=== PATIENT | male | born 1960 | race Two or more races ===

== ENCOUNTER 2016-12-27 12:48 | Inpatient (IN) | payer OTHER ==
[2016-12-27 14:17] VITALS: BMI 29.2
--- NOTE | 2016-12-27 15:58 | HP ---
Admission ROS [facility] Chief Complaint: I am here for rehab, was detox 2weeks ago at a crisis center in [place] and ready now for rehab. Allergies/Adverse Reactions: Allergies Allergy/AdvReac Type Severity Reaction Status Date / Time Fish Containing Products Allergy Severe Hives Verified 12/27/16 15:37 shellfish derived Allergy Severe Hives Verified 12/27/16 15:37 No Known Drug Allergies Allergy Verified 12/27/16 15:37 tomato AdvReac Nausea Verified 12/27/16 15:37 History of Present Illness: pt is a 56yr old male with a history of alcohol dependence seeking rehab for treatment. Pt was detoxed at a [place] crisis center 2 weeks ago. Exam Limitations: No Limitations - Ebola screening Have you traveled outside of the country in the last 21 days: No Have you had contact with anyone from an Ebola affected area: No Have you been sick,other than usual withdrawal symptoms: No Do you have a fever: No - Review of Systems Constitutional: Loss of Appetite EENT: reports: No Symptoms Reported Respiratory: reports: No Symptoms reported Cardiac: reports: No Symptoms Reported GI: reports: Indigestion : reports: No Symptoms Reported Musculoskeletal: reports: No Symptoms Reported Integumentary: reports: No Symptoms Reported Neuro: reports: Headache Endocrine: reports: No Symptoms Reported Hematology: reports: No Symptoms Reported Psychiatric: reports: Judgement Intact, Mood/Affect Appropiate, Orientated x3, Agitated Other Systems: Reviewed and Negative Patient History - Patient Medical History Hx Anemia: No Hx Asthma: No Hx Chronic Obstructive Pulmonary Disease (COPD): No Hx Cancer: No Hx Cardiac Disorders: No Hx Congestive Heart Failure: No Hx Hypertension: No Hx Hypercholesterolemia: No Hx Pacemaker: No HX Cerebrovascular Accident: No Hx Seizures: No (DENIES) Hx Dementia: No Hx Diabetes: Yes (Pt on Metformin and Levimir; ) Hx Gastrointestinal Disorders: Yes (GERD) Hx Liver Disease: No Hx Genitourinary Disorders: No Hx Sexually Transmitted Disorders: No Hx Renal Disease (ESRD): No Hx Thyroid Disease: No Hx Human Immunodeficiency Virus (HIV): No (negative) Hx Hepatitis C: No (negative) Hx Depression: Yes Hx Suicide Attempt: No (denies) Hx Bipolar Disorder: Yes Hx Schizophrenia: No - Patient Surgical History Past Surgical History: No Hx Neurologic Surgery: No Hx Cataract Extraction: No Hx Cardiac Surgery: No Hx Lung Surgery: No Hx Breast Surgery: No Hx Breast Biopsy: No Hx Abdominal Surgery: No Hx Appendectomy: No Hx Cholecystectomy: No Hx Genitourinary Surgery: No Hx Section: No Hx Orthopedic Surgery: Yes (L knee in 2004) Anesthesia Reaction: No - PPD History Previous Implant?: Yes PPD to be Administered?: Yes - Reproductive History Patient is a Female of Child Bearing Age (11 -55 yrs old): No - Smoking Cessation Smoking history: Never smoked Have you smoked in the past 12 months: No Aproximately how many cigarettes per day: 0 Cigars Per Day: 0 Hx Chewing Tobacco Use: No Initiated information on smoking cessation: No - Substance & Tx. History Hx Alcohol Use: Yes Hx Substance Use: Yes Substance Use Type: Alcohol, Cocaine Hx Substance Use Treatment: Yes - Substances Abused Alcohol Route: Oral Frequency: Daily Amount used: 1 case of beer. Age of first use: 17 Date of Last Use: 12/13/16 Cocaine Route: Inhalation Frequency: 1-3 times last 30 days Amount used: $500 Age of first use: 17 Date of Last Use: 12/24/16 Family Disease History - Family Disease History Family Disease History: Diabetes: Brother (HTN), Other: Father (alcohol dependence) Admission Physical Exam S - Vital Signs Vital Signs: Vital Signs - 24 hr 12/27/16 14:15 Temperature 98 F Pulse Rate 94 H Respiratory 20 Rate Blood Pressure 138/89 - Physical General Appearance: Yes: Appropriately Dressed, Mild Distress HEENTM: Yes: Normal Voice Respiratory: Yes: Lungs Clear, Normal Breath Sounds, No Respiratory Distress Neck: Yes: No masses,lesions,Nodules Breast: Yes: Within Normal Limits Cardiology: Yes: Regular Rhythm, Regular Rate, S1, S2 Abdominal: Yes: Normal Bowel Sounds Genitourinary: Yes: Within Normal Limits Back: Yes: Normal Inspection Musculoskeletal: Yes: full range of Motion Extremities: Yes: Normal Inspection, Non-Tender, Tremors Neurological: Yes: Fully Oriented, Alert, Normal Response Integumentary: Yes: Normal Color Lymphatic: Yes: Within Normal Limits - Diagnostic (1) Cocaine abuse Current Visit: Yes Status: Chronic (2) DM Diabetes mellitus type 2 Current Visit: Yes Status: Chronic (3) Gastroesophageal reflux disease Current Visit: Yes Status: Chronic (4) Alcohol abuse, in remission Current Visit: No Status: Chronic Cleared for Admission [facility] - Detox or Rehab [facility] Level of Care: Medically Managed Claeared for Rehab Admission: Yes [facility] Breath Alcohol Content Breath Alcohol Content: 0 Urine Drug Screen - Results Drug Screen Negative: No Urine Drug Screen Results: GALINA-Cocaine
[2016-12-27] MEDS ORDERED: hydrOXYzine PAMOATE 50 MG CAPSULE (FP) PO PRN (16:09)
[2016-12-27] MEDS ORDERED: diphenhydrAMINE HCL 50 MG CAPSULE PO PRN (16:09)
[2016-12-27] MEDS ORDERED: LOPERAMIDE HCL 2 MG CAPSULE PO PRN (16:09)
[2016-12-27] MEDS ORDERED: ACETAMINOPHEN 325 MG TABLET (FP) PO PRN (16:09)
[2016-12-27] MEDS ORDERED: MAG HYDROX/AL HYDROX/SIMETH 30 ML UNIT-DOSE CUP PO PRN (16:09)
[2016-12-27] MEDS ORDERED: MAGNESIUM CITRATE 300 ML BOTTLE PO PRN (16:09)
[2016-12-27] MEDS ORDERED: MAGNESIUM HYDROX 2400MG/30ML ORAL SUSPENSION 30 ML CUP PO PRN (16:09)
[2016-12-27] MEDS ORDERED: guaiFENesin/D-METHORPHAN HB 10 ML UNIT-DOSE CUPS PO PRN (16:09)
[2016-12-27] MEDS ORDERED: MENTHOL/PHENOL 1 EACH UD MM PRN (16:09)
[2016-12-27] MEDS ORDERED: P-EPHED 60MG/TRIPROLIDI 2.5MG TABLET PO PRN (16:09)
[2016-12-27] MEDS: INSULIN (NOVOLOG) ASPART 100 UNITS/ML 10ML VIAL SQ SCH (19:31)
[2016-12-27] MEDS ORDERED: INSULIN (NOVOLOG) ASPART 100 UNITS/ML 10ML VIAL ONE (19:32)
[2016-12-27] MEDS ORDERED: TUBERCULIN PPD 5 TU/0.1ML VIAL ID ONE (19:35)
[2016-12-27] MEDS: metFORMIN HCL 500 MG TABLET (FP) PO SCH (19:38)
[2016-12-27] MEDS ORDERED: traZODone HCL 150 MG TABLET PO SCH (22:00)
[2016-12-27] MEDS: QUEtiapine FUMARATE 300 MG TABLET PO SCH (22:08)
[2016-12-27] MEDS: GABAPENTIN 400 MG CAPSULE (FP) PO SCH (22:08)
[2016-12-27] MEDS: DIVALPROEX SODIUM 500 MG TABLET E.C. PO SCH (22:08)
[2016-12-27] MEDS: DOCUSATE SODIUM 100 MG CAPSULE (FP) PO SCH (22:09)
[2016-12-27] MEDS: INSULIN DETEMIR 100 UNITS/ML MDV SQ SCH (22:19)
[2016-12-27] MEDS: THIAMINE HCL 100 MG TABLET (FP) PO SCH (22:20)
[2016-12-27] MEDS: traZODone HCL 50 MG TABLET (FP) PO SCH (22:40)
[2016-12-28] MEDS: GABAPENTIN 400 MG CAPSULE (FP) PO SCH ×3 (06:33→22:07)
[2016-12-28] MEDS: DOCUSATE SODIUM 100 MG CAPSULE (FP) PO SCH ×3 (06:34→22:08)
[2016-12-28] MEDS: metFORMIN HCL 500 MG TABLET (FP) PO SCH ×2 (06:34→16:48)
[2016-12-28] MEDS: INSULIN (NOVOLOG) ASPART 100 UNITS/ML 10ML VIAL SQ SCH ×3 (06:35→16:48)
[2016-12-28] MEDS ORDERED: INSULIN (NOVOLOG) ASPART 100 UNITS/ML 10ML VIAL ONE ×3 (06:45→22:26)
[2016-12-28] MEDS: SERTRALINE HCL 50 MG TABLET (FP) PO SCH (10:31)
[2016-12-28] MEDS: PRENATAL VITAMINS W/ FOLIC ACID TABLET (FP) PO SCH (10:31)
[2016-12-28] MEDS: PANTOPRAZOLE 40 MG TABLET (FP) PO SCH (10:31)
[2016-12-28 10:44] LABS: MCH 28.9 pg (25.7-33.7); MCHC 33.7 g/dl (32.0-35.9); MEAN CELL VOLUME 85.6 fl (80-96); MEAN PLT VOLUME 9.6 fl (7.5-11.1); PLATELET COUNT 161 K/MM3 (134-434); RDW 14.4 % (11.9-15.9); WHITE BLOOD COUNT 5.1 K/mm3 (4.0-10.0)
[2016-12-28 10:48] LABS: ALBUMIN 4.3 g/dl (3.4-5.0); ALK PHOS 64 U/L (45-117); ANION GAP 9 (8-16); BILIRUBIN,TOTAL 0.8 mg/dL (0.2-1.0); CO2 27 mmol/L (21-32); COCKROFT - GAULT 113.77; GLUCOSE,RANDOM 241 mg/dL (74-106); SGOT/AST 42 U/L (15-37); SGPT/ALT 40 U/L (12-78); TOT PROT 8.2 g/dl (6.4-8.2)
[2016-12-28 11:06] LABS: URINE APPEARANCE CLEAR; URINE BILIRUBIN NEGATIVE (NEGATIVE); URINE BLOOD NEGATIVE (NEGATIVE); URINE COLOR YELLOW; URINE GLUCOSE (UA) 3+ (NEGATIVE); URINE KETONE NEGATIVE (NEGATIVE); URINE LEUK ESTERASE NEGATIVE (NEGATIVE); URINE NITRITE NEGATIVE (NEGATIVE); URINE PROTEIN NEGATIVE (NEGATIVE); URINE UROBILINOGEN 4.0 E.U/dl E.U./dl (0.2-1.0)
--- NOTE | 2016-12-28 19:23 | EKG ---
Test Reason : Blood Pressure : / mmHG Vent. Rate : 086 BPM Atrial Rate : 086 BPM P-R Int : 158 ms QRS Dur : 100 ms QT Int : 374 ms P-R-T Axes : 049 -46 036 degrees QTc Int : 447 ms NORMAL SINUS RHYTHM LEFT ANTERIOR FASCICULAR BLOCK MINIMAL VOLTAGE CRITERIA FOR LVH, MAY BE NORMAL VARIANT ABNORMAL ECG NO PREVIOUS ECGS AVAILABLE Confirmed by ANJU BONILLA MD ([id number]) on 12/28/2016 7:22:52 PM Referred By: Confirmed By:ANJU BONILLA MD
[2016-12-28] MEDS: QUEtiapine FUMARATE 300 MG TABLET PO SCH (22:07)
[2016-12-28] MEDS: DIVALPROEX SODIUM 500 MG TABLET E.C. PO SCH (22:07)
[2016-12-28] MEDS: THIAMINE HCL 100 MG TABLET (FP) PO SCH (22:08)
[2016-12-28] MEDS: traZODone HCL 50 MG TABLET (FP) PO SCH (22:08)
[2016-12-28] MEDS: INSULIN DETEMIR 100 UNITS/ML MDV SQ SCH (22:10)
[2016-12-29] MEDS: metFORMIN HCL 500 MG TABLET (FP) PO SCH ×2 (06:32→16:36)
[2016-12-29] MEDS: GABAPENTIN 400 MG CAPSULE (FP) PO SCH ×3 (06:32→22:03)
[2016-12-29] MEDS: DOCUSATE SODIUM 100 MG CAPSULE (FP) PO SCH ×3 (06:32→22:03)
[2016-12-29] MEDS: INSULIN (NOVOLOG) ASPART 100 UNITS/ML 10ML VIAL SQ SCH ×3 (06:33→16:37)
[2016-12-29] MEDS ORDERED: INSULIN (NOVOLOG) ASPART 100 UNITS/ML 10ML VIAL ONE ×3 (06:38→18:14)
[2016-12-29] MEDS: SERTRALINE HCL 50 MG TABLET (FP) PO SCH (10:24)
[2016-12-29] MEDS: PRENATAL VITAMINS W/ FOLIC ACID TABLET (FP) PO SCH (10:24)
[2016-12-29] MEDS: PANTOPRAZOLE 40 MG TABLET (FP) PO SCH (10:24)
[2016-12-29] MEDS: traZODone HCL 50 MG TABLET (FP) PO SCH (22:02)
[2016-12-29] MEDS: THIAMINE HCL 100 MG TABLET (FP) PO SCH (22:03)
[2016-12-29] MEDS: DIVALPROEX SODIUM 500 MG TABLET E.C. PO SCH (22:03)
[2016-12-29] MEDS: QUEtiapine FUMARATE 300 MG TABLET PO SCH (22:03)
[2016-12-29] MEDS: INSULIN DETEMIR 100 UNITS/ML MDV SQ SCH (22:04)
[2016-12-30] MEDS: INSULIN (NOVOLOG) ASPART 100 UNITS/ML 10ML VIAL SQ SCH ×3 (06:21→16:45)
[2016-12-30] MEDS: metFORMIN HCL 500 MG TABLET (FP) PO SCH ×2 (06:21→16:45)
[2016-12-30] MEDS: GABAPENTIN 400 MG CAPSULE (FP) PO SCH ×3 (06:21→22:05)
[2016-12-30] MEDS: DOCUSATE SODIUM 100 MG CAPSULE (FP) PO SCH ×3 (06:21→22:05)
[2016-12-30] MEDS ORDERED: INSULIN (NOVOLOG) ASPART 100 UNITS/ML 10ML VIAL ONE ×3 (06:49→22:32)
--- NOTE | 2016-12-30 07:41 | HP ---
Psychiatrist Admission - Data Date of interview: 12/30/16 Admission source: [facility] Identifying data: This is one on the several inpatient rehabilitation admissions for this 56 year old male who is ,a father of one, domiciled,unemployed and supported on SSD benefits. Medical History: Diabetes mellitus, low back pain/sciatica, and GERD. H/O surgery to left knee 14 years ago due to work related injury. Psychiatric History: Patient reports his first psychiatric hospitalization was in 2006 due to depression and suicidal ideation) and he [facility]osed with Schizoaffective Disorder.Multiple subsequent psychiatric hospitalizations (eight are accounted by patient) followed over the years, with most recent 3 years ago at [facility], Was admitted to [facility] and [facility]. Reports wili the past few months was visiting ERs to obtain his scripts, he currently on Depakote 100 mg po bid,Trazodone 150 mg po hs and Seroquel 300 mg po hs, Zoloft 150 mg po hs. Physical/Sexual Abuse/Trauma History: Reports no history of physical or sexual abuse, and no history of service. Receives SSD as result of on the job injury to knee (see above). Vital Signs: Vital Signs - 24 hr 12/29/16 12/30/16 12/30/16 13:45 00:30 03:30 Temperature Pulse Rate 89 Respiratory 18 18 18 Rate Blood Pressure 142/73 12/30/16 06:47 Temperature 98.1 F Pulse Rate 84 Respiratory 18 Rate Blood Pressure 145/82 Allergies/Adverse Reactions: Allergies Allergy/AdvReac Type Severity Reaction Status Date / Time Fish Containing Products Allergy Severe Hives Verified 12/27/16 15:37 shellfish derived Allergy Severe Hives Verified 12/27/16 15:37 No Known Drug Allergies Allergy Verified 12/27/16 15:37 tomato AdvReac Nausea Verified 12/27/16 15:37 Date of last physical exam: 12/27/16 Concur with the findings of this exam: Yes - Substance Abuse/Tx History Hx Alcohol Use: Yes (a case of beer daily) Hx Substance Use: Yes Substance Use Type: Cocaine (1-3 times a months) Hx Substance Use Treatment: Yes ([facility] - Admission Criteria Previous failed treatment: Yes Poor recovery environment: Yes Comorbidities: Yes Lacks judgement: Yes Mental Status Exam - Mental Status Exam Alert and Oriented to: Time, Place, Person Cognitive Function: Good Patient Appearance: Well Groomed Mood: Hopeful Affect: Appropriate, Mood Congruent Patient Behavior: Appropriate, Cooperative Speech Pattern: Clear, Appropriate Voice Loudness: Normal Thought Process: Intact, Goal Oriented Thought Disorder: Not Present Hallucinations: Denies Suicidal Ideation: Denies Homicidal Ideation: Denies Insight/Judgement: Fair Sleep: Fair Appetite: Good Muscle strength/Tone: Normal Gait/Station: Normal Psychiatric Findings - Problem List ([place] 1, 2,3) (1) Cocaine abuse Current Visit: Yes Status: Chronic (2) DM Diabetes mellitus type 2 Current Visit: Yes Status: Chronic (3) Gastroesophageal reflux disease Current Visit: Yes Status: Chronic (4) Schizoaffective disorder Current Visit: No Status: Chronic Comment: Endorsed by the patient in this interview. - Initial Treatment Plan Initial Treatment Plan: continue the same medications, will do depakote level in 3 days, monitor progress as needed.
[2016-12-30] MEDS: PRENATAL VITAMINS W/ FOLIC ACID TABLET (FP) PO SCH (10:41)
[2016-12-30] MEDS: PANTOPRAZOLE 40 MG TABLET (FP) PO SCH (10:41)
[2016-12-30] MEDS: SERTRALINE HCL 50 MG TABLET (FP) PO SCH (10:42)
[2016-12-30] MEDS: THIAMINE HCL 100 MG TABLET (FP) PO SCH (22:04)
[2016-12-30] MEDS: QUEtiapine FUMARATE 300 MG TABLET PO SCH (22:04)
[2016-12-30] MEDS: DIVALPROEX SODIUM 500 MG TABLET E.C. PO SCH (22:05)
[2016-12-30] MEDS: traZODone HCL 50 MG TABLET (FP) PO SCH (22:05)
[2016-12-30] MEDS: INSULIN DETEMIR 100 UNITS/ML MDV SQ SCH (22:07)
[2016-12-31] MEDS: GABAPENTIN 400 MG CAPSULE (FP) PO SCH ×3 (06:07→21:58)
[2016-12-31] MEDS: INSULIN (NOVOLOG) ASPART 100 UNITS/ML 10ML VIAL SQ SCH ×3 (06:07→16:50)
[2016-12-31] MEDS: metFORMIN HCL 500 MG TABLET (FP) PO SCH ×2 (06:07→16:51)
[2016-12-31] MEDS: DOCUSATE SODIUM 100 MG CAPSULE (FP) PO SCH ×3 (06:07→21:59)
[2016-12-31] MEDS ORDERED: INSULIN (NOVOLOG) ASPART 100 UNITS/ML 10ML VIAL ONE ×3 (06:48→16:50)
[2016-12-31] MEDS: SERTRALINE HCL 50 MG TABLET (FP) PO SCH (10:34)
[2016-12-31] MEDS: PANTOPRAZOLE 40 MG TABLET (FP) PO SCH (10:35)
[2016-12-31] MEDS: PRENATAL VITAMINS W/ FOLIC ACID TABLET (FP) PO SCH (10:35)
[2016-12-31] MEDS: traZODone HCL 50 MG TABLET (FP) PO SCH (21:58)
[2016-12-31] MEDS: THIAMINE HCL 100 MG TABLET (FP) PO SCH (21:58)
[2016-12-31] MEDS: QUEtiapine FUMARATE 300 MG TABLET PO SCH (21:58)
[2016-12-31] MEDS: DIVALPROEX SODIUM 500 MG TABLET E.C. PO SCH (21:58)
[2016-12-31] MEDS: INSULIN DETEMIR 100 UNITS/ML MDV SQ SCH (21:59)
[2017-01-01] MEDS: INSULIN (NOVOLOG) ASPART 100 UNITS/ML 10ML VIAL SQ SCH ×3 (06:18→16:49)
[2017-01-01] MEDS: metFORMIN HCL 500 MG TABLET (FP) PO SCH ×2 (06:18→16:51)
[2017-01-01] MEDS: GABAPENTIN 400 MG CAPSULE (FP) PO SCH ×3 (06:18→22:03)
[2017-01-01] MEDS: DOCUSATE SODIUM 100 MG CAPSULE (FP) PO SCH ×3 (06:18→22:03)
[2017-01-01] MEDS ORDERED: INSULIN (NOVOLOG) ASPART 100 UNITS/ML 10ML VIAL ONE ×3 (06:40→16:50)
[2017-01-01] MEDS: SERTRALINE HCL 50 MG TABLET (FP) PO SCH (10:56)
[2017-01-01] MEDS: PANTOPRAZOLE 40 MG TABLET (FP) PO SCH (10:56)
[2017-01-01] MEDS: PRENATAL VITAMINS W/ FOLIC ACID TABLET (FP) PO SCH (10:56)
[2017-01-01] MEDS: IBUPROFEN 400 MG TABLET (FP) PO PRN (17:36)
[2017-01-01] MEDS: THIAMINE HCL 100 MG TABLET (FP) PO SCH (22:03)
[2017-01-01] MEDS: traZODone HCL 50 MG TABLET (FP) PO SCH (22:03)
[2017-01-01] MEDS: DIVALPROEX SODIUM 500 MG TABLET E.C. PO SCH (22:03)
[2017-01-01] MEDS: QUEtiapine FUMARATE 300 MG TABLET PO SCH (22:03)
[2017-01-01] MEDS: INSULIN DETEMIR 100 UNITS/ML MDV SQ SCH (22:08)
[2017-01-02] MEDS: metFORMIN HCL 500 MG TABLET (FP) PO SCH ×2 (06:07→16:39)
[2017-01-02] MEDS: GABAPENTIN 400 MG CAPSULE (FP) PO SCH ×3 (06:07→22:07)
[2017-01-02] MEDS: INSULIN (NOVOLOG) ASPART 100 UNITS/ML 10ML VIAL SQ SCH ×3 (06:07→16:40)
[2017-01-02] MEDS: DOCUSATE SODIUM 100 MG CAPSULE (FP) PO SCH ×3 (06:07→22:07)
[2017-01-02] MEDS ORDERED: INSULIN (NOVOLOG) ASPART 100 UNITS/ML 10ML VIAL ONE ×3 (06:45→16:38)
[2017-01-02] MEDS: SERTRALINE HCL 50 MG TABLET (FP) PO SCH (10:50)
[2017-01-02] MEDS: PRENATAL VITAMINS W/ FOLIC ACID TABLET (FP) PO SCH (10:50)
[2017-01-02] MEDS: PANTOPRAZOLE 40 MG TABLET (FP) PO SCH (10:50)
[2017-01-02] MEDS: DIVALPROEX SODIUM 500 MG TABLET E.C. PO SCH (22:07)
[2017-01-02] MEDS: traZODone HCL 50 MG TABLET (FP) PO SCH (22:07)
[2017-01-02] MEDS: QUEtiapine FUMARATE 300 MG TABLET PO SCH (22:08)
[2017-01-02] MEDS: THIAMINE HCL 100 MG TABLET (FP) PO SCH (22:08)
[2017-01-02] MEDS: INSULIN DETEMIR 100 UNITS/ML MDV SQ SCH (22:10)
[2017-01-03] MEDS: DOCUSATE SODIUM 100 MG CAPSULE (FP) PO SCH ×3 (05:54→22:03)
[2017-01-03] MEDS: GABAPENTIN 400 MG CAPSULE (FP) PO SCH ×3 (05:54→22:03)
[2017-01-03] MEDS ORDERED: INSULIN (NOVOLOG) ASPART 100 UNITS/ML 10ML VIAL ONE ×3 (06:38→16:50)
[2017-01-03] MEDS: metFORMIN HCL 500 MG TABLET (FP) PO SCH ×2 (06:41→16:51)
[2017-01-03] MEDS: INSULIN (NOVOLOG) ASPART 100 UNITS/ML 10ML VIAL SQ SCH ×3 (06:41→16:52)
[2017-01-03] MEDS: SERTRALINE HCL 50 MG TABLET (FP) PO SCH (10:45)
[2017-01-03] MEDS: PANTOPRAZOLE 40 MG TABLET (FP) PO SCH (10:45)
[2017-01-03] MEDS: PRENATAL VITAMINS W/ FOLIC ACID TABLET (FP) PO SCH (10:45)
[2017-01-03] MEDS: IBUPROFEN 400 MG TABLET (FP) PO PRN (15:56)
[2017-01-03] MEDS: THIAMINE HCL 100 MG TABLET (FP) PO SCH (22:03)
[2017-01-03] MEDS: QUEtiapine FUMARATE 300 MG TABLET PO SCH (22:03)
[2017-01-03] MEDS: DIVALPROEX SODIUM 500 MG TABLET E.C. PO SCH (22:03)
[2017-01-03] MEDS: traZODone HCL 50 MG TABLET (FP) PO SCH (22:03)
[2017-01-03] MEDS: INSULIN DETEMIR 100 UNITS/ML MDV SQ SCH (22:05)
[2017-01-04] MEDS: INSULIN (NOVOLOG) ASPART 100 UNITS/ML 10ML VIAL SQ SCH ×3 (06:10→16:44)
[2017-01-04] MEDS: GABAPENTIN 400 MG CAPSULE (FP) PO SCH ×3 (06:10→21:56)
[2017-01-04] MEDS: metFORMIN HCL 500 MG TABLET (FP) PO SCH ×2 (06:10→16:45)
[2017-01-04] MEDS: DOCUSATE SODIUM 100 MG CAPSULE (FP) PO SCH ×3 (06:10→21:55)
[2017-01-04] MEDS ORDERED: INSULIN (NOVOLOG) ASPART 100 UNITS/ML 10ML VIAL ONE ×3 (07:09→16:44)
[2017-01-04] MEDS: SERTRALINE HCL 50 MG TABLET (FP) PO SCH (10:40)
[2017-01-04] MEDS: PANTOPRAZOLE 40 MG TABLET (FP) PO SCH (10:40)
[2017-01-04] MEDS: PRENATAL VITAMINS W/ FOLIC ACID TABLET (FP) PO SCH (10:40)
[2017-01-04] MEDS: QUEtiapine FUMARATE 300 MG TABLET PO SCH (21:55)
[2017-01-04] MEDS: THIAMINE HCL 100 MG TABLET (FP) PO SCH (21:55)
[2017-01-04] MEDS: traZODone HCL 50 MG TABLET (FP) PO SCH (21:56)
[2017-01-04] MEDS: INSULIN DETEMIR 100 UNITS/ML MDV SQ SCH (21:56)
[2017-01-04] MEDS: DIVALPROEX SODIUM 500 MG TABLET E.C. PO SCH (21:56)
[2017-01-05] MEDS: DOCUSATE SODIUM 100 MG CAPSULE (FP) PO SCH ×3 (06:10→21:46)
[2017-01-05] MEDS: metFORMIN HCL 500 MG TABLET (FP) PO SCH ×2 (06:10→16:50)
[2017-01-05] MEDS: INSULIN (NOVOLOG) ASPART 100 UNITS/ML 10ML VIAL SQ SCH ×3 (06:10→16:49)
[2017-01-05] MEDS: GABAPENTIN 400 MG CAPSULE (FP) PO SCH ×3 (06:10→21:46)
[2017-01-05] MEDS ORDERED: INSULIN (NOVOLOG) ASPART 100 UNITS/ML 10ML VIAL ONE ×3 (06:50→16:50)
[2017-01-05] MEDS: SERTRALINE HCL 50 MG TABLET (FP) PO SCH (10:47)
[2017-01-05] MEDS: PANTOPRAZOLE 40 MG TABLET (FP) PO SCH (10:47)
[2017-01-05] MEDS: PRENATAL VITAMINS W/ FOLIC ACID TABLET (FP) PO SCH (10:47)
[2017-01-05] MEDS: QUEtiapine FUMARATE 300 MG TABLET PO SCH (21:46)
[2017-01-05] MEDS: DIVALPROEX SODIUM 500 MG TABLET E.C. PO SCH (21:46)
[2017-01-05] MEDS: traZODone HCL 50 MG TABLET (FP) PO SCH (21:46)
[2017-01-05] MEDS: INSULIN DETEMIR 100 UNITS/ML MDV SQ SCH (21:46)
[2017-01-05] MEDS: THIAMINE HCL 100 MG TABLET (FP) PO SCH (21:46)
[2017-01-06] MEDS: DOCUSATE SODIUM 100 MG CAPSULE (FP) PO SCH ×3 (06:34→22:06)
[2017-01-06] MEDS: GABAPENTIN 400 MG CAPSULE (FP) PO SCH ×3 (06:34→22:05)
[2017-01-06] MEDS: metFORMIN HCL 500 MG TABLET (FP) PO SCH ×2 (06:34→16:42)
[2017-01-06] MEDS: INSULIN (NOVOLOG) ASPART 100 UNITS/ML 10ML VIAL SQ SCH ×3 (06:35→16:45)
[2017-01-06] MEDS ORDERED: INSULIN (NOVOLOG) ASPART 100 UNITS/ML 10ML VIAL ONE ×3 (06:48→16:44)
[2017-01-06] MEDS: SERTRALINE HCL 50 MG TABLET (FP) PO SCH (10:46)
[2017-01-06] MEDS: PANTOPRAZOLE 40 MG TABLET (FP) PO SCH (10:46)
[2017-01-06] MEDS: PRENATAL VITAMINS W/ FOLIC ACID TABLET (FP) PO SCH (10:46)
--- NOTE | 2017-01-06 10:56 | PN ---
[facility] Progress Note Note: pain in the left lower gum,gingivitis,pen vee k 500 mgs po q 6hrs x 7days, motrin 800mgs tid prn,
[2017-01-06] MEDS: PENICILLIN V POTASSIUM 500 MG TABLET PO SCH ×2 (11:57→17:44)
[2017-01-06] MEDS: IBUPROFEN 400 MG TABLET (FP) PO PRN (16:16)
[2017-01-06] MEDS: DIVALPROEX SODIUM 500 MG TABLET E.C. PO SCH (22:05)
[2017-01-06] MEDS: QUEtiapine FUMARATE 300 MG TABLET PO SCH (22:06)
[2017-01-06] MEDS: traZODone HCL 50 MG TABLET (FP) PO SCH (22:06)
[2017-01-06] MEDS: THIAMINE HCL 100 MG TABLET (FP) PO SCH (22:06)
[2017-01-06] MEDS: INSULIN DETEMIR 100 UNITS/ML MDV SQ SCH (22:07)
[2017-01-07] MEDS: PENICILLIN V POTASSIUM 500 MG TABLET PO SCH ×5 (00:44→23:55)
[2017-01-07] MEDS: DOCUSATE SODIUM 100 MG CAPSULE (FP) PO SCH ×3 (06:36→21:51)
[2017-01-07] MEDS: metFORMIN HCL 500 MG TABLET (FP) PO SCH ×2 (06:36→16:40)
[2017-01-07] MEDS: GABAPENTIN 400 MG CAPSULE (FP) PO SCH ×3 (06:36→21:51)
[2017-01-07] MEDS: INSULIN (NOVOLOG) ASPART 100 UNITS/ML 10ML VIAL SQ SCH ×3 (06:37→16:40)
[2017-01-07] MEDS ORDERED: INSULIN (NOVOLOG) ASPART 100 UNITS/ML 10ML VIAL ONE ×3 (06:39→16:38)
[2017-01-07] MEDS: SERTRALINE HCL 50 MG TABLET (FP) PO SCH (10:44)
[2017-01-07] MEDS: IBUPROFEN 400 MG TABLET (FP) PO PRN ×2 (10:45→18:11)
[2017-01-07] MEDS: PRENATAL VITAMINS W/ FOLIC ACID TABLET (FP) PO SCH (10:45)
[2017-01-07] MEDS: PANTOPRAZOLE 40 MG TABLET (FP) PO SCH (10:45)
[2017-01-07] MEDS: DIVALPROEX SODIUM 500 MG TABLET E.C. PO SCH (21:51)
[2017-01-07] MEDS: THIAMINE HCL 100 MG TABLET (FP) PO SCH (21:51)
[2017-01-07] MEDS: traZODone HCL 50 MG TABLET (FP) PO SCH (21:51)
[2017-01-07] MEDS: QUEtiapine FUMARATE 300 MG TABLET PO SCH (21:51)
[2017-01-07] MEDS: INSULIN DETEMIR 100 UNITS/ML MDV SQ SCH (21:53)
[2017-01-08] MEDS: GABAPENTIN 400 MG CAPSULE (FP) PO SCH ×3 (06:15→22:12)
[2017-01-08] MEDS: metFORMIN HCL 500 MG TABLET (FP) PO SCH ×2 (06:16→16:56)
[2017-01-08] MEDS: PENICILLIN V POTASSIUM 500 MG TABLET PO SCH ×4 (06:16→23:44)
[2017-01-08] MEDS: INSULIN (NOVOLOG) ASPART 100 UNITS/ML 10ML VIAL SQ SCH ×4 (06:16→22:11)
[2017-01-08] MEDS: DOCUSATE SODIUM 100 MG CAPSULE (FP) PO SCH ×3 (06:16→22:12)
[2017-01-08] MEDS ORDERED: INSULIN (NOVOLOG) ASPART 100 UNITS/ML 10ML VIAL ONE ×4 (06:56→22:11)
[2017-01-08] MEDS: SERTRALINE HCL 50 MG TABLET (FP) PO SCH (10:02)
[2017-01-08] MEDS: PANTOPRAZOLE 40 MG TABLET (FP) PO SCH (10:02)
[2017-01-08] MEDS: PRENATAL VITAMINS W/ FOLIC ACID TABLET (FP) PO SCH (10:02)
[2017-01-08] MEDS: IBUPROFEN 400 MG TABLET (FP) PO PRN ×2 (11:01→19:56)
[2017-01-08] MEDS: THIAMINE HCL 100 MG TABLET (FP) PO SCH (22:11)
[2017-01-08] MEDS: traZODone HCL 50 MG TABLET (FP) PO SCH (22:11)
[2017-01-08] MEDS: QUEtiapine FUMARATE 300 MG TABLET PO SCH (22:12)
[2017-01-08] MEDS: INSULIN DETEMIR 100 UNITS/ML MDV SQ SCH (22:12)
[2017-01-08] MEDS: DIVALPROEX SODIUM 500 MG TABLET E.C. PO SCH (22:12)
[2017-01-09] MEDS: DOCUSATE SODIUM 100 MG CAPSULE (FP) PO SCH ×3 (06:02→22:17)
[2017-01-09] MEDS: GABAPENTIN 400 MG CAPSULE (FP) PO SCH ×3 (06:02→22:17)
[2017-01-09] MEDS: PENICILLIN V POTASSIUM 500 MG TABLET PO SCH ×4 (06:02→23:17)
[2017-01-09] MEDS: INSULIN (NOVOLOG) ASPART 100 UNITS/ML 10ML VIAL SQ SCH ×4 (06:02→22:16)
[2017-01-09] MEDS: metFORMIN HCL 500 MG TABLET (FP) PO SCH ×2 (06:02→16:56)
[2017-01-09] MEDS ORDERED: INSULIN (NOVOLOG) ASPART 100 UNITS/ML 10ML VIAL ONE ×3 (06:51→17:19)
[2017-01-09] MEDS: SERTRALINE HCL 50 MG TABLET (FP) PO SCH (10:17)
[2017-01-09] MEDS: PRENATAL VITAMINS W/ FOLIC ACID TABLET (FP) PO SCH (10:17)
[2017-01-09] MEDS: PANTOPRAZOLE 40 MG TABLET (FP) PO SCH (10:17)
[2017-01-09] MEDS: IBUPROFEN 400 MG TABLET (FP) PO PRN (10:18)
[2017-01-09] MEDS: CYCLOBENZAPRINE HCL 10 MG TABLET (FP) PO PRN (13:09)
[2017-01-09] MEDS: QUEtiapine FUMARATE 300 MG TABLET PO SCH (22:17)
[2017-01-09] MEDS: THIAMINE HCL 100 MG TABLET (FP) PO SCH (22:17)
[2017-01-09] MEDS: traZODone HCL 50 MG TABLET (FP) PO SCH (22:17)
[2017-01-09] MEDS: INSULIN DETEMIR 100 UNITS/ML MDV SQ SCH (22:17)
[2017-01-09] MEDS: DIVALPROEX SODIUM 500 MG TABLET E.C. PO SCH (22:17)
[2017-01-10] MEDS: PENICILLIN V POTASSIUM 500 MG TABLET PO SCH ×3 (06:07→17:32)
[2017-01-10] MEDS: INSULIN (NOVOLOG) ASPART 100 UNITS/ML 10ML VIAL SQ SCH ×4 (06:07→22:20)
[2017-01-10] MEDS: DOCUSATE SODIUM 100 MG CAPSULE (FP) PO SCH ×3 (06:07→22:15)
[2017-01-10] MEDS: GABAPENTIN 400 MG CAPSULE (FP) PO SCH ×3 (06:07→22:15)
[2017-01-10] MEDS: metFORMIN HCL 500 MG TABLET (FP) PO SCH ×2 (06:07→16:50)
[2017-01-10] MEDS ORDERED: INSULIN (NOVOLOG) ASPART 100 UNITS/ML 10ML VIAL ONE ×5 (07:01→23:10)
[2017-01-10] MEDS: PANTOPRAZOLE 40 MG TABLET (FP) PO SCH (10:41)
[2017-01-10] MEDS: SERTRALINE HCL 50 MG TABLET (FP) PO SCH (10:41)
[2017-01-10] MEDS: PRENATAL VITAMINS W/ FOLIC ACID TABLET (FP) PO SCH (10:41)
[2017-01-10] MEDS: CYCLOBENZAPRINE HCL 10 MG TABLET (FP) PO PRN (10:41)
[2017-01-10] MEDS: IBUPROFEN 400 MG TABLET (FP) PO PRN ×2 (11:58→22:16)
--- NOTE | 2017-01-10 14:33 | PN ---
S Progress Note Note: blood result reviewed with the patient , continue the same management.
[2017-01-10] MEDS: QUEtiapine FUMARATE 300 MG TABLET PO SCH (22:13)
[2017-01-10] MEDS: DIVALPROEX SODIUM 500 MG TABLET E.C. PO SCH (22:14)
[2017-01-10] MEDS: traZODone HCL 50 MG TABLET (FP) PO SCH (22:15)
[2017-01-10] MEDS: INSULIN DETEMIR 100 UNITS/ML MDV SQ SCH (22:18)
[2017-01-10] MEDS: THIAMINE HCL 100 MG TABLET (FP) PO SCH (22:20)
[2017-01-11] MEDS: PENICILLIN V POTASSIUM 500 MG TABLET PO SCH ×5 (01:15→23:30)
[2017-01-11] MEDS: metFORMIN HCL 500 MG TABLET (FP) PO SCH ×2 (06:16→16:39)
[2017-01-11] MEDS: GABAPENTIN 400 MG CAPSULE (FP) PO SCH ×3 (06:16→23:30)
[2017-01-11] MEDS: DOCUSATE SODIUM 100 MG CAPSULE (FP) PO SCH ×3 (06:16→22:23)
[2017-01-11] MEDS: INSULIN (NOVOLOG) ASPART 100 UNITS/ML 10ML VIAL SQ SCH ×4 (06:17→22:21)
[2017-01-11] MEDS: PRENATAL VITAMINS W/ FOLIC ACID TABLET (FP) PO SCH (10:25)
[2017-01-11] MEDS: PANTOPRAZOLE 40 MG TABLET (FP) PO SCH (10:25)
[2017-01-11] MEDS: SERTRALINE HCL 50 MG TABLET (FP) PO SCH (10:25)
[2017-01-11] MEDS ORDERED: INSULIN (NOVOLOG) ASPART 100 UNITS/ML 10ML VIAL ONE ×3 (11:46→22:59)
[2017-01-11] MEDS: IBUPROFEN 400 MG TABLET (FP) PO PRN (18:24)
[2017-01-11] MEDS: INSULIN DETEMIR 100 UNITS/ML MDV SQ SCH (22:22)
[2017-01-11] MEDS: THIAMINE HCL 100 MG TABLET (FP) PO SCH (22:23)
[2017-01-11] MEDS: QUEtiapine FUMARATE 300 MG TABLET PO SCH (22:23)
[2017-01-11] MEDS: DIVALPROEX SODIUM 500 MG TABLET E.C. PO SCH (22:23)
[2017-01-11] MEDS: traZODone HCL 50 MG TABLET (FP) PO SCH (22:24)
[2017-01-12] MEDS: metFORMIN HCL 500 MG TABLET (FP) PO SCH ×2 (06:07→16:49)
[2017-01-12] MEDS: DOCUSATE SODIUM 100 MG CAPSULE (FP) PO SCH ×3 (06:07→22:20)
[2017-01-12] MEDS: PENICILLIN V POTASSIUM 500 MG TABLET PO SCH ×3 (06:07→18:07)
[2017-01-12] MEDS: GABAPENTIN 400 MG CAPSULE (FP) PO SCH ×3 (06:07→22:20)
[2017-01-12] MEDS: INSULIN (NOVOLOG) ASPART 100 UNITS/ML 10ML VIAL SQ SCH ×4 (06:07→22:18)
[2017-01-12] MEDS: PANTOPRAZOLE 40 MG TABLET (FP) PO SCH (10:48)
[2017-01-12] MEDS: SERTRALINE HCL 50 MG TABLET (FP) PO SCH (10:48)
[2017-01-12] MEDS: PRENATAL VITAMINS W/ FOLIC ACID TABLET (FP) PO SCH (10:48)
[2017-01-12] MEDS: IBUPROFEN 400 MG TABLET (FP) PO PRN (10:49)
[2017-01-12] MEDS ORDERED: INSULIN (NOVOLOG) ASPART 100 UNITS/ML 10ML VIAL ONE ×4 (12:06→22:34)
[2017-01-12] MEDS: INSULIN DETEMIR 100 UNITS/ML MDV SQ SCH (22:19)
[2017-01-12] MEDS: DIVALPROEX SODIUM 500 MG TABLET E.C. PO SCH (22:19)
[2017-01-12] MEDS: traZODone HCL 50 MG TABLET (FP) PO SCH (22:20)
[2017-01-12] MEDS: QUEtiapine FUMARATE 300 MG TABLET PO SCH (22:20)
[2017-01-12] MEDS: THIAMINE HCL 100 MG TABLET (FP) PO SCH (22:20)
[2017-01-13] MEDS: PENICILLIN V POTASSIUM 500 MG TABLET PO SCH ×3 (01:03→14:39)
[2017-01-13] MEDS: GABAPENTIN 400 MG CAPSULE (FP) PO SCH ×3 (05:41→22:12)
[2017-01-13] MEDS: DOCUSATE SODIUM 100 MG CAPSULE (FP) PO SCH ×3 (05:41→22:12)
[2017-01-13] MEDS ORDERED: INSULIN (NOVOLOG) ASPART 100 UNITS/ML 10ML VIAL ONE ×3 (06:46→22:39)
[2017-01-13] MEDS: INSULIN (NOVOLOG) ASPART 100 UNITS/ML 10ML VIAL SQ SCH ×4 (06:47→22:09)
[2017-01-13] MEDS: metFORMIN HCL 500 MG TABLET (FP) PO SCH ×2 (06:47→16:57)
[2017-01-13] MEDS: IBUPROFEN 400 MG TABLET (FP) PO PRN (10:55)
[2017-01-13] MEDS: SERTRALINE HCL 50 MG TABLET (FP) PO SCH (10:56)
[2017-01-13] MEDS: PANTOPRAZOLE 40 MG TABLET (FP) PO SCH (10:56)
[2017-01-13] MEDS: PRENATAL VITAMINS W/ FOLIC ACID TABLET (FP) PO SCH (10:56)
[2017-01-13] MEDS: INSULIN DETEMIR 100 UNITS/ML MDV SQ SCH (22:11)
[2017-01-13] MEDS: traZODone HCL 50 MG TABLET (FP) PO SCH (22:12)
[2017-01-13] MEDS: QUEtiapine FUMARATE 300 MG TABLET PO SCH (22:12)
[2017-01-13] MEDS: THIAMINE HCL 100 MG TABLET (FP) PO SCH (22:12)
[2017-01-13] MEDS: DIVALPROEX SODIUM 500 MG TABLET E.C. PO SCH (22:12)
[2017-01-14] MEDS: metFORMIN HCL 500 MG TABLET (FP) PO SCH ×2 (06:01→16:47)
[2017-01-14] MEDS: GABAPENTIN 400 MG CAPSULE (FP) PO SCH ×3 (06:01→22:14)
[2017-01-14] MEDS: DOCUSATE SODIUM 100 MG CAPSULE (FP) PO SCH ×3 (06:01→22:14)
[2017-01-14] MEDS: INSULIN (NOVOLOG) ASPART 100 UNITS/ML 10ML VIAL SQ SCH ×4 (06:02→22:14)
[2017-01-14] MEDS ORDERED: INSULIN (NOVOLOG) ASPART 100 UNITS/ML 10ML VIAL ONE ×3 (07:00→22:26)
[2017-01-14] MEDS: SERTRALINE HCL 50 MG TABLET (FP) PO SCH (10:55)
[2017-01-14] MEDS: PANTOPRAZOLE 40 MG TABLET (FP) PO SCH (10:55)
[2017-01-14] MEDS: PRENATAL VITAMINS W/ FOLIC ACID TABLET (FP) PO SCH (10:55)
[2017-01-14] MEDS: QUEtiapine FUMARATE 300 MG TABLET PO SCH (22:14)
[2017-01-14] MEDS: traZODone HCL 50 MG TABLET (FP) PO SCH (22:14)
[2017-01-14] MEDS: THIAMINE HCL 100 MG TABLET (FP) PO SCH (22:14)
[2017-01-14] MEDS: DIVALPROEX SODIUM 500 MG TABLET E.C. PO SCH (22:14)
[2017-01-14] MEDS: INSULIN DETEMIR 100 UNITS/ML MDV SQ SCH (22:15)
[2017-01-15] MEDS: metFORMIN HCL 500 MG TABLET (FP) PO SCH ×2 (06:03→16:46)
[2017-01-15] MEDS: DOCUSATE SODIUM 100 MG CAPSULE (FP) PO SCH ×3 (06:03→22:02)
[2017-01-15] MEDS: GABAPENTIN 400 MG CAPSULE (FP) PO SCH ×3 (06:03→22:02)
[2017-01-15] MEDS: INSULIN (NOVOLOG) ASPART 100 UNITS/ML 10ML VIAL SQ SCH ×4 (06:03→22:00)
[2017-01-15] MEDS ORDERED: INSULIN (NOVOLOG) ASPART 100 UNITS/ML 10ML VIAL ONE ×4 (06:55→22:06)
[2017-01-15] MEDS: PRENATAL VITAMINS W/ FOLIC ACID TABLET (FP) PO SCH (10:51)
[2017-01-15] MEDS: SERTRALINE HCL 50 MG TABLET (FP) PO SCH (10:51)
[2017-01-15] MEDS: PANTOPRAZOLE 40 MG TABLET (FP) PO SCH (10:51)
[2017-01-15] MEDS: IBUPROFEN 400 MG TABLET (FP) PO PRN (10:51)
[2017-01-15] MEDS: DIVALPROEX SODIUM 500 MG TABLET E.C. PO SCH (22:02)
[2017-01-15] MEDS: THIAMINE HCL 100 MG TABLET (FP) PO SCH (22:02)
[2017-01-15] MEDS: INSULIN DETEMIR 100 UNITS/ML MDV SQ SCH (22:02)
[2017-01-15] MEDS: traZODone HCL 50 MG TABLET (FP) PO SCH (22:02)
[2017-01-15] MEDS: QUEtiapine FUMARATE 300 MG TABLET PO SCH (22:02)
[2017-01-16] MEDS: INSULIN (NOVOLOG) ASPART 100 UNITS/ML 10ML VIAL SQ SCH ×4 (06:02→22:17)
[2017-01-16] MEDS: DOCUSATE SODIUM 100 MG CAPSULE (FP) PO SCH ×3 (06:02→22:15)
[2017-01-16] MEDS: metFORMIN HCL 500 MG TABLET (FP) PO SCH ×2 (06:02→16:43)
[2017-01-16] MEDS: GABAPENTIN 400 MG CAPSULE (FP) PO SCH ×3 (06:02→22:14)
[2017-01-16] MEDS ORDERED: INSULIN (NOVOLOG) ASPART 100 UNITS/ML 10ML VIAL ONE ×3 (06:46→18:37)
[2017-01-16] MEDS: IBUPROFEN 400 MG TABLET (FP) PO PRN (10:51)
[2017-01-16] MEDS: PANTOPRAZOLE 40 MG TABLET (FP) PO SCH (10:51)
[2017-01-16] MEDS: PRENATAL VITAMINS W/ FOLIC ACID TABLET (FP) PO SCH (10:51)
[2017-01-16] MEDS: SERTRALINE HCL 50 MG TABLET (FP) PO SCH (10:51)
[2017-01-16] MEDS: traZODone HCL 50 MG TABLET (FP) PO SCH (22:14)
[2017-01-16] MEDS: QUEtiapine FUMARATE 300 MG TABLET PO SCH (22:14)
[2017-01-16] MEDS: THIAMINE HCL 100 MG TABLET (FP) PO SCH (22:15)
[2017-01-16] MEDS: DIVALPROEX SODIUM 500 MG TABLET E.C. PO SCH (22:15)
[2017-01-16] MEDS: INSULIN DETEMIR 100 UNITS/ML MDV SQ SCH (22:16)
[2017-01-17] MEDS: GABAPENTIN 400 MG CAPSULE (FP) PO SCH ×3 (05:32→21:38)
[2017-01-17] MEDS: DOCUSATE SODIUM 100 MG CAPSULE (FP) PO SCH ×3 (05:32→21:38)
[2017-01-17] MEDS ORDERED: INSULIN (NOVOLOG) ASPART 100 UNITS/ML 10ML VIAL ONE ×4 (06:07→22:26)
[2017-01-17] MEDS: INSULIN (NOVOLOG) ASPART 100 UNITS/ML 10ML VIAL SQ SCH ×4 (06:43→21:36)
[2017-01-17] MEDS: metFORMIN HCL 500 MG TABLET (FP) PO SCH ×2 (06:43→16:48)
[2017-01-17] MEDS: PANTOPRAZOLE 40 MG TABLET (FP) PO SCH (10:33)
[2017-01-17] MEDS: SERTRALINE HCL 50 MG TABLET (FP) PO SCH (10:33)
[2017-01-17] MEDS: PRENATAL VITAMINS W/ FOLIC ACID TABLET (FP) PO SCH (10:34)
[2017-01-17] MEDS: IBUPROFEN 400 MG TABLET (FP) PO PRN (10:34)
[2017-01-17] MEDS ORDERED: HYDROCHLOROTHIAZIDE 25 MG TABLET (FP) PO ONE (14:00)
[2017-01-17] MEDS: INSULIN DETEMIR 100 UNITS/ML MDV SQ SCH (21:37)
[2017-01-17] MEDS: THIAMINE HCL 100 MG TABLET (FP) PO SCH (21:37)
[2017-01-17] MEDS: DIVALPROEX SODIUM 500 MG TABLET E.C. PO SCH (21:37)
[2017-01-17] MEDS: QUEtiapine FUMARATE 300 MG TABLET PO SCH (21:38)
[2017-01-17] MEDS: traZODone HCL 50 MG TABLET (FP) PO SCH (21:38)
[2017-01-18] MEDS: GABAPENTIN 400 MG CAPSULE (FP) PO SCH ×3 (06:10→22:05)
[2017-01-18] MEDS: INSULIN (NOVOLOG) ASPART 100 UNITS/ML 10ML VIAL SQ SCH ×4 (06:10→22:10)
[2017-01-18] MEDS: metFORMIN HCL 500 MG TABLET (FP) PO SCH ×2 (06:10→16:47)
[2017-01-18] MEDS: DOCUSATE SODIUM 100 MG CAPSULE (FP) PO SCH ×3 (06:11→22:06)
[2017-01-18] MEDS ORDERED: INSULIN (NOVOLOG) ASPART 100 UNITS/ML 10ML VIAL ONE ×4 (06:48→16:49)
[2017-01-18] MEDS: PRENATAL VITAMINS W/ FOLIC ACID TABLET (FP) PO SCH (10:18)
[2017-01-18] MEDS: SERTRALINE HCL 50 MG TABLET (FP) PO SCH (10:18)
[2017-01-18] MEDS: HYDROCHLOROTHIAZIDE 25 MG TABLET (FP) PO SCH (10:18)
[2017-01-18] MEDS: PANTOPRAZOLE 40 MG TABLET (FP) PO SCH (10:18)
[2017-01-18] MEDS ORDERED: INSULIN (NOVOLOG) ASPART 100 UNITS/ML 10ML VIAL SQ ONE (10:43)
--- NOTE | 2017-01-18 10:43 | PN ---
[facility] Progress Note Note: BGM 403 NOVOLOG 12 UNIT SQ NOW,BGM MONITORING
[2017-01-18] MEDS: DIVALPROEX SODIUM 500 MG TABLET E.C. PO SCH (22:05)
[2017-01-18] MEDS: QUEtiapine FUMARATE 300 MG TABLET PO SCH (22:06)
[2017-01-18] MEDS: traZODone HCL 50 MG TABLET (FP) PO SCH (22:06)
[2017-01-18] MEDS: THIAMINE HCL 100 MG TABLET (FP) PO SCH (22:10)
[2017-01-18] MEDS: INSULIN DETEMIR 100 UNITS/ML MDV SQ SCH (22:11)
[2017-01-18] MEDS ORDERED: INSULIN DETEMIR 100 UNITS/ML MDV SQ ONE (22:45)
[2017-01-19] MEDS: GABAPENTIN 400 MG CAPSULE (FP) PO SCH ×3 (06:14→22:02)
[2017-01-19] MEDS: INSULIN (NOVOLOG) ASPART 100 UNITS/ML 10ML VIAL SQ SCH ×4 (06:14→22:00)
[2017-01-19] MEDS: DOCUSATE SODIUM 100 MG CAPSULE (FP) PO SCH ×3 (06:14→22:02)
[2017-01-19] MEDS: metFORMIN HCL 500 MG TABLET (FP) PO SCH ×2 (06:14→16:51)
[2017-01-19] MEDS ORDERED: INSULIN (NOVOLOG) ASPART 100 UNITS/ML 10ML VIAL ONE ×3 (06:48→17:01)
[2017-01-19] MEDS: PANTOPRAZOLE 40 MG TABLET (FP) PO SCH (10:41)
[2017-01-19] MEDS: HYDROCHLOROTHIAZIDE 25 MG TABLET (FP) PO SCH (10:41)
[2017-01-19] MEDS: SERTRALINE HCL 50 MG TABLET (FP) PO SCH (10:41)
[2017-01-19] MEDS: PRENATAL VITAMINS W/ FOLIC ACID TABLET (FP) PO SCH (10:41)
[2017-01-19] MEDS: THIAMINE HCL 100 MG TABLET (FP) PO SCH (22:00)
[2017-01-19] MEDS: INSULIN DETEMIR 100 UNITS/ML MDV SQ SCH (22:00)
[2017-01-19] MEDS: DIVALPROEX SODIUM 500 MG TABLET E.C. PO SCH (22:01)
[2017-01-19] MEDS: traZODone HCL 50 MG TABLET (FP) PO SCH (22:01)
[2017-01-19] MEDS: QUEtiapine FUMARATE 300 MG TABLET PO SCH (22:01)
[2017-01-20] MEDS: DOCUSATE SODIUM 100 MG CAPSULE (FP) PO SCH ×3 (06:34→22:06)
[2017-01-20] MEDS: metFORMIN HCL 500 MG TABLET (FP) PO SCH ×2 (06:34→16:37)
[2017-01-20] MEDS: GABAPENTIN 400 MG CAPSULE (FP) PO SCH ×3 (06:34→22:06)
[2017-01-20] MEDS: INSULIN (NOVOLOG) ASPART 100 UNITS/ML 10ML VIAL SQ SCH ×4 (06:35→22:07)
[2017-01-20] MEDS ORDERED: INSULIN (NOVOLOG) ASPART 100 UNITS/ML 10ML VIAL ONE ×3 (06:51→16:37)
[2017-01-20] MEDS: PANTOPRAZOLE 40 MG TABLET (FP) PO SCH (10:59)
[2017-01-20] MEDS: SERTRALINE HCL 50 MG TABLET (FP) PO SCH (11:00)
[2017-01-20] MEDS: HYDROCHLOROTHIAZIDE 25 MG TABLET (FP) PO SCH (11:00)
[2017-01-20] MEDS: PRENATAL VITAMINS W/ FOLIC ACID TABLET (FP) PO SCH (11:00)
[2017-01-20] MEDS: DIVALPROEX SODIUM 500 MG TABLET E.C. PO SCH (22:05)
[2017-01-20] MEDS: QUEtiapine FUMARATE 300 MG TABLET PO SCH (22:06)
[2017-01-20] MEDS: traZODone HCL 50 MG TABLET (FP) PO SCH (22:06)
[2017-01-20] MEDS: THIAMINE HCL 100 MG TABLET (FP) PO SCH (22:06)
[2017-01-20] MEDS: INSULIN DETEMIR 100 UNITS/ML MDV SQ SCH (22:07)
[2017-01-21] MEDS: metFORMIN HCL 500 MG TABLET (FP) PO SCH ×2 (06:03→17:15)
[2017-01-21] MEDS: GABAPENTIN 400 MG CAPSULE (FP) PO SCH ×3 (06:03→22:02)
[2017-01-21] MEDS: DOCUSATE SODIUM 100 MG CAPSULE (FP) PO SCH ×3 (06:03→22:01)
[2017-01-21] MEDS: INSULIN (NOVOLOG) ASPART 100 UNITS/ML 10ML VIAL SQ SCH ×4 (06:05→22:04)
[2017-01-21] MEDS ORDERED: INSULIN (NOVOLOG) ASPART 100 UNITS/ML 10ML VIAL ONE ×4 (06:26→20:58)
[2017-01-21] MEDS: PANTOPRAZOLE 40 MG TABLET (FP) PO SCH (10:42)
[2017-01-21] MEDS: PRENATAL VITAMINS W/ FOLIC ACID TABLET (FP) PO SCH (10:42)
[2017-01-21] MEDS: HYDROCHLOROTHIAZIDE 25 MG TABLET (FP) PO SCH (10:43)
[2017-01-21] MEDS: SERTRALINE HCL 50 MG TABLET (FP) PO SCH (10:43)
--- NOTE | 2017-01-21 13:53 | PN ---
Psychiatric Progress Note Vital Signs: Vital Signs Period Temp Pulse Resp BP Sys/Moreno Pulse Ox Last 24 Hr 97.8 F 82 18-18 113/87 Date of Session: 01/21/17 Chief Complaint:: progress update HPI: Patient is addressing alcohol dependence, cocaine abuse comorbid Schizoaffective disorder. ROS: WNL Current Medications: Active Medications Generic Name Dose Route Start Last Admin Trade Name Freq PRN Reason Stop Dose Admin Acetaminophen 650 mg 12/27/16 16:09 Tylenol - PO Q4H PRN PAIN Al Hydroxide/Mg Hydroxide 30 ml 12/27/16 16:09 Mylanta Oral Suspension - PO Q6H PRN DYSPEPSIA Cyclobenzaprine HCl 10 mg 01/02/17 12:01 01/10/17 10:41 Flexeril - PO 10 mg TID PRN Administration MUSCLE SPASMS Diphenhydramine HCl 50 mg 12/27/16 16:09 Benadryl - PO HSMR1 PRN INSOMNIA Divalproex Sodium 1,000 mg 12/27/16 22:00 01/20/17 22:05 Depakote - PO 1,000 mg HS JEFE Administration Docusate Sodium 100 mg 12/27/16 22:00 01/21/17 06:03 Colace - PO 100 mg TID JEFE Administration Eucalyptus/Menthol/Phenol/Sorbitol 1 each 12/27/16 16:09 Cepastat Lozenge - MM Q4H PRN SORE THROAT Gabapentin 800 mg 12/27/16 22:00 01/21/17 06:03 Neurontin - PO 800 mg TID JEFE Administration Guaifenesin 10 ml 12/27/16 16:09 Robitussin Dm - PO Q6H PRN COUGH Hydrochlorothiazide 25 mg 01/18/17 10:00 01/21/17 10:43 Hctz - PO 25 mg DAILY JEFE Administration Hydroxyzine Pamoate 50 mg 12/27/16 16:09 Vistaril - PO Q4H PRN AGITATION Ibuprofen 800 mg 01/06/17 10:53 01/17/17 10:34 Motrin - PO 800 mg Q8H PRN Administration FEVER Insulin Aspart 0 units 01/08/17 16:30 01/21/17 11:53 Novolog Vial SQ 12 units ACHS JEFE Administration Protocol Insulin Detemir 80 units 12/27/16 22:00 01/20/17 22:07 Levemir Vial SQ 80 units HS JEFE Administration Loperamide HCl 4 mg 12/27/16 16:09 Imodium - PO Q6H PRN DIARRHEA Magnesium Citrate 300 ml 12/27/16 16:09 Citroma - PO Q48H PRN CONSTIPATION Magnesium Hydroxide 30 ml 12/27/16 16:09 Milk Of Magnesia - PO DAILY PRN CONSTIPATION Metformin HCl 1,000 mg 12/27/16 16:30 01/21/17 06:03 Glucophage - PO 1,000 mg BIDAC JEFE Administration Pantoprazole Sodium 40 mg 12/28/16 10:00 01/21/17 10:42 Protonix - PO 40 mg DAILY JEFE Administration Multivit/Folic Acid/Iron 1 tab 12/28/16 10:00 01/21/17 10:42 Vitamins (Sjr) - PO 1 tab DAILY JEFE Administration Pseudoephedrine/Triprolidine 1 combo 12/27/16 16:09 Actifed - PO TID PRN NASAL CONGESTION Quetiapine Fumarate 300 mg 12/27/16 22:00 01/20/17 22:06 Seroquel - PO 300 mg HS JEFE Administration Sertraline HCl 150 mg 12/28/16 10:00 01/21/17 10:43 Zoloft - PO 150 mg DAILY JEFE Administration Thiamine HCl 100 mg 12/27/16 22:00 01/20/17 22:06 Vitamin B1 - PO 100 mg HS JEFE Administration Trazodone HCl 150 mg 12/27/16 22:29 01/20/17 22:06 Desyrel - PO 150 mg HS JEFE Administration Current Side Effect: No Lab tests ordered: Yes Lab tests reviewed: Yes Provider note:: Patient mainly spoke today about issues related to his aftercare plans, feeling anxiety predominated today in the session, processed this with the patient, ways to reduce anxiety discussed with the patient, blood result noted with the patient. Reviewed his current medications, patient reported no side-effects from the medications, will continue the same management and monitor progress. Total face to face time:: 35 Mental Status Exam - Mental Status Exam Alert and Oriented to: Time, Place, Person Cognitive Function: Good Patient Appearance: Well Groomed Mood: Anxious Affect: Appropriate, Mood Congruent Patient Behavior: Appropriate, Cooperative Speech Pattern: Clear, Appropriate Voice Loudness: Normal Thought Process: Intact, Goal Oriented Thought Disorder: Not Present Hallucinations: Denies Suicidal Ideation: Denies Homicidal Ideation: Denies Insight/Judgement: Fair Sleep: Fair Appetite: Fair Muscle strength/Tone: Normal Gait/Station: Normal Psychiatric Treatment Plan - Problem List (1) Cocaine abuse Current Visit: Yes (2) DM Diabetes mellitus type 2 Current Visit: Yes (3) Gastroesophageal reflux disease Current Visit: Yes (4) Schizoaffective disorder Current Visit: No Comment: Endorsed by the patient in this interview. (5) Alcohol dependence Current Visit: Yes
[2017-01-21] MEDS: DIVALPROEX SODIUM 500 MG TABLET E.C. PO SCH (22:01)
[2017-01-21] MEDS: QUEtiapine FUMARATE 300 MG TABLET PO SCH (22:02)
[2017-01-21] MEDS: INSULIN DETEMIR 100 UNITS/ML MDV SQ SCH (22:02)
[2017-01-21] MEDS: traZODone HCL 50 MG TABLET (FP) PO SCH (22:02)
[2017-01-21] MEDS: THIAMINE HCL 100 MG TABLET (FP) PO SCH (22:02)
[2017-01-22] MEDS: INSULIN (NOVOLOG) ASPART 100 UNITS/ML 10ML VIAL SQ SCH ×4 (06:10→21:12)
[2017-01-22] MEDS: metFORMIN HCL 500 MG TABLET (FP) PO SCH ×2 (06:10→16:41)
[2017-01-22] MEDS: GABAPENTIN 400 MG CAPSULE (FP) PO SCH ×3 (06:10→21:11)
[2017-01-22] MEDS: DOCUSATE SODIUM 100 MG CAPSULE (FP) PO SCH ×3 (06:10→21:11)
[2017-01-22] MEDS ORDERED: INSULIN (NOVOLOG) ASPART 100 UNITS/ML 10ML VIAL ONE ×4 (06:38→20:28)
[2017-01-22] MEDS: HYDROCHLOROTHIAZIDE 25 MG TABLET (FP) PO SCH (10:36)
[2017-01-22] MEDS: SERTRALINE HCL 50 MG TABLET (FP) PO SCH (10:36)
[2017-01-22] MEDS: PRENATAL VITAMINS W/ FOLIC ACID TABLET (FP) PO SCH (10:36)
[2017-01-22] MEDS: PANTOPRAZOLE 40 MG TABLET (FP) PO SCH (10:37)
[2017-01-22] MEDS: QUEtiapine FUMARATE 300 MG TABLET PO SCH (21:11)
[2017-01-22] MEDS: INSULIN DETEMIR 100 UNITS/ML MDV SQ SCH (21:11)
[2017-01-22] MEDS: THIAMINE HCL 100 MG TABLET (FP) PO SCH (21:11)
[2017-01-22] MEDS: traZODone HCL 50 MG TABLET (FP) PO SCH (21:11)
[2017-01-22] MEDS: DIVALPROEX SODIUM 500 MG TABLET E.C. PO SCH (21:11)
[2017-01-23] MEDS: metFORMIN HCL 500 MG TABLET (FP) PO SCH (06:23)
[2017-01-23] MEDS: GABAPENTIN 400 MG CAPSULE (FP) PO SCH (06:23)
[2017-01-23] MEDS: DOCUSATE SODIUM 100 MG CAPSULE (FP) PO SCH (06:23)
[2017-01-23] MEDS: INSULIN (NOVOLOG) ASPART 100 UNITS/ML 10ML VIAL SQ SCH (06:23)
[2017-01-23 06:27] VITALS: BP 143/84; PULSE 87; TEMP 98.4
[2017-01-23] MEDS ORDERED: INSULIN (NOVOLOG) ASPART 100 UNITS/ML 10ML VIAL ONE (06:47)
--- NOTE | 2017-01-23 09:05 | PN ---
Psychiatric Progress Note Vital Signs: Vital Signs Period Temp Pulse Resp BP Sys/Moreno Pulse Ox Last 24 Hr 98.4 F 87-90 18-18 133-143/84-87 Date of Session: 01/23/17 Chief Complaint:: discharge visit HPI: Patient is addressing alcohol dependence, cocaine abuse comorbid Schizoaffective disorder. ROS: GERD, DM medically managed Current Medications: Active Medications Generic Name Dose Route Start Last Admin Trade Name Freq PRN Reason Stop Dose Admin Acetaminophen 650 mg 12/27/16 16:09 Tylenol - PO Q4H PRN PAIN Al Hydroxide/Mg Hydroxide 30 ml 12/27/16 16:09 Mylanta Oral Suspension - PO Q6H PRN DYSPEPSIA Cyclobenzaprine HCl 10 mg 01/02/17 12:01 01/10/17 10:41 Flexeril - PO 10 mg TID PRN Administration MUSCLE SPASMS Diphenhydramine HCl 50 mg 12/27/16 16:09 Benadryl - PO HSMR1 PRN INSOMNIA Divalproex Sodium 1,000 mg 12/27/16 22:00 01/22/17 21:11 Depakote - PO 1,000 mg HS JEFE Administration Docusate Sodium 100 mg 12/27/16 22:00 01/23/17 06:23 Colace - PO 100 mg TID JEFE Administration Eucalyptus/Menthol/Phenol/Sorbitol 1 each 12/27/16 16:09 Cepastat Lozenge - MM Q4H PRN SORE THROAT Gabapentin 800 mg 12/27/16 22:00 01/23/17 06:23 Neurontin - PO 800 mg TID JEFE Administration Guaifenesin 10 ml 12/27/16 16:09 Robitussin Dm - PO Q6H PRN COUGH Hydrochlorothiazide 25 mg 01/18/17 10:00 01/22/17 10:36 Hctz - PO 25 mg DAILY JEFE Administration Hydroxyzine Pamoate 50 mg 12/27/16 16:09 Vistaril - PO Q4H PRN AGITATION Ibuprofen 800 mg 01/06/17 10:53 01/17/17 10:34 Motrin - PO 800 mg Q8H PRN Administration FEVER Insulin Aspart 0 units 01/08/17 16:30 01/23/17 06:23 Novolog Vial SQ 8 units ACHS JEFE Administration Protocol Insulin Detemir 80 units 12/27/16 22:00 01/22/17 21:11 Levemir Vial SQ 80 units HS JEFE Administration Loperamide HCl 4 mg 12/27/16 16:09 Imodium - PO Q6H PRN DIARRHEA Magnesium Citrate 300 ml 12/27/16 16:09 Citroma - PO Q48H PRN CONSTIPATION Magnesium Hydroxide 30 ml 12/27/16 16:09 Milk Of Magnesia - PO DAILY PRN CONSTIPATION Metformin HCl 1,000 mg 12/27/16 16:30 01/23/17 06:23 Glucophage - PO 1,000 mg BIDAC JEFE Administration Pantoprazole Sodium 40 mg 12/28/16 10:00 01/22/17 10:37 Protonix - PO 40 mg DAILY JEFE Administration Multivit/Folic Acid/Iron 1 tab 12/28/16 10:00 01/22/17 10:36 Vitamins (Sjr) - PO 1 tab DAILY JEFE Administration Pseudoephedrine/Triprolidine 1 combo 12/27/16 16:09 Actifed - PO TID PRN NASAL CONGESTION Quetiapine Fumarate 300 mg 12/27/16 22:00 01/22/17 21:11 Seroquel - PO 300 mg HS JEFE Administration Sertraline HCl 150 mg 12/28/16 10:00 01/22/17 10:36 Zoloft - PO 150 mg DAILY JEFE Administration Thiamine HCl 100 mg 12/27/16 22:00 01/22/17 21:11 Vitamin B1 - PO 100 mg HS JEFE Administration Trazodone HCl 150 mg 12/27/16 22:29 01/22/17 21:11 Desyrel - PO 150 mg HS JEFE Administration Current Side Effect: No Lab tests ordered: No Lab tests reviewed: Yes Provider note:: Patient has completed today his treatment and met his goals, will continue to address his issues at [facility] outpatient treatment program, patient gained insight into his addiction and motivated to continue maintain abstinence. He understands implications/consequences his addiction on his physical and mental health. Medications well tolerated, scripts provided for 30 days, patient is stable for discharge today. Total face to face time:: 20 Mental Status Exam - Mental Status Exam Alert and Oriented to: Time, Place, Person Cognitive Function: Good Patient Appearance: Well Groomed Mood: Hopeful Affect: Appropriate, Mood Congruent Patient Behavior: Appropriate, Cooperative Speech Pattern: Clear, Appropriate Voice Loudness: Normal Thought Process: Intact, Goal Oriented Thought Disorder: Not Present Hallucinations: Denies Suicidal Ideation: Denies Homicidal Ideation: Denies Insight/Judgement: Fair Sleep: Fair Appetite: Fair Muscle strength/Tone: Normal Gait/Station: Normal Psychiatric Treatment Plan - Problem List (4) Schizoaffective disorder Comment: Endorsed by the patient in this interview.
[2017-01-23] MEDS: PRENATAL VITAMINS W/ FOLIC ACID TABLET (FP) PO SCH (09:12)
[2017-01-23] MEDS: HYDROCHLOROTHIAZIDE 25 MG TABLET (FP) PO SCH (09:12)
[2017-01-23] MEDS: SERTRALINE HCL 50 MG TABLET (FP) PO SCH (09:12)
[2017-01-23] MEDS: PANTOPRAZOLE 40 MG TABLET (FP) PO SCH (09:12)
== END 2017-01-23 09:15 | disposition home or self-care (01) | DRG 895 ==
LOC: YASAS 12:48 → Y5N 17:34
PROVIDERS: ADMIT Psychiatry & Neurology Psychiatry; ATTEND Psychiatry & Neurology Psychiatry
PROC: HZ42ZZZ Group Counseling for Substance Abuse Treatment, Cognitive-Behavioral (ICD-10-PCS; principal; 2017-01-23)
DX: F10.20 Alcohol dependence, uncomplicated (principal); F14.10 Cocaine abuse, uncomplicated; E11.9 Type 2 diabetes mellitus without complications; Z79.84 Long term (current) use of oral hypoglycemic drugs; K21.9 Gastro-esophageal reflux disease without esophagitis
CPT/HCPCS: 36415; 80053; 80164; 81003; 85027; 86593; 93005; 93010

== ENCOUNTER 2017-06-05 15:06 | Inpatient (IN) | payer OTHER ==
[2017-06-05 17:08] VITALS: BMI 29.5
[2017-06-05] MEDS ORDERED: MAG HYDROX/AL HYDROX/SIMETH 30 ML UNIT-DOSE CUP PO PRN (19:27)
[2017-06-05] MEDS ORDERED: LOPERAMIDE HCL 2 MG CAPSULE PO PRN (19:27)
[2017-06-05] MEDS ORDERED: guaiFENesin/D-METHORPHAN HB 10 ML UNIT-DOSE CUPS PO PRN (19:27)
[2017-06-05] MEDS ORDERED: MAGNESIUM CITRATE 300 ML BOTTLE PO PRN (19:27)
[2017-06-05] MEDS ORDERED: MAGNESIUM HYDROX 2400MG/30ML ORAL SUSPENSION 30 ML CUP PO PRN (19:27)
[2017-06-05] MEDS ORDERED: P-EPHED 60MG/TRIPROLIDI 2.5MG TABLET PO PRN (19:27)
[2017-06-05] MEDS ORDERED: MENTHOL/PHENOL 1 EACH UD MM PRN (19:27)
--- NOTE | 2017-06-05 19:27 | HP ---
Admission [facility] Chief Complaint: I WANT TO GO TO REHAB Allergies/Adverse Reactions: Allergies Allergy/AdvReac Type Severity Reaction Status Date / Time Fish Containing Products Allergy Severe Hives Verified 06/05/17 17:32 shellfish derived Allergy Severe Hives Verified 06/05/17 17:32 No Known Drug Allergies Allergy Verified 06/05/17 17:32 tomato AdvReac Nausea Verified 06/05/17 17:32 History of Present Illness: 56 YEARS OLD MALE WITH LONG HISTORY OF COCAINE DEPENDENCE HAS DIABETES, NEUROPATHY GERD HYPERLIPIDEMIA AND BIPOLAR II IS ADMITTED TO DETOX Exam Limitations: No Limitations - Ebola screening Have you traveled outside of the country in the last 21 days: No Have you had contact with anyone from an Ebola affected area: No Have you been sick,other than usual withdrawal symptoms: No Do you have a fever: No - Review of Systems Constitutional: Weight Stable EENT: reports: No Symptoms Reported Respiratory: reports: No Symptoms reported Cardiac: reports: No Symptoms Reported GI: reports: Indigestion : reports: No Symptoms Reported Musculoskeletal: reports: No Symptoms Reported Integumentary: reports: No Symptoms Reported Neuro: reports: No Symptoms reported Endocrine: reports: No Symptoms Reported Hematology: reports: No Symptoms Reported Psychiatric: reports: Judgement Intact, Mood/Affect Appropiate, Orientated x3 Other Systems: Reviewed and Negative Patient History - Patient Medical History Hx Anemia: No Hx Asthma: No Hx Chronic Obstructive Pulmonary Disease (COPD): No Hx Cancer: No Hx Cardiac Disorders: No Hx Congestive Heart Failure: No Hx Hypertension: No Hx Hypercholesterolemia: Yes Hx Pacemaker: No HX Cerebrovascular Accident: No Hx Seizures: No Hx Dementia: No Hx Diabetes: Yes Hx Gastrointestinal Disorders: Yes Hx Liver Disease: No Hx Genitourinary Disorders: No Hx Sexually Transmitted Disorders: No Hx Renal Disease (ESRD): No Hx Thyroid Disease: No Hx Human Immunodeficiency Virus (HIV): No (negative) Hx Hepatitis C: No (negative) Hx Depression: No Hx Suicide Attempt: No Hx Bipolar Disorder: Yes Hx Schizophrenia: No - Patient Surgical History Past Surgical History: Yes Hx Neurologic Surgery: No Hx Cataract Extraction: No Hx Cardiac Surgery: No Hx Lung Surgery: No Hx Breast Surgery: No Hx Breast Biopsy: No Hx Abdominal Surgery: No Hx Appendectomy: No Hx Cholecystectomy: No Hx Genitourinary Surgery: No Hx Orthopedic Surgery: Yes (L knee in 2004) Anesthesia Reaction: No - PPD History Previous Implant?: Yes Documented Results: Negative w/proof Implanted On Prior [facility] Admission?: Yes Date: 12/29/16 Results: 0 mm PPD to be Administered?: No - Smoking Cessation Smoking history: Never smoked Have you smoked in the past 12 months: No Aproximately how many cigarettes per day: 0 Cigars Per Day: 0 Hx Chewing Tobacco Use: No Initiated information on smoking cessation: No - Substance & Tx. History Hx Alcohol Use: No Hx Substance Use: Yes Substance Use Type: Cocaine Hx Substance Use Treatment: Yes (12/2016 [facility] - Substances Abused Cocaine Route: Inhalation Frequency: 1-3 times last 30 days Amount used: $500 Age of first use: 17 Date of Last Use: 06/01/17 Family Disease History - Family Disease History Family Disease History: Diabetes: Brother (HTN), Other: Father (alcohol dependence) Admission Physical Exam S - Vital Signs Vital Signs: Vital Signs - 24 hr 06/05/17 17:05 Temperature 98.1 F Pulse Rate 95 H Respiratory 18 Rate Blood Pressure 138/80 - Physical General Appearance: Yes: No Apparent Distress, Appropriately Dressed, Obese HEENTM: Yes: Hearing grossly Normal, Normal ENT Inspection, Normocephalic, Normal Voice Respiratory: Yes: Chest Non-Tender, Lungs Clear, Normal Breath Sounds, No Respiratory Distress, No Accessory Muscle Use Neck: Yes: Supple, Trachea in good position Breast: Yes: Breasts Symetrical Cardiology: Yes: Regular Rhythm, S1, S2, Tachycardia (COCAINE) Abdominal: Yes: Normal Bowel Sounds, Non Tender, Soft Genitourinary: Yes: Within Normal Limits Back: Yes: Normal Inspection Musculoskeletal: Yes: full range of Motion, Gait Steady Extremities: Yes: Normal Inspection, Normal Range of Motion, Non-Tender Neurological: Yes: Fully Oriented, Alert, Motor Strength 5/5, Normal Mood/Affect , Normal Response Integumentary: Yes: Warm Lymphatic: Yes: Within Normal Limits - Diagnostic (1) Cocaine dependence, uncomplicated Current Visit: Yes Status: Chronic (2) Bipolar II disorder Current Visit: Yes Status: Suspected (3) DM Diabetes mellitus type 2 Current Visit: Yes Status: Chronic (4) Gastroesophageal reflux disease Current Visit: Yes Status: Chronic (5) Hyperlipidemia Current Visit: Yes Status: Chronic Qualifiers: Hyperlipidemia type: pure hypercholesterolemia Qualified Code(s): E78.00 - Pure hypercholesterolemia, unspecified; E78.0 - Pure hypercholesterolemia (6) Neuropathy Current Visit: Yes Status: Chronic Cleared for Admission [facility] - Detox or Rehab [facility] Level of Care: Observation Bed Detox Regimen/Protocol: Not Applicable Claeared for Rehab Admission: Yes [facility] Breath Alcohol Content Breath Alcohol Content: 0 Urine Drug Screen - Results Drug Screen Negative: No Urine Drug Screen Results: GALINA-Cocaine, TCA-Tricyclic Antidepress
[2017-06-05] MEDS ORDERED: INSULIN NPH HUMAN ISOPHANE SQ SCH (19:45)
[2017-06-05] MEDS: INSULIN DETEMIR 100 UNITS/ML MDV SQ SCH ×2 (22:18→22:21)
[2017-06-05] MEDS: GABAPENTIN 400 MG CAPSULE (FP) PO SCH (22:19)
[2017-06-05] MEDS: ATORVASTATIN CA 40 MG TABLET (FP) PO SCH (22:19)
[2017-06-05] MEDS: NALTREXONE HCL 50 MG TABLET PO SCH (22:19)
[2017-06-05] MEDS: THIAMINE HCL 100 MG TABLET (FP) PO SCH (22:19)
[2017-06-05 22:55] LABS: URINE APPEARANCE SLCLOUDY; URINE BILIRUBIN NEGATIVE (NEGATIVE); URINE BLOOD NEGATIVE (NEGATIVE); URINE COLOR DKYELLOW; URINE GLUCOSE (UA) 3+ (NEGATIVE); URINE KETONE NEGATIVE (NEGATIVE); URINE NITRITE NEGATIVE (NEGATIVE); URINE PROTEIN NEGATIVE (NEGATIVE)
[2017-06-06] MEDS: GABAPENTIN 400 MG CAPSULE (FP) PO SCH ×3 (06:33→21:47)
--- NOTE | 2017-06-06 06:42 | HP ---
Psychiatrist Admission - Data Date of interview: 06/06/17 Admission source: Self-referred Identifying data: This is one of the multiple [facility] admissions for this 56 years old male, father of 24 years old daughter, unemployed on SSD, domiciled Medical History: Significant for type 2 diabetes, GERD, LBP/sciatica, neuropathy and history of orthosurgery for injury to left knee (2004). Psychiatric History: Reports that his first psychiatric contact was in 2006 when he was admitted to [facility] for mood dysregulation and SI. He was diagnosed with Schizoaffective Disorder and treated with Seroquel. Reports multiple subsequent admissions to various institutions notably [facility], [facility] and most recently in November 2016 to [facility] for depression. He was discharged on Depakote 500 mg po BID, Seroquel 300 mg po HS, Trazadone 150 mg po HS, Abilify 10 mg po daily and Zoloft 200 mg po daily and referred to [facility] for aftercare. Told newspaper writer that he did not go to aftercare but has been getting med refills through ED. Reports good adherence to medications. Denies previous suicidal attempt. At present, reports feeling depressed and sleeping poorly unless on medication Physical/Sexual Abuse/Trauma History: Denies history of physical or sexual abuse as well as service. Receives SSD as result of on the job injury to knee (see above). Additional Comment: Denies previous criminal history Vital Signs: Vital Signs - 24 hr 06/05/17 06/06/17 17:05 03:30 Temperature 98.1 F Pulse Rate 95 H Respiratory 18 18 Rate Blood Pressure 138/80 Allergies/Adverse Reactions: Allergies Allergy/AdvReac Type Severity Reaction Status Date / Time Fish Containing Products Allergy Severe Hives Verified 06/05/17 17:32 shellfish derived Allergy Severe Hives Verified 06/05/17 17:32 No Known Drug Allergies Allergy Verified 06/05/17 17:32 tomato AdvReac Nausea Verified 06/05/17 17:32 Date of last physical exam: 06/05/17 Concur with the findings of this exam: Yes - Substance Abuse/Tx History Hx Alcohol Use: Yes Hx Substance Use: Yes Substance Use Type: Alcohol (Started drinking alcohol at age 17, consumes one chelita of beer daily. Last ashley on ), Cocaine (Started using cocaine at age 17, consumes $500 1-3 times in the last 30 days. Last used on 06/01/17) Hx Substance Use Treatment: Yes (4 previous inpt detox & 7 inpt rehab @ [facility]) Mental Status Exam - Mental Status Exam Alert and Oriented to: Time, Place, Person Cognitive Function: Fair Patient Appearance: Well Groomed Mood: Depressed Affect: Appropriate Patient Behavior: Cooperative Speech Pattern: Clear, Artificially Ventilated Thought Process: Intact, Goal Oriented Thought Disorder: Not Present Suicidal Ideation: Denies Homicidal Ideation: Denies Insight/Judgement: Fair Sleep: Poorly Appetite: Good Muscle strength/Tone: Normal Gait/Station: Normal Psychiatric Findings - Problem List ([place] 1, 2,3) (1) Alcohol dependence Current Visit: No Status: Acute (2) Cocaine dependence Current Visit: Yes Status: Acute (3) Schizoaffective disorder Current Visit: No Status: Chronic Comment: Endorsed by the patient in this interview. (4) Bipolar II disorder Current Visit: Yes Status: Ruled-out (5) Substance induced mood disorder Current Visit: Yes Status: Acute (6) Substance-induced sleep disorder Current Visit: Yes Status: Acute (7) DM Diabetes mellitus type 2 Current Visit: Yes Status: Chronic (8) Gastroesophageal reflux disease Current Visit: Yes Status: Chronic (9) Hyperlipidemia Current Visit: Yes Status: Chronic Qualifiers: Hyperlipidemia type: pure hypercholesterolemia Qualified Code(s): E78.00 - Pure hypercholesterolemia, unspecified; E78.0 - Pure hypercholesterolemia (10) Neuropathy Current Visit: Yes Status: Chronic - Initial Treatment Plan Initial Treatment Plan: 1) Continue Zoloft 200 mg po daily, Seroquel 300 mg po HS, Trazadone 150 mg po HS, Abilify 10 mg po daily and Depakote 500 mg po BID. 2) Valproic Acid serum level and LFT's. 3) Monitor progress
[2017-06-06] MEDS ORDERED: metFORMIN HCL 500 MG TABLET (FP) PO SCH ×5 (07:00→16:30)
[2017-06-06 09:22] LABS: URINE LEUK ESTERASE Negative (NEGATIVE)
[2017-06-06 09:42] LABS: MCH 28.8 pg (25.7-33.7); MCHC 33.4 g/dl (32.0-35.9); MEAN CELL VOLUME 86.3 fl (80-96); MEAN PLT VOLUME 8.8 fl (7.5-11.1); PLATELET COUNT 139 K/MM3 (134-434); RDW 13.8 % (11.9-15.9); WHITE BLOOD COUNT 4.1 K/mm3 (4.0-10.0)
[2017-06-06] MEDS: PRENATAL VITAMINS W/ FOLIC ACID TABLET (FP) PO SCH (10:00)
[2017-06-06] MEDS: NALTREXONE HCL 50 MG TABLET PO SCH (10:00)
[2017-06-06 11:08] LABS: ALBUMIN 3.6 g/dl (3.4-5.0); ANION GAP 11 (8-16); CALCIUM 8.4 mg/dL (8.5-10.1); CO2 25 mmol/L (21-32); CREATININE 0.8 mg/dL (0.7-1.3); GLUCOSE,RANDOM 173 mg/dL (74-106); SGOT/AST 16 U/L (15-37); SGPT/ALT 26 U/L (12-78)
[2017-06-06 11:10] LABS: ALK PHOS 54 U/L (45-117); BILIRUBIN,TOTAL 0.6 mg/dL (0.2-1.0); TOT PROT 7.3 g/dl (6.4-8.2)
[2017-06-06] MEDS: INSULIN SLIDING SCALE (NOVOLOG) 1 VIAL SQ SCH ×2 (12:07→17:00)
[2017-06-06] MEDS ORDERED: INSULIN (NOVOLOG) ASPART 100 UNITS/ML 10ML VIAL ONE (12:07)
[2017-06-06] MEDS: SERTRALINE HCL 50 MG TABLET (FP) PO SCH (12:08)
[2017-06-06] MEDS: DIVALPROEX SODIUM 500 MG TABLET E.C. PO SCH ×2 (12:08→21:48)
[2017-06-06] MEDS: ARIPiprazole 10 MG TABLET PO SCH (12:08)
[2017-06-06] MEDS ORDERED: INSULIN DETEMIR 100 UNITS/ML MDV SQ SCH (12:30)
[2017-06-06] MEDS: metFORMIN HCL 500 MG TABLET (FP) PO SCH ×2 (14:14→16:57)
[2017-06-06] MEDS: INSULIN DETEMIR 100 UNITS/ML MDV SQ SCH ×2 (16:59→21:46)
[2017-06-06] MEDS: traZODone HCL 50 MG TABLET (FP) PO SCH (21:47)
[2017-06-06] MEDS: QUEtiapine FUMARATE 300 MG TABLET PO SCH (21:47)
[2017-06-06] MEDS: THIAMINE HCL 100 MG TABLET (FP) PO SCH (21:47)
[2017-06-06] MEDS: ATORVASTATIN CA 40 MG TABLET (FP) PO SCH (21:47)
[2017-06-07] MEDS: GABAPENTIN 400 MG CAPSULE (FP) PO SCH ×3 (06:17→21:40)
[2017-06-07] MEDS ORDERED: INSULIN NPH HUMAN ISOPHANE SQ SCH (06:45)
[2017-06-07] MEDS: INSULIN SLIDING SCALE (NOVOLOG) 1 VIAL SQ SCH ×3 (06:50→16:53)
[2017-06-07] MEDS: metFORMIN HCL 500 MG TABLET (FP) PO SCH ×2 (07:10→16:44)
[2017-06-07] MEDS: INSULIN DETEMIR 100 UNITS/ML MDV SQ SCH ×4 (07:10→22:07)
[2017-06-07] MEDS: DIVALPROEX SODIUM 500 MG TABLET E.C. PO SCH ×2 (10:17→21:40)
[2017-06-07] MEDS: ARIPiprazole 10 MG TABLET PO SCH (10:17)
[2017-06-07] MEDS: NALTREXONE HCL 50 MG TABLET PO SCH (10:17)
[2017-06-07] MEDS: PRENATAL VITAMINS W/ FOLIC ACID TABLET (FP) PO SCH (10:17)
[2017-06-07] MEDS: SERTRALINE HCL 50 MG TABLET (FP) PO SCH (10:17)
[2017-06-07] MEDS ORDERED: INSULIN (NOVOLOG) ASPART 100 UNITS/ML 10ML VIAL ONE (11:38)
--- NOTE | 2017-06-07 16:42 | EKG ---
Test Reason : Blood Pressure : / mmHG Vent. Rate : 077 BPM Atrial Rate : 077 BPM P-R Int : 164 ms QRS Dur : 100 ms QT Int : 390 ms P-R-T Axes : 047 -37 025 degrees QTc Int : 441 ms NORMAL SINUS RHYTHM LEFT AXIS DEVIATION LEFT ANTERIOR FASCICULAR BLOCK INCOMPLETE RIGHT BUNDLE BRANCH BLOCK ABNORMAL ECG WHEN COMPARED WITH ECG OF 27-DEC-2016 21:52, NO SIGNIFICANT CHANGE WAS FOUND Confirmed by HIEN HUGO MD ([id number]) on 06/07/2017 4:42:12 PM Referred By: Confirmed By:HIEN HUGO MD
[2017-06-07] MEDS: QUEtiapine FUMARATE 300 MG TABLET PO SCH (21:39)
[2017-06-07] MEDS: traZODone HCL 50 MG TABLET (FP) PO SCH (21:39)
[2017-06-07] MEDS: THIAMINE HCL 100 MG TABLET (FP) PO SCH (21:40)
[2017-06-07] MEDS: ATORVASTATIN CA 40 MG TABLET (FP) PO SCH (21:40)
[2017-06-07] MEDS ORDERED: INSULIN GLARGINE HUM REC ANLOG 80 UNIT SQ SCH (22:00)
[2017-06-08] MEDS: GABAPENTIN 400 MG CAPSULE (FP) PO SCH ×3 (05:57→21:19)
[2017-06-08] MEDS: metFORMIN HCL 500 MG TABLET (FP) PO SCH ×2 (06:47→16:54)
[2017-06-08] MEDS: INSULIN SLIDING SCALE (NOVOLOG) 1 VIAL SQ SCH ×3 (07:26→16:56)
[2017-06-08] MEDS: INSULIN DETEMIR 100 UNITS/ML MDV SQ SCH ×4 (07:26→21:20)
[2017-06-08] MEDS ORDERED: INSULIN (NOVOLOG) ASPART 100 UNITS/ML 10ML VIAL ONE ×2 (07:28→11:20)
[2017-06-08] MEDS: SERTRALINE HCL 50 MG TABLET (FP) PO SCH (09:56)
[2017-06-08] MEDS: PRENATAL VITAMINS W/ FOLIC ACID TABLET (FP) PO SCH (09:56)
[2017-06-08] MEDS: NALTREXONE HCL 50 MG TABLET PO SCH (09:57)
[2017-06-08] MEDS: ARIPiprazole 10 MG TABLET PO SCH (09:57)
[2017-06-08] MEDS: DIVALPROEX SODIUM 500 MG TABLET E.C. PO SCH ×2 (09:57→21:19)
[2017-06-08] MEDS: traZODone HCL 50 MG TABLET (FP) PO SCH (21:19)
[2017-06-08] MEDS: QUEtiapine FUMARATE 300 MG TABLET PO SCH (21:19)
[2017-06-08] MEDS: THIAMINE HCL 100 MG TABLET (FP) PO SCH (21:19)
[2017-06-08] MEDS: ATORVASTATIN CA 40 MG TABLET (FP) PO SCH (21:19)
[2017-06-09] MEDS: GABAPENTIN 400 MG CAPSULE (FP) PO SCH ×3 (06:17→21:47)
[2017-06-09] MEDS: INSULIN SLIDING SCALE (NOVOLOG) 1 VIAL SQ SCH ×3 (07:00→17:02)
[2017-06-09] MEDS: metFORMIN HCL 500 MG TABLET (FP) PO SCH ×2 (07:00→16:59)
[2017-06-09] MEDS: INSULIN DETEMIR 100 UNITS/ML MDV SQ SCH ×2 (07:44→11:36)
[2017-06-09] MEDS: SERTRALINE HCL 50 MG TABLET (FP) PO SCH (09:57)
[2017-06-09] MEDS: ARIPiprazole 10 MG TABLET PO SCH (09:57)
[2017-06-09] MEDS: NALTREXONE HCL 50 MG TABLET PO SCH (09:57)
[2017-06-09] MEDS: DIVALPROEX SODIUM 500 MG TABLET E.C. PO SCH ×2 (09:57→21:46)
[2017-06-09] MEDS: PRENATAL VITAMINS W/ FOLIC ACID TABLET (FP) PO SCH (09:57)
[2017-06-09] MEDS ORDERED: COLLOIDAL OATMEAL 1 BAR EACH TP PRN (11:30)
[2017-06-09] MEDS ORDERED: INSULIN (NOVOLOG) ASPART 100 UNITS/ML 10ML VIAL ONE (11:36)
[2017-06-09] MEDS: ACETAMINOPHEN 325 MG TABLET (FP) PO PRN (19:38)
[2017-06-09] MEDS: traZODone HCL 50 MG TABLET (FP) PO SCH (21:46)
[2017-06-09] MEDS: QUEtiapine FUMARATE 300 MG TABLET PO SCH (21:47)
[2017-06-09] MEDS: LANTUS 100 UNIT/ML PO SCH (21:53)
[2017-06-09] MEDS ORDERED: LANTUS 100 UNIT/ML PO SCH (22:00)
[2017-06-09] MEDS: ATORVASTATIN CA 40 MG TABLET (FP) PO SCH (22:22)
[2017-06-09] MEDS: THIAMINE HCL 100 MG TABLET (FP) PO SCH (22:22)
[2017-06-10] MEDS: GABAPENTIN 400 MG CAPSULE (FP) PO SCH ×3 (05:54→21:58)
[2017-06-10] MEDS: INSULIN SLIDING SCALE (NOVOLOG) 1 VIAL SQ SCH ×3 (06:57→17:11)
[2017-06-10] MEDS: metFORMIN HCL 500 MG TABLET (FP) PO SCH ×2 (07:42→17:04)
[2017-06-10] MEDS: NALTREXONE HCL 50 MG TABLET PO SCH (10:03)
[2017-06-10] MEDS: PRENATAL VITAMINS W/ FOLIC ACID TABLET (FP) PO SCH (10:03)
[2017-06-10] MEDS: SERTRALINE HCL 50 MG TABLET (FP) PO SCH (10:03)
[2017-06-10] MEDS: ARIPiprazole 10 MG TABLET PO SCH (10:04)
[2017-06-10] MEDS: DIVALPROEX SODIUM 500 MG TABLET E.C. PO SCH ×2 (10:04→21:58)
[2017-06-10] MEDS ORDERED: PT OWN MED DRAWER 7, Y5N ONE (11:52)
[2017-06-10] MEDS ORDERED: INSULIN (NOVOLOG) ASPART 100 UNITS/ML 10ML VIAL ONE ×2 (11:59→17:11)
[2017-06-10] MEDS: THIAMINE HCL 100 MG TABLET (FP) PO SCH (21:57)
[2017-06-10] MEDS: traZODone HCL 50 MG TABLET (FP) PO SCH (21:58)
[2017-06-10] MEDS: QUEtiapine FUMARATE 300 MG TABLET PO SCH (21:58)
[2017-06-10] MEDS: ATORVASTATIN CA 40 MG TABLET (FP) PO SCH (21:58)
[2017-06-10] MEDS: LANTUS 100 UNIT/ML PO SCH (22:01)
[2017-06-11] MEDS: GABAPENTIN 400 MG CAPSULE (FP) PO SCH ×3 (06:06→21:31)
[2017-06-11] MEDS: metFORMIN HCL 500 MG TABLET (FP) PO SCH ×2 (07:11→16:47)
[2017-06-11] MEDS: INSULIN SLIDING SCALE (NOVOLOG) 1 VIAL SQ SCH ×3 (07:12→16:48)
[2017-06-11] MEDS: SERTRALINE HCL 50 MG TABLET (FP) PO SCH (09:58)
[2017-06-11] MEDS: PRENATAL VITAMINS W/ FOLIC ACID TABLET (FP) PO SCH (09:58)
[2017-06-11] MEDS: DIVALPROEX SODIUM 500 MG TABLET E.C. PO SCH ×2 (09:58→21:31)
[2017-06-11] MEDS: ARIPiprazole 10 MG TABLET PO SCH (09:58)
[2017-06-11] MEDS: NALTREXONE HCL 50 MG TABLET PO SCH (09:58)
[2017-06-11] MEDS ORDERED: INSULIN (NOVOLOG) ASPART 100 UNITS/ML 10ML VIAL ONE (11:48)
[2017-06-11] MEDS: ATORVASTATIN CA 40 MG TABLET (FP) PO SCH (21:31)
[2017-06-11] MEDS: traZODone HCL 50 MG TABLET (FP) PO SCH (21:31)
[2017-06-11] MEDS: QUEtiapine FUMARATE 300 MG TABLET PO SCH (21:31)
[2017-06-11] MEDS: THIAMINE HCL 100 MG TABLET (FP) PO SCH (21:31)
[2017-06-11] MEDS ORDERED: LANTUS 100 UNIT/ML PO SCH (22:00)
[2017-06-11] MEDS: LANTUS 100 UNIT/ML PO SCH (22:08)
[2017-06-12] MEDS: GABAPENTIN 400 MG CAPSULE (FP) PO SCH ×3 (06:01→21:02)
[2017-06-12] MEDS: metFORMIN HCL 500 MG TABLET (FP) PO SCH ×2 (07:00→17:01)
[2017-06-12] MEDS: INSULIN SLIDING SCALE (NOVOLOG) 1 VIAL SQ SCH ×3 (08:10→16:59)
[2017-06-12] MEDS: PRENATAL VITAMINS W/ FOLIC ACID TABLET (FP) PO SCH (10:20)
[2017-06-12] MEDS: NALTREXONE HCL 50 MG TABLET PO SCH (10:20)
[2017-06-12] MEDS: ARIPiprazole 10 MG TABLET PO SCH (10:20)
[2017-06-12] MEDS: DIVALPROEX SODIUM 500 MG TABLET E.C. PO SCH ×2 (10:20→21:03)
[2017-06-12] MEDS: SERTRALINE HCL 50 MG TABLET (FP) PO SCH (10:20)
[2017-06-12] MEDS ORDERED: INSULIN (NOVOLOG) ASPART 100 UNITS/ML 10ML VIAL ONE (11:46)
[2017-06-12] MEDS: traZODone HCL 50 MG TABLET (FP) PO SCH (21:02)
[2017-06-12] MEDS: QUEtiapine FUMARATE 300 MG TABLET PO SCH (21:02)
[2017-06-12] MEDS: THIAMINE HCL 100 MG TABLET (FP) PO SCH (21:02)
[2017-06-12] MEDS: ATORVASTATIN CA 40 MG TABLET (FP) PO SCH (21:02)
[2017-06-12] MEDS: LANTUS 100 UNIT/ML PO SCH (21:07)
[2017-06-13] MEDS: GABAPENTIN 400 MG CAPSULE (FP) PO SCH ×3 (05:53→21:37)
[2017-06-13] MEDS: INSULIN SLIDING SCALE (NOVOLOG) 1 VIAL SQ SCH ×3 (07:28→16:42)
[2017-06-13] MEDS: metFORMIN HCL 500 MG TABLET (FP) PO SCH ×2 (07:28→16:41)
[2017-06-13] MEDS: NALTREXONE HCL 50 MG TABLET PO SCH (09:50)
[2017-06-13] MEDS: SERTRALINE HCL 50 MG TABLET (FP) PO SCH (09:50)
[2017-06-13] MEDS: ARIPiprazole 10 MG TABLET PO SCH (09:50)
[2017-06-13] MEDS: DIVALPROEX SODIUM 500 MG TABLET E.C. PO SCH ×2 (09:51→21:37)
[2017-06-13] MEDS: PRENATAL VITAMINS W/ FOLIC ACID TABLET (FP) PO SCH (09:51)
[2017-06-13] MEDS ORDERED: INSULIN (NOVOLOG) ASPART 100 UNITS/ML 10ML VIAL ONE (11:36)
[2017-06-13] MEDS: traZODone HCL 50 MG TABLET (FP) PO SCH (21:37)
[2017-06-13] MEDS: ATORVASTATIN CA 40 MG TABLET (FP) PO SCH (21:37)
[2017-06-13] MEDS: QUEtiapine FUMARATE 300 MG TABLET PO SCH (21:37)
[2017-06-13] MEDS: THIAMINE HCL 100 MG TABLET (FP) PO SCH (21:37)
[2017-06-13] MEDS: LANTUS 100 UNIT/ML PO SCH (21:38)
[2017-06-14] MEDS: GABAPENTIN 400 MG CAPSULE (FP) PO SCH ×3 (06:06→21:04)
[2017-06-14] MEDS: INSULIN SLIDING SCALE (NOVOLOG) 1 VIAL SQ SCH ×3 (07:13→17:00)
[2017-06-14] MEDS: metFORMIN HCL 500 MG TABLET (FP) PO SCH ×2 (07:13→16:57)
[2017-06-14] MEDS: DIVALPROEX SODIUM 500 MG TABLET E.C. PO SCH ×2 (09:47→21:03)
[2017-06-14] MEDS: ARIPiprazole 10 MG TABLET PO SCH (09:47)
[2017-06-14] MEDS: PRENATAL VITAMINS W/ FOLIC ACID TABLET (FP) PO SCH (09:47)
[2017-06-14] MEDS: NALTREXONE HCL 50 MG TABLET PO SCH (09:47)
[2017-06-14] MEDS: SERTRALINE HCL 50 MG TABLET (FP) PO SCH (09:47)
[2017-06-14] MEDS ORDERED: INSULIN (NOVOLOG) ASPART 100 UNITS/ML 10ML VIAL ONE ×2 (11:38→16:59)
[2017-06-14] MEDS: traZODone HCL 50 MG TABLET (FP) PO SCH (21:03)
[2017-06-14] MEDS: QUEtiapine FUMARATE 300 MG TABLET PO SCH (21:04)
[2017-06-14] MEDS: THIAMINE HCL 100 MG TABLET (FP) PO SCH (21:04)
[2017-06-14] MEDS: LANTUS 100 UNIT/ML PO SCH (21:04)
[2017-06-14] MEDS: ATORVASTATIN CA 40 MG TABLET (FP) PO SCH (21:04)
[2017-06-15] MEDS: GABAPENTIN 400 MG CAPSULE (FP) PO SCH ×3 (05:51→21:45)
[2017-06-15] MEDS: metFORMIN HCL 500 MG TABLET (FP) PO SCH ×2 (06:23→16:57)
[2017-06-15] MEDS: INSULIN SLIDING SCALE (NOVOLOG) 1 VIAL SQ SCH ×3 (06:23→17:01)
[2017-06-15] MEDS: ARIPiprazole 10 MG TABLET PO SCH (10:04)
[2017-06-15] MEDS: PRENATAL VITAMINS W/ FOLIC ACID TABLET (FP) PO SCH (10:05)
[2017-06-15] MEDS: SERTRALINE HCL 50 MG TABLET (FP) PO SCH (10:05)
[2017-06-15] MEDS: NALTREXONE HCL 50 MG TABLET PO SCH (10:05)
[2017-06-15] MEDS: DIVALPROEX SODIUM 500 MG TABLET E.C. PO SCH ×2 (10:05→21:45)
[2017-06-15] MEDS: ATORVASTATIN CA 40 MG TABLET (FP) PO SCH (21:44)
[2017-06-15] MEDS: QUEtiapine FUMARATE 300 MG TABLET PO SCH (21:45)
[2017-06-15] MEDS: THIAMINE HCL 100 MG TABLET (FP) PO SCH (21:45)
[2017-06-15] MEDS: traZODone HCL 50 MG TABLET (FP) PO SCH (21:45)
[2017-06-15] MEDS: LANTUS 100 UNIT/ML PO SCH (21:47)
[2017-06-16] MEDS: GABAPENTIN 400 MG CAPSULE (FP) PO SCH ×3 (06:04→21:38)
[2017-06-16] MEDS: INSULIN SLIDING SCALE (NOVOLOG) 1 VIAL SQ SCH ×3 (07:16→17:02)
[2017-06-16] MEDS: metFORMIN HCL 500 MG TABLET (FP) PO SCH ×2 (07:16→16:56)
[2017-06-16] MEDS: DIVALPROEX SODIUM 500 MG TABLET E.C. PO SCH ×2 (10:08→21:38)
[2017-06-16] MEDS: ARIPiprazole 10 MG TABLET PO SCH (10:08)
[2017-06-16] MEDS: NALTREXONE HCL 50 MG TABLET PO SCH (10:08)
[2017-06-16] MEDS: SERTRALINE HCL 50 MG TABLET (FP) PO SCH (10:08)
[2017-06-16] MEDS: PRENATAL VITAMINS W/ FOLIC ACID TABLET (FP) PO SCH (10:08)
[2017-06-16] MEDS ORDERED: INSULIN (NOVOLOG) ASPART 100 UNITS/ML 10ML VIAL ONE ×2 (11:35→17:02)
[2017-06-16] MEDS: QUEtiapine FUMARATE 300 MG TABLET PO SCH (21:38)
[2017-06-16] MEDS: THIAMINE HCL 100 MG TABLET (FP) PO SCH (21:38)
[2017-06-16] MEDS: ATORVASTATIN CA 40 MG TABLET (FP) PO SCH (21:38)
[2017-06-16] MEDS: traZODone HCL 50 MG TABLET (FP) PO SCH (21:38)
[2017-06-16] MEDS: LANTUS 100 UNIT/ML PO SCH (21:40)
[2017-06-17] MEDS: GABAPENTIN 400 MG CAPSULE (FP) PO SCH ×3 (06:00→21:41)
[2017-06-17] MEDS: metFORMIN HCL 500 MG TABLET (FP) PO SCH ×2 (07:09→16:52)
[2017-06-17] MEDS: INSULIN SLIDING SCALE (NOVOLOG) 1 VIAL SQ SCH ×3 (07:10→16:53)
[2017-06-17] MEDS: NALTREXONE HCL 50 MG TABLET PO SCH (09:48)
[2017-06-17] MEDS: PRENATAL VITAMINS W/ FOLIC ACID TABLET (FP) PO SCH (09:48)
[2017-06-17] MEDS: ARIPiprazole 10 MG TABLET PO SCH (09:48)
[2017-06-17] MEDS: DIVALPROEX SODIUM 500 MG TABLET E.C. PO SCH ×2 (09:48→21:41)
[2017-06-17] MEDS: SERTRALINE HCL 50 MG TABLET (FP) PO SCH (09:48)
[2017-06-17] MEDS: THIAMINE HCL 100 MG TABLET (FP) PO SCH (21:40)
[2017-06-17] MEDS: traZODone HCL 50 MG TABLET (FP) PO SCH (21:41)
[2017-06-17] MEDS: QUEtiapine FUMARATE 300 MG TABLET PO SCH (21:41)
[2017-06-17] MEDS: ATORVASTATIN CA 40 MG TABLET (FP) PO SCH (21:41)
[2017-06-17] MEDS: LANTUS 100 UNIT/ML PO SCH (21:42)
[2017-06-18] MEDS: GABAPENTIN 400 MG CAPSULE (FP) PO SCH ×3 (05:59→21:49)
[2017-06-18] MEDS: metFORMIN HCL 500 MG TABLET (FP) PO SCH ×2 (05:59→16:51)
[2017-06-18] MEDS: INSULIN SLIDING SCALE (NOVOLOG) 1 VIAL SQ SCH ×3 (07:47→16:52)
[2017-06-18] MEDS: ARIPiprazole 10 MG TABLET PO SCH (10:01)
[2017-06-18] MEDS: NALTREXONE HCL 50 MG TABLET PO SCH (10:01)
[2017-06-18] MEDS: DIVALPROEX SODIUM 500 MG TABLET E.C. PO SCH ×2 (10:01→21:49)
[2017-06-18] MEDS: PRENATAL VITAMINS W/ FOLIC ACID TABLET (FP) PO SCH (10:01)
[2017-06-18] MEDS: SERTRALINE HCL 50 MG TABLET (FP) PO SCH (10:02)
[2017-06-18] MEDS: THIAMINE HCL 100 MG TABLET (FP) PO SCH (21:48)
[2017-06-18] MEDS: ATORVASTATIN CA 40 MG TABLET (FP) PO SCH (21:49)
[2017-06-18] MEDS: QUEtiapine FUMARATE 300 MG TABLET PO SCH (21:49)
[2017-06-18] MEDS: traZODone HCL 50 MG TABLET (FP) PO SCH (21:49)
[2017-06-18] MEDS: LANTUS 100 UNIT/ML PO SCH (23:21)
[2017-06-19] MEDS: GABAPENTIN 400 MG CAPSULE (FP) PO SCH ×3 (06:15→21:38)
[2017-06-19] MEDS: INSULIN SLIDING SCALE (NOVOLOG) 1 VIAL SQ SCH ×3 (07:04→16:54)
[2017-06-19] MEDS: metFORMIN HCL 500 MG TABLET (FP) PO SCH ×2 (07:04→16:50)
[2017-06-19] MEDS: DIVALPROEX SODIUM 500 MG TABLET E.C. PO SCH ×2 (09:50→21:38)
[2017-06-19] MEDS: SERTRALINE HCL 50 MG TABLET (FP) PO SCH (09:50)
[2017-06-19] MEDS: NALTREXONE HCL 50 MG TABLET PO SCH (09:50)
[2017-06-19] MEDS: ARIPiprazole 10 MG TABLET PO SCH (09:50)
[2017-06-19] MEDS: PRENATAL VITAMINS W/ FOLIC ACID TABLET (FP) PO SCH (09:50)
[2017-06-19] MEDS ORDERED: INSULIN (NOVOLOG) ASPART 100 UNITS/ML 10ML VIAL ONE (17:03)
[2017-06-19] MEDS: THIAMINE HCL 100 MG TABLET (FP) PO SCH (21:38)
[2017-06-19] MEDS: ATORVASTATIN CA 40 MG TABLET (FP) PO SCH (21:38)
[2017-06-19] MEDS: QUEtiapine FUMARATE 300 MG TABLET PO SCH (21:38)
[2017-06-19] MEDS: traZODone HCL 50 MG TABLET (FP) PO SCH (21:38)
[2017-06-19] MEDS: LANTUS 100 UNIT/ML PO SCH (21:40)
[2017-06-20] MEDS: GABAPENTIN 400 MG CAPSULE (FP) PO SCH ×3 (05:59→20:59)
[2017-06-20] MEDS: INSULIN SLIDING SCALE (NOVOLOG) 1 VIAL SQ SCH ×3 (07:13→16:48)
[2017-06-20] MEDS: metFORMIN HCL 500 MG TABLET (FP) PO SCH ×2 (07:13→16:47)
[2017-06-20] MEDS: SERTRALINE HCL 50 MG TABLET (FP) PO SCH (10:02)
[2017-06-20] MEDS: ARIPiprazole 10 MG TABLET PO SCH (10:02)
[2017-06-20] MEDS: DIVALPROEX SODIUM 500 MG TABLET E.C. PO SCH ×2 (10:02→21:00)
[2017-06-20] MEDS: PRENATAL VITAMINS W/ FOLIC ACID TABLET (FP) PO SCH (10:02)
[2017-06-20] MEDS: NALTREXONE HCL 50 MG TABLET PO SCH (10:02)
[2017-06-20] MEDS ORDERED: INSULIN (NOVOLOG) ASPART 100 UNITS/ML 10ML VIAL ONE (11:50)
[2017-06-20] MEDS: ATORVASTATIN CA 40 MG TABLET (FP) PO SCH (20:59)
[2017-06-20] MEDS: QUEtiapine FUMARATE 300 MG TABLET PO SCH (21:00)
[2017-06-20] MEDS: traZODone HCL 50 MG TABLET (FP) PO SCH (21:00)
[2017-06-20] MEDS: THIAMINE HCL 100 MG TABLET (FP) PO SCH (21:00)
[2017-06-20] MEDS: LANTUS 100 UNIT/ML PO SCH (21:01)
[2017-06-21] MEDS: GABAPENTIN 400 MG CAPSULE (FP) PO SCH ×3 (05:52→21:35)
[2017-06-21] MEDS: INSULIN SLIDING SCALE (NOVOLOG) 1 VIAL SQ SCH ×3 (07:15→16:48)
[2017-06-21] MEDS: metFORMIN HCL 500 MG TABLET (FP) PO SCH ×2 (07:15→16:49)
[2017-06-21] MEDS: NALTREXONE HCL 50 MG TABLET PO SCH (09:59)
[2017-06-21] MEDS: DIVALPROEX SODIUM 500 MG TABLET E.C. PO SCH ×2 (09:59→21:35)
[2017-06-21] MEDS: PRENATAL VITAMINS W/ FOLIC ACID TABLET (FP) PO SCH (09:59)
[2017-06-21] MEDS: SERTRALINE HCL 50 MG TABLET (FP) PO SCH (09:59)
[2017-06-21] MEDS: ARIPiprazole 10 MG TABLET PO SCH (09:59)
[2017-06-21] MEDS: traZODone HCL 50 MG TABLET (FP) PO SCH (21:34)
[2017-06-21] MEDS: THIAMINE HCL 100 MG TABLET (FP) PO SCH (21:35)
[2017-06-21] MEDS: QUEtiapine FUMARATE 300 MG TABLET PO SCH (21:35)
[2017-06-21] MEDS: ATORVASTATIN CA 40 MG TABLET (FP) PO SCH (21:35)
[2017-06-21] MEDS: LANTUS 100 UNIT/ML PO SCH (21:44)
[2017-06-22] MEDS: GABAPENTIN 400 MG CAPSULE (FP) PO SCH ×3 (06:00→21:35)
[2017-06-22] MEDS: INSULIN SLIDING SCALE (NOVOLOG) 1 VIAL SQ SCH ×3 (07:06→16:28)
[2017-06-22] MEDS: metFORMIN HCL 500 MG TABLET (FP) PO SCH ×2 (07:06→16:26)
[2017-06-22] MEDS: NALTREXONE HCL 50 MG TABLET PO SCH (09:59)
[2017-06-22] MEDS: DIVALPROEX SODIUM 500 MG TABLET E.C. PO SCH ×2 (09:59→21:35)
[2017-06-22] MEDS: SERTRALINE HCL 50 MG TABLET (FP) PO SCH (09:59)
[2017-06-22] MEDS: ARIPiprazole 10 MG TABLET PO SCH (09:59)
[2017-06-22] MEDS: PRENATAL VITAMINS W/ FOLIC ACID TABLET (FP) PO SCH (09:59)
[2017-06-22] MEDS ORDERED: PT OWN MED DRAWER 7, Y5N ONE (20:35)
[2017-06-22] MEDS: THIAMINE HCL 100 MG TABLET (FP) PO SCH (21:35)
[2017-06-22] MEDS: traZODone HCL 50 MG TABLET (FP) PO SCH (21:36)
[2017-06-22] MEDS: ATORVASTATIN CA 40 MG TABLET (FP) PO SCH (21:36)
[2017-06-22] MEDS: QUEtiapine FUMARATE 300 MG TABLET PO SCH (21:36)
[2017-06-22] MEDS: LANTUS 100 UNIT/ML PO SCH (21:37)
[2017-06-23] MEDS: GABAPENTIN 400 MG CAPSULE (FP) PO SCH ×3 (06:17→21:35)
[2017-06-23] MEDS: INSULIN SLIDING SCALE (NOVOLOG) 1 VIAL SQ SCH ×3 (06:19→16:47)
[2017-06-23] MEDS: PRENATAL VITAMINS W/ FOLIC ACID TABLET (FP) PO SCH (09:51)
[2017-06-23] MEDS: metFORMIN HCL 500 MG TABLET (FP) PO SCH ×2 (09:51→16:46)
[2017-06-23] MEDS: ARIPiprazole 10 MG TABLET PO SCH (09:51)
[2017-06-23] MEDS: SERTRALINE HCL 50 MG TABLET (FP) PO SCH (09:52)
[2017-06-23] MEDS: NALTREXONE HCL 50 MG TABLET PO SCH (10:24)
[2017-06-23] MEDS: DIVALPROEX SODIUM 500 MG TABLET E.C. PO SCH ×2 (10:25→21:35)
[2017-06-23] MEDS ORDERED: INSULIN (NOVOLOG) ASPART 100 UNITS/ML 10ML VIAL ONE (11:31)
[2017-06-23] MEDS: ATORVASTATIN CA 40 MG TABLET (FP) PO SCH (21:35)
[2017-06-23] MEDS: QUEtiapine FUMARATE 300 MG TABLET PO SCH (21:35)
[2017-06-23] MEDS: traZODone HCL 50 MG TABLET (FP) PO SCH (21:35)
[2017-06-23] MEDS: THIAMINE HCL 100 MG TABLET (FP) PO SCH (21:35)
[2017-06-23] MEDS: LANTUS 100 UNIT/ML PO SCH (21:39)
[2017-06-24] MEDS: GABAPENTIN 400 MG CAPSULE (FP) PO SCH ×3 (05:55→21:38)
[2017-06-24 06:38] VITALS: PULSE 73
[2017-06-24] MEDS: INSULIN SLIDING SCALE (NOVOLOG) 1 VIAL SQ SCH ×3 (07:12→16:55)
[2017-06-24] MEDS: metFORMIN HCL 500 MG TABLET (FP) PO SCH ×2 (07:12→16:53)
[2017-06-24] MEDS: NALTREXONE HCL 50 MG TABLET PO SCH (10:10)
[2017-06-24] MEDS: DIVALPROEX SODIUM 500 MG TABLET E.C. PO SCH ×2 (10:10→21:38)
[2017-06-24] MEDS: ARIPiprazole 10 MG TABLET PO SCH (10:10)
[2017-06-24] MEDS: SERTRALINE HCL 50 MG TABLET (FP) PO SCH (10:10)
[2017-06-24] MEDS: PRENATAL VITAMINS W/ FOLIC ACID TABLET (FP) PO SCH (10:10)
[2017-06-24] MEDS: THIAMINE HCL 100 MG TABLET (FP) PO SCH (21:38)
[2017-06-24] MEDS: QUEtiapine FUMARATE 300 MG TABLET PO SCH (21:38)
[2017-06-24] MEDS: ATORVASTATIN CA 40 MG TABLET (FP) PO SCH (21:38)
[2017-06-24] MEDS: traZODone HCL 50 MG TABLET (FP) PO SCH (21:38)
[2017-06-24] MEDS: LANTUS 100 UNIT/ML PO SCH (21:42)
[2017-06-25] MEDS: metFORMIN HCL 500 MG TABLET (FP) PO SCH (06:43)
[2017-06-25] MEDS: INSULIN SLIDING SCALE (NOVOLOG) 1 VIAL SQ SCH ×2 (06:43→11:40)
[2017-06-25] MEDS: GABAPENTIN 400 MG CAPSULE (FP) PO SCH (06:44)
[2017-06-25 07:06] VITALS: BP 125/80; TEMP 98.2
[2017-06-25] MEDS: ARIPiprazole 10 MG TABLET PO SCH (09:58)
[2017-06-25] MEDS: NALTREXONE HCL 50 MG TABLET PO SCH (09:58)
[2017-06-25] MEDS: PRENATAL VITAMINS W/ FOLIC ACID TABLET (FP) PO SCH (09:58)
[2017-06-25] MEDS: SERTRALINE HCL 50 MG TABLET (FP) PO SCH (09:58)
[2017-06-25] MEDS: DIVALPROEX SODIUM 500 MG TABLET E.C. PO SCH (09:59)
--- NOTE | 2017-06-25 11:36 | PN ---
Psychiatric Progress Note Vital Signs: Vital Signs Period Temp Pulse Resp BP Sys/Moreno Pulse Ox Last 24 Hr 98.2 F 73 18-20 125/80 Date of Session: 06/25/17 Chief Complaint:: Discharge visit HPI: Patient addressed Alcohol,Cocaine dependence comorbid with Bipolar disorder. ROS: Significant for DM,Neuropathy,HTN,DM.Hyperlipidemia. Current Medications: Active Medications Generic Name Dose Route Start Last Admin Trade Name Freq PRN Reason Stop Dose Admin Acetaminophen 650 mg 06/05/17 19:27 06/09/17 19:38 Tylenol - PO 650 mg Q4H PRN Administration PAIN Al Hydroxide/Mg Hydroxide 30 ml 06/05/17 19:27 Mylanta Oral Suspension - PO Q6H PRN DYSPEPSIA Aripiprazole 10 mg 06/06/17 11:25 06/25/17 09:58 Abilify PO 10 mg DAILY JEFE Administration Atorvastatin Calcium 40 mg 06/05/17 22:00 06/24/17 21:38 Lipitor - PO 40 mg HS JEFE Administration Colloidal Oatmeal 1 applic 06/09/17 11:30 Aveeno Soap - TP DAILY PRN HYGEINE Divalproex Sodium 500 mg 06/06/17 11:15 06/25/17 09:59 Depakote - PO 500 mg BID JEFE Administration Eucalyptus/Menthol/Phenol/Sorbitol 1 each 06/05/17 19:27 Cepastat Lozenge - MM Q4H PRN SORE THROAT Gabapentin 800 mg 06/05/17 22:00 06/25/17 06:44 Neurontin - PO 800 mg TID JEFE Administration Guaifenesin 10 ml 06/05/17 19:27 Robitussin Dm - PO Q6H PRN COUGH Insulin Aspart 1 vial 06/06/17 11:00 06/25/17 06:43 Novolog Vial Sliding Scale - SQ Not Given TIDAC [facility] Protocol Loperamide HCl 4 mg 06/05/17 19:27 Imodium - PO Q6H PRN DIARRHEA Magnesium Citrate 300 ml 06/05/17 19:27 Citroma - PO Q48H PRN CONSTIPATION Magnesium Hydroxide 30 ml 06/05/17 19:27 Milk Of Magnesia - PO DAILY PRN CONSTIPATION Metformin HCl 500 mg 06/06/17 12:30 06/25/17 06:43 Glucophage - PO 500 mg DAILY@0700 JEFE Administration Metformin HCl 1,000 mg 06/06/17 16:30 06/24/17 16:53 Glucophage - PO 1,000 mg DAILY@1630 JEFE Administration Naltrexone HCl 50 mg 06/05/17 19:45 06/25/17 09:58 Revia - PO 50 mg DAILY JEFE Administration Non-Formulary Medication 0 each 06/09/17 16:30 06/25/17 07:31 Patient's Own Med PO 1 each TIDAC JEFE Administration Lantus Solostar 1 each 06/11/17 22:00 06/24/17 21:42 100units/Ml PO 1 each HS JEFE Administration Multivit/Folic Acid/Iron 1 tab 06/06/17 10:00 06/25/17 09:58 Vitamins (Sjr) - PO 1 tab DAILY JEFE Administration Pseudoephedrine/Triprolidine 1 combo 06/05/17 19:27 Actifed - PO TID PRN NASAL CONGESTION Quetiapine Fumarate 300 mg 06/06/17 22:00 06/24/17 21:38 Seroquel - PO 300 mg HS JEFE Administration Sertraline HCl 200 mg 06/06/17 11:15 06/25/17 09:58 Zoloft - PO 200 mg DAILY JEFE Administration Thiamine HCl 100 mg 06/05/17 22:00 06/24/17 21:38 Vitamin B1 - PO 100 mg HS JEFE Administration Trazodone HCl 150 mg 06/06/17 22:00 06/24/17 21:38 Desyrel - PO 150 mg HS JEFE Administration Current Side Effect: No Lab tests ordered: No Lab tests reviewed: Yes Provider note:: Patient completed this program today.He kumar smet his treatment goals adn will continue to address his issues on outpatient basis.Patient reports finding that current medications help him to endoscopy support specialist with mood instability, depression,insomnia,craving for drugs.Scripts for 30 days supploy privided: Gabapentin 800 mg po tid,Seroquel 400 mg po hs,zoloft 200 mg po daily, Naltrexone 50 mg po daily and Trazxodone 150 mg po hs. Patient identifies areas of difficulties and behaviors which contribute to relapse.Supportive therapy provided focusing on coping skills,support utilization to [place] recovery. Patient is stable for discharge today. Total face to face time:: 30 Mental Status Exam - Mental Status Exam Alert and Oriented to: Time, Place, Person Cognitive Function: Grossly Intact Patient Appearance: Well Groomed Mood: Euthymic Affect: Appropriate, Mood Congruent Patient Behavior: Appropriate, Cooperative Speech Pattern: Clear Voice Loudness: Normal Thought Process: Goal Oriented Thought Disorder: Not Present Hallucinations: Denies Suicidal Ideation: Denies Insight/Judgement: Fair Sleep: Fair Appetite: Good Muscle strength/Tone: Normal Gait/Station: Normal
[2017-06-25] MEDS: ACETAMINOPHEN 325 MG TABLET (FP) PO PRN (11:58)
== END 2017-06-25 12:10 | disposition home or self-care (01) | DRG 895 ==
LOC: YASAS 15:06 → Y3W 17:44
PROVIDERS: ADMIT Psychiatry & Neurology Psychiatry; ATTEND Psychiatry & Neurology Psychiatry
PROC: HZ42ZZZ Group Counseling for Substance Abuse Treatment, Cognitive-Behavioral (ICD-10-PCS; principal; 2017-06-05)
DX: F10.20 Alcohol dependence, uncomplicated (principal); F14.20 Cocaine dependence, uncomplicated; F31.81 Bipolar II disorder; F19.282 Other psychoactive substance dependence with psychoactive substance-induced sleep disorder; F25.9 Schizoaffective disorder, unspecified; F19.24 Other psychoactive substance dependence with psychoactive substance-induced mood disorder; E78.5 Hyperlipidemia, unspecified; E11.9 Type 2 diabetes mellitus without complications; G62.9 Polyneuropathy, unspecified; I10 Essential (primary) hypertension; R00.0 Tachycardia, unspecified; K21.9 Gastro-esophageal reflux disease without esophagitis; E66.9 Obesity, unspecified; Z68.29 Body mass index [BMI] 29.0-29.9, adult; Z91.013 Allergy to seafood
CPT/HCPCS: 36415; 80053; 80164; 81003; 85027; 86593; 93005; 93010

== ENCOUNTER 2018-03-02 15:22 | Inpatient (IN) | payer OTHER ==
[2018-03-02 16:54] VITALS: BMI 29.2
--- NOTE | 2018-03-02 20:10 | HP ---
Admission ROS [facility] Chief Complaint: seeking inpatient rehab services for cocaine dependence Allergies/Adverse Reactions: Allergies Allergy/AdvReac Type Severity Reaction Status Date / Time Fish Containing Products Allergy Severe Hives Verified 03/02/18 17:58 shellfish derived Allergy Severe Hives Verified 03/02/18 17:58 No Known Drug Allergies Allergy Verified 03/02/18 17:58 History of Present Illness: 57 y.o. male with long hx/o cocaine dependence here for rehab services. client is known to this program. last here May 2017. States last rehab was in September of this year at [facility]. reports longest clean time 5 years. DENIES HX/O OVERDOSE, SI/HI, AVH. Exam Limitations: No Limitations - Ebola screening Have you traveled outside of the country in the last 21 days: No (N) Have you had contact with anyone from an Ebola affected area: No Have you been sick,other than usual withdrawal symptoms: No Do you have a fever: No - Review of Systems Constitutional: Chills EENT: reports: No Symptoms Reported Respiratory: reports: No Symptoms reported Cardiac: reports: No Symptoms Reported GI: reports: No Symptoms Reported : reports: No Symptoms Reported Musculoskeletal: reports: No Symptoms Reported Integumentary: reports: No Symptoms Reported Neuro: reports: No Symptoms reported Endocrine: reports: Other (HX/O TYPE 2 DM) Hematology: reports: No Symptoms Reported Psychiatric: reports: Anxious, Depressed, other (BIPOLAR) Other Systems: Reviewed and Negative Patient History - Patient Medical History Hx Anemia: No Hx Asthma: No Hx Chronic Obstructive Pulmonary Disease (COPD): No Hx Cancer: No Hx Cardiac Disorders: No Hx Congestive Heart Failure: No Hx Hypertension: Yes Hx Hypercholesterolemia: Yes Hx Pacemaker: No HX Cerebrovascular Accident: No Hx Seizures: No Hx Dementia: No Hx Diabetes: Yes (IDDM) Hx Gastrointestinal Disorders: Yes (acid reflux) Hx Liver Disease: No Hx Genitourinary Disorders: No Hx Sexually Transmitted Disorders: No Hx Renal Disease (ESRD): No Hx Thyroid Disease: No Hx Human Immunodeficiency Virus (HIV): No Hx Hepatitis C: No Hx Depression: Yes Hx Suicide Attempt: No Hx Bipolar Disorder: Yes Hx Schizophrenia: No Other Medical History: DENIES - Patient Surgical History Past Surgical History: Yes Hx Neurologic Surgery: No Hx Cataract Extraction: No Hx Cardiac Surgery: No Hx Lung Surgery: No Hx Breast Surgery: No Hx Breast Biopsy: No Hx Abdominal Surgery: No Hx Appendectomy: No Hx Cholecystectomy: No Hx Genitourinary Surgery: No Hx Section: No Hx Orthopedic Surgery: Yes (L knee in 2004) Anesthesia Reaction: No - PPD History Previous Implant?: Yes Documented Results: Negative w/proof Implanted On Prior R Admission?: Yes Date: 12/29/16 Results: 0 mm PPD to be Administered?: Yes - Smoking Cessation Smoking history: Never smoked Have you smoked in the past 12 months: No Aproximately how many cigarettes per day: 0 Cigars Per Day: 0 Hx Chewing Tobacco Use: No Initiated information on smoking cessation: No - Substance & Tx. History Hx Alcohol Use: No Hx Substance Use: Yes Substance Use Type: Cocaine Hx Substance Use Treatment: Yes ([facility]) - Substances Abused Cocaine Route: SNIFF Frequency: 3-6 times per week Amount used: $100 Age of first use: 17 Date of Last Use: 02/25/18 Family Disease History - Family Disease History Family Disease History: Diabetes: Brother (HTN), Other: Father (alcohol dependence) Admission Physical Exam [facility] - Vital Signs Vital Signs: Vital Signs - 24 hr 03/02/18 16:51 Temperature 97.5 F L Pulse Rate 70 Respiratory 18 Rate Blood Pressure 149/88 - Physical General Appearance: Yes: Appropriately Dressed, Tremorous, Sweating, Anxious HEENTM: Yes: EOMI, Normocephalic, Normal Voice, DAGOBERTO, Pharynx Normal, Other ( TOP DENTURES) Respiratory: Yes: Chest Non-Tender, Lungs Clear, Normal Breath Sounds, No Respiratory Distress, No Accessory Muscle Use Neck: Yes: No masses,lesions,Nodules, Supple, Trachea in good position Breast: Yes: Breast Exam Deferred Cardiology: Yes: Regular Rhythm, Regular Rate, S1, S2 Abdominal: Yes: Normal Bowel Sounds, Non Tender, Soft, Protuberent Genitourinary: Yes: Other (NO COMPLAINTS) Back: Yes: Normal Inspection Musculoskeletal: Yes: full range of Motion, Gait Steady Extremities: Yes: Normal Capillary Refill, Normal Range of Motion, Non-Tender, Tremors Neurological: Yes: Fully Oriented, Alert, Motor Strength 5/5, Normal Response Integumentary: Yes: Warm, Moist Lymphatic: Yes: Within Normal Limits - Diagnostic (1) Cocaine dependence, uncomplicated Current Visit: Yes Status: Chronic (2) Substance induced mood disorder Current Visit: Yes Status: Suspected Comment: COMPLAINT OF HX/O DEPRESSION/ ANXIETY/BIPOLAR (3) DM Diabetes mellitus type 2 Current Visit: Yes Status: Chronic (4) Gastroesophageal reflux disease Current Visit: Yes Status: Chronic (5) Hyperlipidemia Current Visit: Yes Status: Chronic Qualifiers: Hyperlipidemia type: pure hypercholesterolemia Qualified Code(s): E78.00 - Pure hypercholesterolemia, unspecified; E78.0 - Pure hypercholesterolemia (6) Neuropathy Current Visit: Yes Status: Chronic Cleared for Admission [facility] - Detox or Rehab Detox Regimen/Protocol: Not Applicable Claeared for Rehab Admission: Yes [facility] Breath Alcohol Content Breath Alcohol Content: 0 Urine Drug Screen - Results Drug Screen Negative: Yes Urine Drug Screen Results: [facility] Inpatient Rehab Admission - Initial Determination Are CD services needed?: Yes Free of communicable disease: Yes Not in need of hospitalization: Yes - Rehab Admission Criteria Previous failed treatment: Yes Poor recovery environment: Yes Comorbidities: Yes Lacks judgement: Yes Patient is meeting Inpatient Rehab admission criteria:: Yes
[2018-03-02] MEDS ORDERED: MAGNESIUM CITRATE 300 ML BOTTLE PO PRN (20:14)
[2018-03-02] MEDS ORDERED: MENTHOL/PHENOL 1 EACH UD MM PRN (20:14)
[2018-03-02] MEDS ORDERED: LOPERAMIDE HCL 2 MG CAPSULE PO PRN (20:14)
[2018-03-02] MEDS ORDERED: guaiFENesin/D-METHORPHAN HB 10 ML UNIT-DOSE CUPS PO PRN (20:14)
[2018-03-02] MEDS ORDERED: MAGNESIUM HYDROX 2400MG/30ML ORAL SUSPENSION 30 ML CUP PO PRN (20:14)
[2018-03-02] MEDS ORDERED: hydrOXYzine PAMOATE 50 MG CAPSULE (FP) PO PRN (20:14)
[2018-03-02] MEDS ORDERED: ACETAMINOPHEN 325 MG TABLET (FP) PO PRN (20:14)
[2018-03-02] MEDS ORDERED: P-EPHED 60MG/TRIPROLIDI 2.5MG TABLET PO PRN (20:14)
[2018-03-02] MEDS ORDERED: MELATONIN 5 MG TABLETS PO PRN (22:00)
[2018-03-02] MEDS: GABAPENTIN 400 MG CAPSULE (FP) PO SCH (22:41)
[2018-03-02] MEDS: IBUPROFEN 400 MG TABLET (FP) PO PRN (22:42)
[2018-03-02] MEDS: ATORVASTATIN CA 40 MG TABLET (FP) PO SCH (22:43)
[2018-03-02] MEDS: THIAMINE HCL 100 MG TABLET (FP) PO SCH (22:44)
[2018-03-02] MEDS: INSULIN (LEVEMIR) 100 UNITS/ML UNITS SQ SCH (22:44)
[2018-03-03] MEDS ORDERED: TUBERCULIN PPD 5 TU/0.1ML VIAL ID ONE (00:29)
[2018-03-03 01:55] LABS: URINE APPEARANCE CLEAR; URINE BILIRUBIN NEGATIVE (<2.0 mg/dL); URINE COLOR YELLOW; URINE GLUCOSE (UA) 3+ (NEGATIVE); URINE KETONE NEGATIVE (NEGATIVE); URINE LEUK ESTERASE NEGATIVE (NEGATIVE); URINE NITRITE NEGATIVE (NEGATIVE); URINE PROTEIN NEGATIVE (NEGATIVE)
[2018-03-03] MEDS: GABAPENTIN 400 MG CAPSULE (FP) PO SCH ×3 (06:24→21:34)
[2018-03-03] MEDS: metFORMIN HCL 500 MG TABLET (FP) PO SCH ×2 (06:25→17:04)
[2018-03-03] MEDS ORDERED: INSULIN (NOVOLOG) ASPART 100 UNITS/ML 10ML VIAL ONE (07:26)
[2018-03-03] MEDS: INSULIN (NOVOLOG) ASPART 100 UNITS/ML 10ML VIAL SQ SCH ×3 (07:27→17:08)
[2018-03-03] MEDS: PRENATAL VITAMINS W/ FOLIC ACID TABLET (FP) PO SCH (10:34)
[2018-03-03] MEDS: HYDROCHLOROTHIAZIDE 25 MG TABLET (FP) PO SCH (10:34)
[2018-03-03] MEDS: LISINOPRIL 10 MG TABLET (FP) PO SCH (10:34)
[2018-03-03 12:21] LABS: HEMATOCRIT 38.3 % (35.4-49); HEMOGLOBIN 13.3 GM/dL (11.7-16.9); MCH 29.2 pg (25.7-33.7); MCHC 34.7 g/dl (32.0-35.9); MEAN CELL VOLUME 84.1 fl (80-96); MEAN PLT VOLUME 9.3 fl (7.5-11.1); PLATELET COUNT 159 K/MM3 (134-434); RBC 4.55 M/mm3 (4.00-5.60); RDW 13.5 % (11.9-15.9); WHITE BLOOD COUNT 3.8 K/mm3 (4.0-10.0)
[2018-03-03 12:32] LABS: ALBUMIN 3.5 g/dl (3.4-5.0); ANION GAP 7 (8-16); BLOOD UREA NITROGEN 19 mg/dL (7-18); CHLORIDE 106 mmol/L (98-107); CO2 27 mmol/L (21-32); CREATININE 0.9 mg/dL (0.7-1.3); GLUCOSE,RANDOM 210 mg/dL (74-106); SGOT/AST 21 U/L (15-37); SGPT/ALT 43 U/L (12-78); SODIUM 140 mmol/L (136-145)
[2018-03-03 12:35] LABS: ALK PHOS 53 U/L (45-117); BILIRUBIN,TOTAL 0.4 mg/dL (0.2-1.0); TOT PROT 7.3 g/dl (6.4-8.2)
[2018-03-03] MEDS ORDERED: COLLOIDAL OATMEAL 1 BAR EACH TP PRN (13:19)
--- NOTE | 2018-03-03 16:29 | EKG ---
Test Reason : Blood Pressure : / mmHG Vent. Rate : 066 BPM Atrial Rate : 066 BPM P-R Int : 168 ms QRS Dur : 104 ms QT Int : 406 ms P-R-T Axes : 060 -22 040 degrees QTc Int : 425 ms NORMAL SINUS RHYTHM NORMAL ECG WHEN COMPARED WITH ECG OF 05-JUN-2017 22:56, INCOMPLETE RIGHT BUNDLE BRANCH BLOCK IS NO LONGER PRESENT Confirmed by Gabe Buenrostro MD ([id number]) on 03/03/2018 4:28:58 PM Referred By: Confirmed By:Gabe Buenrostro MD
[2018-03-03] MEDS: THIAMINE HCL 100 MG TABLET (FP) PO SCH (21:35)
[2018-03-03] MEDS: ATORVASTATIN CA 40 MG TABLET (FP) PO SCH (21:35)
[2018-03-03] MEDS: INSULIN (LEVEMIR) 100 UNITS/ML UNITS SQ SCH (21:36)
[2018-03-04] MEDS: GABAPENTIN 400 MG CAPSULE (FP) PO SCH ×3 (06:25→21:41)
[2018-03-04] MEDS: metFORMIN HCL 500 MG TABLET (FP) PO SCH ×2 (06:28→17:24)
[2018-03-04] MEDS: INSULIN (NOVOLOG) ASPART 100 UNITS/ML 10ML VIAL SQ SCH ×3 (08:19→17:10)
--- NOTE | 2018-03-04 10:23 | HP ---
Psychiatrist Admission - Data Date of interview: 03/04/18 Admission source: Self-referred Identifying data: This is one of the multiple [facility] admissions for this 57 years old male, father of 25 years old daughter, unemployed on SSD, domiciled Medical History: Significant for type 2 diabetes, GERD, LBP/sciatica, neuropathy and history of orthosurgery for injury to left knee (2004). Psychiatric History: Patient is well known to medical technical writer from previous admission in this facility. Reports that his first psychiatric contact was in 2006 when he was admitted to [facility] for mood dysregulation and SI. He was diagnosed with Schizoaffective Disorder and treated with Seroquel. Reports multiple subsequent admissions to various institutions notably [facility], [facility] and most recently in November [address] [facility] for depression. He was discharged on Depakote 500 mg po BID, Seroquel 300 mg po HS, Trazadone 150 mg po HS, Abilify 10 mg po daily and Zoloft 200 mg po daily and referred to [facility] for aftercare. Told medical technical writer that he did not go to aftercare but has been getting med refills through ED. He was admitted to this facility for inpatient rehab on 06/05/17 and was discharged on 06/25/17 on Zoloft 100 mg po daily, Seroquel 300 mg po HS, Trazadone 150 mg po HS, Abilify 10 mg po daily and Depakote 500 mg po BID. Currently he reports seeing a psychiatrist at [facility] and he is prescribed Seroquel 300 mg o HS , Depakote 1000 mg po BID, Trazadone 150 mg po HS. Reports good adherence to medications. Denies previous suicidal attempt. At present, reports feeling good but sleeping poorly Physical/Sexual Abuse/Trauma History: Denies history of emotional, physical or sexual abuse as well as DV relationsip. No service. Receives SSD as result of on the job injury to knee (see above). Additional Comment: Reports history of one misdemeanor arrest Vital Signs: Vital Signs - 24 hr 03/04/18 03/04/18 03/04/18 01:16 03:30 06:48 Temperature 98.1 F Pulse Rate 69 Respiratory 18 18 18 Rate Blood Pressure 135/82 Allergies/Adverse Reactions: Allergies Allergy/AdvReac Type Severity Reaction Status Date / Time Fish Containing Products Allergy Severe Hives Verified 03/02/18 17:58 shellfish derived Allergy Severe Hives Verified 03/02/18 17:58 No Known Drug Allergies Allergy Verified 03/02/18 17:58 Date of last physical exam: 03/02/18 Concur with the findings of this exam: Yes - Substance Abuse/Tx History Hx Alcohol Use: No Hx Substance Use: Yes Substance Use Type: Cocaine (Started using cocaine at age 17, consume $100 worth daily. Last used on 02/25/18) Hx Substance Use Treatment: Yes (4 previous inpt detox & 8 inpt rehab admissions @ [facility]) Mental Status Exam - Mental Status Exam Alert and Oriented to: Time, Place, Person Cognitive Function: Fair Patient Appearance: Well Groomed Mood: Hopeful, Euthymic Affect: Appropriate Patient Behavior: Cooperative Speech Pattern: Clear Voice Loudness: Normal Thought Process: Intact Thought Disorder: Not Present Hallucinations: Denies Suicidal Ideation: Denies Homicidal Ideation: Denies Insight/Judgement: Fair Sleep: Poorly Appetite: Good Muscle strength/Tone: Normal Gait/Station: Normal Psychiatric Findings - Problem List ([place] 1, 2,3) (1) Cocaine dependence Current Visit: Yes Status: Acute (2) Schizoaffective disorder Current Visit: No Status: Chronic Comment: Endorsed by the patient in this interview. (3) Bipolar II disorder Current Visit: No Status: Ruled-out (4) Substance-induced sleep disorder Current Visit: Yes Status: Acute (5) DM Diabetes mellitus type 2 Current Visit: Yes Status: Chronic (6) Gastroesophageal reflux disease Current Visit: Yes Status: Chronic (7) Hyperlipidemia Current Visit: Yes Status: Chronic Qualifiers: Hyperlipidemia type: pure hypercholesterolemia Qualified Code(s): E78.00 - Pure hypercholesterolemia, unspecified; E78.0 - Pure hypercholesterolemia (8) Neuropathy Current Visit: Yes Status: Chronic - Initial Treatment Plan Initial Treatment Plan: 1) Continue Seroquel 300 mg po HS and Depakote 1000 mg po BID. 2) Start Trazadone 100 mg po HS. 3) Valproic Acid level on 03/09/18. 4 ) monitor progress
[2018-03-04] MEDS: LISINOPRIL 10 MG TABLET (FP) PO SCH (10:30)
[2018-03-04] MEDS: HYDROCHLOROTHIAZIDE 25 MG TABLET (FP) PO SCH (10:30)
[2018-03-04] MEDS: PRENATAL VITAMINS W/ FOLIC ACID TABLET (FP) PO SCH (10:30)
[2018-03-04] MEDS ORDERED: INSULIN (NOVOLOG) ASPART 100 UNITS/ML 10ML VIAL ONE (11:47)
[2018-03-04] MEDS: DIVALPROEX SODIUM 500 MG TABLET E.C. PO SCH ×2 (12:45→21:41)
[2018-03-04] MEDS: IBUPROFEN 400 MG TABLET (FP) PO PRN (13:06)
[2018-03-04] MEDS: traZODone HCL 100 MG TABLET (FP) PO SCH (21:41)
[2018-03-04] MEDS: QUEtiapine FUMARATE 300 MG TABLET PO SCH (21:41)
[2018-03-04] MEDS: THIAMINE HCL 100 MG TABLET (FP) PO SCH (21:41)
[2018-03-04] MEDS: ATORVASTATIN CA 40 MG TABLET (FP) PO SCH (21:42)
[2018-03-04] MEDS: INSULIN (LEVEMIR) 100 UNITS/ML UNITS SQ SCH (21:49)
[2018-03-05] MEDS: metFORMIN HCL 500 MG TABLET (FP) PO SCH ×2 (06:38→17:05)
[2018-03-05] MEDS: GABAPENTIN 400 MG CAPSULE (FP) PO SCH ×3 (06:38→21:23)
[2018-03-05] MEDS: INSULIN (NOVOLOG) ASPART 100 UNITS/ML 10ML VIAL SQ SCH ×3 (06:41→17:04)
[2018-03-05] MEDS ORDERED: INSULIN (NOVOLOG) ASPART 100 UNITS/ML 10ML VIAL ONE (06:42)
[2018-03-05] MEDS: PRENATAL VITAMINS W/ FOLIC ACID TABLET (FP) PO SCH (09:56)
[2018-03-05] MEDS: DIVALPROEX SODIUM 500 MG TABLET E.C. PO SCH ×2 (09:56→21:23)
[2018-03-05] MEDS: LISINOPRIL 10 MG TABLET (FP) PO SCH (09:56)
[2018-03-05] MEDS: HYDROCHLOROTHIAZIDE 25 MG TABLET (FP) PO SCH (09:56)
[2018-03-05] MEDS: IBUPROFEN 400 MG TABLET (FP) PO PRN (19:46)
[2018-03-05] MEDS: traZODone HCL 100 MG TABLET (FP) PO SCH (21:23)
[2018-03-05] MEDS: INSULIN (LEVEMIR) 100 UNITS/ML UNITS SQ SCH (21:23)
[2018-03-05] MEDS: QUEtiapine FUMARATE 300 MG TABLET PO SCH (21:23)
[2018-03-05] MEDS: THIAMINE HCL 100 MG TABLET (FP) PO SCH (21:23)
[2018-03-05] MEDS: ATORVASTATIN CA 40 MG TABLET (FP) PO SCH (21:25)
[2018-03-06] MEDS: GABAPENTIN 400 MG CAPSULE (FP) PO SCH ×3 (06:06→21:25)
[2018-03-06] MEDS: metFORMIN HCL 500 MG TABLET (FP) PO SCH ×2 (06:06→17:06)
[2018-03-06] MEDS: INSULIN (NOVOLOG) ASPART 100 UNITS/ML 10ML VIAL SQ SCH ×3 (06:39→17:07)
[2018-03-06] MEDS: DIVALPROEX SODIUM 500 MG TABLET E.C. PO SCH ×2 (10:25→21:25)
[2018-03-06] MEDS: LISINOPRIL 10 MG TABLET (FP) PO SCH (10:25)
[2018-03-06] MEDS: HYDROCHLOROTHIAZIDE 25 MG TABLET (FP) PO SCH (10:25)
[2018-03-06] MEDS: PRENATAL VITAMINS W/ FOLIC ACID TABLET (FP) PO SCH (10:25)
[2018-03-06] MEDS: traZODone HCL 100 MG TABLET (FP) PO SCH (21:25)
[2018-03-06] MEDS: ATORVASTATIN CA 40 MG TABLET (FP) PO SCH (21:25)
[2018-03-06] MEDS: QUEtiapine FUMARATE 300 MG TABLET PO SCH (21:25)
[2018-03-06] MEDS: THIAMINE HCL 100 MG TABLET (FP) PO SCH (21:25)
[2018-03-06] MEDS: INSULIN (LEVEMIR) 100 UNITS/ML UNITS SQ SCH (21:26)
[2018-03-07] MEDS ORDERED: INSULIN (NOVOLOG) ASPART 100 UNITS/ML 10ML VIAL ONE (04:46)
[2018-03-07] MEDS: metFORMIN HCL 500 MG TABLET (FP) PO SCH ×2 (06:16→17:21)
[2018-03-07] MEDS: GABAPENTIN 400 MG CAPSULE (FP) PO SCH ×3 (06:16→21:39)
[2018-03-07] MEDS: INSULIN (NOVOLOG) ASPART 100 UNITS/ML 10ML VIAL SQ SCH ×3 (07:38→17:21)
[2018-03-07] MEDS: DIVALPROEX SODIUM 500 MG TABLET E.C. PO SCH ×2 (10:07→21:39)
[2018-03-07] MEDS: HYDROCHLOROTHIAZIDE 25 MG TABLET (FP) PO SCH (10:07)
[2018-03-07] MEDS: PRENATAL VITAMINS W/ FOLIC ACID TABLET (FP) PO SCH (10:08)
[2018-03-07] MEDS: LISINOPRIL 10 MG TABLET (FP) PO SCH (12:09)
[2018-03-07] MEDS: traZODone HCL 100 MG TABLET (FP) PO SCH (21:39)
[2018-03-07] MEDS: QUEtiapine FUMARATE 300 MG TABLET PO SCH (21:39)
[2018-03-07] MEDS: ATORVASTATIN CA 40 MG TABLET (FP) PO SCH (21:39)
[2018-03-07] MEDS: THIAMINE HCL 100 MG TABLET (FP) PO SCH (21:39)
[2018-03-07] MEDS: INSULIN (LEVEMIR) 100 UNITS/ML UNITS SQ SCH (21:40)
[2018-03-07] MEDS: IBUPROFEN 400 MG TABLET (FP) PO PRN (21:42)
[2018-03-08] MEDS: metFORMIN HCL 500 MG TABLET (FP) PO SCH ×2 (06:20→17:04)
[2018-03-08] MEDS: INSULIN (NOVOLOG) ASPART 100 UNITS/ML 10ML VIAL SQ SCH ×3 (06:20→17:04)
[2018-03-08] MEDS: GABAPENTIN 400 MG CAPSULE (FP) PO SCH ×3 (06:20→21:42)
[2018-03-08] MEDS: PRENATAL VITAMINS W/ FOLIC ACID TABLET (FP) PO SCH (10:22)
[2018-03-08] MEDS: LISINOPRIL 10 MG TABLET (FP) PO SCH (10:23)
[2018-03-08] MEDS: DIVALPROEX SODIUM 500 MG TABLET E.C. PO SCH ×2 (10:23→21:42)
[2018-03-08] MEDS: HYDROCHLOROTHIAZIDE 25 MG TABLET (FP) PO SCH (10:23)
[2018-03-08] MEDS: MAG HYDROX/AL HYDROX/SIMETH 30 ML UNIT-DOSE CUP PO PRN ×2 (11:16→21:44)
--- NOTE | 2018-03-08 14:14 | PN ---
S Progress Note Note: Protonix ordered for complaint of heart burn. Pt has a hx of acid reflux and stated he on protonix for it which helped. Last medicated "a few days" ago before he came in to rehab.
[2018-03-08] MEDS: PANTOPRAZOLE 20 MG TABLET (FP) PO SCH (16:00)
[2018-03-08] MEDS: traZODone HCL 100 MG TABLET (FP) PO SCH (21:42)
[2018-03-08] MEDS: QUEtiapine FUMARATE 300 MG TABLET PO SCH (21:42)
[2018-03-08] MEDS: ATORVASTATIN CA 40 MG TABLET (FP) PO SCH (21:42)
[2018-03-08] MEDS: THIAMINE HCL 100 MG TABLET (FP) PO SCH (21:43)
[2018-03-08] MEDS: INSULIN (LEVEMIR) 100 UNITS/ML UNITS SQ SCH (22:15)
[2018-03-09] MEDS: metFORMIN HCL 500 MG TABLET (FP) PO SCH ×2 (06:15→17:05)
[2018-03-09] MEDS: GABAPENTIN 400 MG CAPSULE (FP) PO SCH ×3 (06:15→21:27)
[2018-03-09] MEDS: MAG HYDROX/AL HYDROX/SIMETH 30 ML UNIT-DOSE CUP PO PRN (06:21)
[2018-03-09] MEDS: INSULIN (NOVOLOG) ASPART 100 UNITS/ML 10ML VIAL SQ SCH ×3 (07:33→17:06)
[2018-03-09] MEDS: PANTOPRAZOLE 20 MG TABLET (FP) PO SCH (10:11)
[2018-03-09] MEDS: DIVALPROEX SODIUM 500 MG TABLET E.C. PO SCH ×2 (10:11→21:27)
[2018-03-09] MEDS: PRENATAL VITAMINS W/ FOLIC ACID TABLET (FP) PO SCH (10:11)
[2018-03-09] MEDS: HYDROCHLOROTHIAZIDE 25 MG TABLET (FP) PO SCH (10:11)
[2018-03-09] MEDS: LISINOPRIL 10 MG TABLET (FP) PO SCH (10:11)
--- NOTE | 2018-03-09 13:15 | PN ---
S Progress Note Note: PATIENT PRESENTS WITH C/O HEARTBURN AND INDIGESTION. DENIES N/V/D. PE: GENERAL: ALERT AND ORIENTED X 3. SKIN WARM AND DRY. GI: SOFT, BS+, NT EXT: NO EDEMA, FULL ROM. A/P: HEARTBURN/INDIGESTION: WILL D/C PROTONIX AND START ZANTAC 150MG BID, DIET MODIFICATIONS REVIEWED, CONTINUE TO MONITOR CLINICALLY.
--- NOTE | 2018-03-09 16:37 | PN ---
Psychiatric Progress Note Vital Signs: Vital Signs Period Temp Pulse Resp BP Sys/Moreno Pulse Ox Last 24 Hr 98.1 F 87 18-18 113/77 Date of Session: 03/09/18 Chief Complaint:: adjustment of medications HPI: Patient addressed cocaine dependence comorbid with Substance induced mood disorder. ROS: DM,GERD,Neuropathy. Current Medications: Active Medications Generic Name Dose Route Start Last Admin Trade Name Freq PRN Reason Stop Dose Admin Acetaminophen 650 mg 03/02/18 20:14 Tylenol - PO Q4H PRN FEVER Al Hydroxide/Mg Hydroxide 30 ml 03/02/18 20:14 03/09/18 06:21 Mylanta Oral Suspension - PO 30 ml Q6H PRN Administration DYSPEPSIA Atorvastatin Calcium 40 mg 03/02/18 22:00 03/08/18 21:42 Lipitor - PO 40 mg HS JEFE Administration Colloidal Oatmeal 1 applic 03/03/18 13:19 Aveeno Soap - TP DAILY PRN HYGEINE Eucalyptus/Menthol/Phenol/Sorbitol 1 each 03/02/18 20:14 Cepastat Lozenge - MM Q4H PRN SORE THROAT Gabapentin 800 mg 03/02/18 22:00 03/09/18 14:13 Neurontin - PO 800 mg TID JEFE Administration Guaifenesin 10 ml 03/02/18 20:14 Robitussin Dm - PO Q6H PRN COUGH Hydrochlorothiazide 25 mg 03/03/18 10:00 03/09/18 10:11 Hctz - PO 25 mg DAILY JEFE Administration Hydroxyzine Pamoate 50 mg 03/02/18 20:14 Vistaril - PO Q4H PRN AGITATION Ibuprofen 400 mg 03/02/18 20:14 03/07/18 21:42 Motrin - PO 400 mg Q6H PRN Administration Pain level 4-6 Insulin Aspart 15 units 03/04/18 07:11 03/09/18 11:50 Novolog Vial SQ 15 units TIDAC JEFE Administration Protocol Insulin Detemir 80 units 03/02/18 22:00 03/08/18 22:15 Levemir Vial SQ Not Given HS JEFE Lisinopril 10 mg 03/03/18 10:00 03/09/18 10:11 Prinivil PO 10 mg DAILY JEFE Administration Loperamide HCl 4 mg 03/02/18 20:14 Imodium - PO Q6H PRN DIARRHEA Magnesium Citrate 300 ml 03/02/18 20:14 Citroma - PO Q48H PRN CONSTIPATION Magnesium Hydroxide 30 ml 03/02/18 20:14 Milk Of Magnesia - PO DAILY PRN CONSTIPATION Melatonin 5 mg 03/02/18 22:00 Melatonin PO HS PRN INSOMNIA Metformin HCl 500 mg 03/03/18 07:00 03/09/18 06:15 Glucophage - PO 500 mg BIDAC JEFE Administration Multivit/Folic Acid/Iron 1 tab 03/03/18 10:00 03/09/18 10:11 Vitamins (Sjr) - PO 1 tab DAILY JEFE Administration Pseudoephedrine/Triprolidine 1 combo 03/02/18 20:14 Actifed - PO TID PRN NASAL CONGESTION Quetiapine Fumarate 300 mg 03/04/18 22:00 03/08/18 21:42 Seroquel - PO 300 mg HS JEFE Administration Ranitidine HCl 150 mg 03/09/18 22:00 Zantac - PO BID JEFE Thiamine HCl 100 mg 03/02/18 22:00 03/08/18 21:43 Vitamin B1 - PO 100 mg HS JEFE Administration Trazodone HCl 100 mg 03/04/18 22:00 03/08/18 21:42 Desyrel - PO 100 mg HS JEFE Administration Current Side Effect: No Lab tests ordered: No Lab tests reviewed: Yes Provider note:: Chart was revuewed,'s notes appreciated.Recent depakote level showed abnormal value :115.patient is Depakote 1000 mg po bid.he reports no mood instability,not depressed,not hypomanic.patient is willing to reduce depakote dose since he was doing well on 500 mg po bid. Properties of Depakote has been discussed including side effects,benefits and dose adjustment. Depakote 1000 mg po bid will be adjusted to 1000 mg po am and 500 mg po hs. Supportive therapy provided. Total face to face time:: 30 Mental Status Exam - Mental Status Exam Alert and Oriented to: Time, Place, Person Cognitive Function: Grossly Intact Patient Appearance: Well Groomed Mood: Euthymic Affect: Appropriate, Mood Congruent Patient Behavior: Cooperative Speech Pattern: Clear Voice Loudness: Normal Thought Process: Goal Oriented Thought Disorder: Not Present Hallucinations: Denies Suicidal Ideation: Denies Homicidal Ideation: Denies Insight/Judgement: Fair Sleep: Fair Appetite: Fair Muscle strength/Tone: Normal Gait/Station: Normal Psychiatric Treatment Plan - Problem List (1) Cocaine dependence Current Visit: Yes (2) Substance-induced sleep disorder Current Visit: Yes (3) DM Diabetes mellitus type 2 Current Visit: Yes (4) Gastroesophageal reflux disease Current Visit: Yes (5) Hyperlipidemia Current Visit: Yes Qualifiers: Hyperlipidemia type: pure hypercholesterolemia Qualified Code(s): E78.00 - Pure hypercholesterolemia, unspecified; E78.0 - Pure hypercholesterolemia (6) Neuropathy Current Visit: Yes (7) Substance induced mood disorder Current Visit: Yes Comment: COMPLAINT OF HX/O DEPRESSION/ ANXIETY/BIPOLAR
[2018-03-09] MEDS: INSULIN (LEVEMIR) 100 UNITS/ML UNITS SQ SCH (21:26)
[2018-03-09] MEDS: THIAMINE HCL 100 MG TABLET (FP) PO SCH (21:27)
[2018-03-09] MEDS: QUEtiapine FUMARATE 300 MG TABLET PO SCH (21:27)
[2018-03-09] MEDS: RANITIDINE HCL 150 MG TABLET (FP) PO SCH (21:27)
[2018-03-09] MEDS: ATORVASTATIN CA 40 MG TABLET (FP) PO SCH (21:27)
[2018-03-09] MEDS: traZODone HCL 100 MG TABLET (FP) PO SCH (21:27)
[2018-03-10] MEDS: metFORMIN HCL 500 MG TABLET (FP) PO SCH ×2 (06:47→16:50)
[2018-03-10] MEDS: GABAPENTIN 400 MG CAPSULE (FP) PO SCH ×3 (06:47→21:28)
[2018-03-10] MEDS: INSULIN (NOVOLOG) ASPART 100 UNITS/ML 10ML VIAL SQ SCH ×3 (06:53→16:51)
[2018-03-10] MEDS: PRENATAL VITAMINS W/ FOLIC ACID TABLET (FP) PO SCH (10:11)
[2018-03-10] MEDS: HYDROCHLOROTHIAZIDE 25 MG TABLET (FP) PO SCH (10:11)
[2018-03-10] MEDS: LISINOPRIL 10 MG TABLET (FP) PO SCH (10:11)
[2018-03-10] MEDS: RANITIDINE HCL 150 MG TABLET (FP) PO SCH ×2 (10:12→21:29)
[2018-03-10] MEDS: DIVALPROEX SODIUM 500 MG TABLET E.C. PO SCH ×2 (10:13→21:29)
[2018-03-10] MEDS ORDERED: INSULIN (NOVOLOG) ASPART 100 UNITS/ML 10ML VIAL ONE (11:52)
[2018-03-10] MEDS: IBUPROFEN 400 MG TABLET (FP) PO PRN (21:28)
[2018-03-10] MEDS: traZODone HCL 100 MG TABLET (FP) PO SCH (21:29)
[2018-03-10] MEDS: QUEtiapine FUMARATE 300 MG TABLET PO SCH (21:29)
[2018-03-10] MEDS: ATORVASTATIN CA 40 MG TABLET (FP) PO SCH (21:29)
[2018-03-10] MEDS: THIAMINE HCL 100 MG TABLET (FP) PO SCH (21:30)
[2018-03-10] MEDS: INSULIN (LEVEMIR) 100 UNITS/ML UNITS SQ SCH (22:02)
[2018-03-11] MEDS: metFORMIN HCL 500 MG TABLET (FP) PO SCH ×2 (06:50→17:01)
[2018-03-11] MEDS: GABAPENTIN 400 MG CAPSULE (FP) PO SCH ×3 (06:50→21:46)
[2018-03-11] MEDS: INSULIN (NOVOLOG) ASPART 100 UNITS/ML 10ML VIAL SQ SCH ×3 (06:55→17:02)
[2018-03-11] MEDS: LISINOPRIL 10 MG TABLET (FP) PO SCH (10:25)
[2018-03-11] MEDS: PRENATAL VITAMINS W/ FOLIC ACID TABLET (FP) PO SCH (10:25)
[2018-03-11] MEDS: HYDROCHLOROTHIAZIDE 25 MG TABLET (FP) PO SCH (10:25)
[2018-03-11] MEDS: RANITIDINE HCL 150 MG TABLET (FP) PO SCH ×2 (10:25→21:46)
[2018-03-11] MEDS: DIVALPROEX SODIUM 500 MG TABLET E.C. PO SCH ×2 (10:25→21:46)
[2018-03-11] MEDS ORDERED: INSULIN (NOVOLOG) ASPART 100 UNITS/ML 10ML VIAL ONE (11:49)
[2018-03-11] MEDS: THIAMINE HCL 100 MG TABLET (FP) PO SCH (21:45)
[2018-03-11] MEDS: ATORVASTATIN CA 40 MG TABLET (FP) PO SCH (21:46)
[2018-03-11] MEDS: traZODone HCL 100 MG TABLET (FP) PO SCH (21:46)
[2018-03-11] MEDS: QUEtiapine FUMARATE 300 MG TABLET PO SCH (21:46)
[2018-03-11] MEDS: INSULIN (LEVEMIR) 100 UNITS/ML UNITS SQ SCH (21:47)
[2018-03-12] MEDS: metFORMIN HCL 500 MG TABLET (FP) PO SCH ×2 (06:49→16:59)
[2018-03-12] MEDS: GABAPENTIN 400 MG CAPSULE (FP) PO SCH ×3 (06:49→21:16)
[2018-03-12] MEDS: INSULIN (NOVOLOG) ASPART 100 UNITS/ML 10ML VIAL SQ SCH ×3 (07:08→16:56)
[2018-03-12] MEDS: PRENATAL VITAMINS W/ FOLIC ACID TABLET (FP) PO SCH (10:34)
[2018-03-12] MEDS: LISINOPRIL 10 MG TABLET (FP) PO SCH (10:34)
[2018-03-12] MEDS: DIVALPROEX SODIUM 500 MG TABLET E.C. PO SCH ×2 (10:34→21:17)
[2018-03-12] MEDS: RANITIDINE HCL 150 MG TABLET (FP) PO SCH ×2 (10:35→21:17)
[2018-03-12] MEDS: HYDROCHLOROTHIAZIDE 25 MG TABLET (FP) PO SCH (10:35)
[2018-03-12] MEDS: QUEtiapine FUMARATE 300 MG TABLET PO SCH (21:16)
[2018-03-12] MEDS: traZODone HCL 100 MG TABLET (FP) PO SCH (21:17)
[2018-03-12] MEDS: ATORVASTATIN CA 40 MG TABLET (FP) PO SCH (21:17)
[2018-03-12] MEDS: THIAMINE HCL 100 MG TABLET (FP) PO SCH (21:17)
[2018-03-12] MEDS: INSULIN (LEVEMIR) 100 UNITS/ML UNITS SQ SCH (21:19)
[2018-03-13] MEDS: metFORMIN HCL 500 MG TABLET (FP) PO SCH ×2 (06:25→16:53)
[2018-03-13] MEDS: GABAPENTIN 400 MG CAPSULE (FP) PO SCH ×3 (06:27→21:22)
[2018-03-13] MEDS: INSULIN (NOVOLOG) ASPART 100 UNITS/ML 10ML VIAL SQ SCH ×3 (06:29→16:54)
[2018-03-13] MEDS: DIVALPROEX SODIUM 500 MG TABLET E.C. PO SCH ×2 (10:00→21:22)
[2018-03-13] MEDS: HYDROCHLOROTHIAZIDE 25 MG TABLET (FP) PO SCH (10:29)
[2018-03-13] MEDS: PRENATAL VITAMINS W/ FOLIC ACID TABLET (FP) PO SCH (10:29)
[2018-03-13] MEDS: LISINOPRIL 10 MG TABLET (FP) PO SCH (10:29)
[2018-03-13] MEDS: RANITIDINE HCL 150 MG TABLET (FP) PO SCH ×2 (10:33→21:22)
[2018-03-13] MEDS: QUEtiapine FUMARATE 300 MG TABLET PO SCH (21:22)
[2018-03-13] MEDS: traZODone HCL 100 MG TABLET (FP) PO SCH (21:22)
[2018-03-13] MEDS: THIAMINE HCL 100 MG TABLET (FP) PO SCH (21:22)
[2018-03-13] MEDS: ATORVASTATIN CA 40 MG TABLET (FP) PO SCH (21:22)
[2018-03-13] MEDS: INSULIN (LEVEMIR) 100 UNITS/ML UNITS SQ SCH (21:23)
[2018-03-14] MEDS: metFORMIN HCL 500 MG TABLET (FP) PO SCH ×2 (06:52→17:03)
[2018-03-14] MEDS: GABAPENTIN 400 MG CAPSULE (FP) PO SCH ×3 (06:52→21:37)
[2018-03-14] MEDS: INSULIN (NOVOLOG) ASPART 100 UNITS/ML 10ML VIAL SQ SCH ×3 (06:56→17:03)
[2018-03-14] MEDS: RANITIDINE HCL 150 MG TABLET (FP) PO SCH ×2 (10:07→21:37)
[2018-03-14] MEDS: PRENATAL VITAMINS W/ FOLIC ACID TABLET (FP) PO SCH (10:07)
[2018-03-14] MEDS: LISINOPRIL 10 MG TABLET (FP) PO SCH (10:07)
[2018-03-14] MEDS: DIVALPROEX SODIUM 500 MG TABLET E.C. PO SCH ×2 (10:07→21:37)
[2018-03-14] MEDS: HYDROCHLOROTHIAZIDE 25 MG TABLET (FP) PO SCH (10:07)
[2018-03-14] MEDS: traZODone HCL 100 MG TABLET (FP) PO SCH (21:37)
[2018-03-14] MEDS: QUEtiapine FUMARATE 300 MG TABLET PO SCH (21:37)
[2018-03-14] MEDS: THIAMINE HCL 100 MG TABLET (FP) PO SCH (21:37)
[2018-03-14] MEDS: INSULIN (LEVEMIR) 100 UNITS/ML UNITS SQ SCH (21:39)
[2018-03-14] MEDS: ATORVASTATIN CA 40 MG TABLET (FP) PO SCH (22:31)
[2018-03-15] MEDS: GABAPENTIN 400 MG CAPSULE (FP) PO SCH ×3 (06:08→21:49)
[2018-03-15] MEDS: metFORMIN HCL 500 MG TABLET (FP) PO SCH ×2 (06:08→16:36)
[2018-03-15] MEDS: INSULIN (NOVOLOG) ASPART 100 UNITS/ML 10ML VIAL SQ SCH ×3 (08:00→16:36)
[2018-03-15] MEDS: LISINOPRIL 10 MG TABLET (FP) PO SCH (10:13)
[2018-03-15] MEDS: DIVALPROEX SODIUM 500 MG TABLET E.C. PO SCH ×2 (10:13→21:49)
[2018-03-15] MEDS: HYDROCHLOROTHIAZIDE 25 MG TABLET (FP) PO SCH (10:13)
[2018-03-15] MEDS: PRENATAL VITAMINS W/ FOLIC ACID TABLET (FP) PO SCH (10:13)
[2018-03-15] MEDS: RANITIDINE HCL 150 MG TABLET (FP) PO SCH ×2 (10:13→21:49)
[2018-03-15] MEDS: QUEtiapine FUMARATE 300 MG TABLET PO SCH (21:49)
[2018-03-15] MEDS: traZODone HCL 100 MG TABLET (FP) PO SCH (21:49)
[2018-03-15] MEDS: THIAMINE HCL 100 MG TABLET (FP) PO SCH (21:51)
[2018-03-15] MEDS: INSULIN (LEVEMIR) 100 UNITS/ML UNITS SQ SCH (21:52)
[2018-03-15] MEDS: ATORVASTATIN CA 40 MG TABLET (FP) PO SCH (23:03)
[2018-03-16] MEDS: GABAPENTIN 400 MG CAPSULE (FP) PO SCH ×3 (06:19→21:00)
[2018-03-16] MEDS: metFORMIN HCL 500 MG TABLET (FP) PO SCH ×2 (06:21→16:52)
[2018-03-16] MEDS ORDERED: INSULIN (NOVOLOG) ASPART 100 UNITS/ML 10ML VIAL ONE ×2 (08:40→12:01)
[2018-03-16] MEDS: INSULIN (NOVOLOG) ASPART 100 UNITS/ML 10ML VIAL SQ SCH ×3 (08:40→16:52)
[2018-03-16] MEDS: RANITIDINE HCL 150 MG TABLET (FP) PO SCH ×2 (10:07→21:01)
[2018-03-16] MEDS: PRENATAL VITAMINS W/ FOLIC ACID TABLET (FP) PO SCH (10:07)
[2018-03-16] MEDS: DIVALPROEX SODIUM 500 MG TABLET E.C. PO SCH ×2 (10:08→21:00)
[2018-03-16] MEDS: HYDROCHLOROTHIAZIDE 25 MG TABLET (FP) PO SCH (10:08)
[2018-03-16] MEDS: LISINOPRIL 10 MG TABLET (FP) PO SCH (10:08)
[2018-03-16] MEDS: traZODone HCL 100 MG TABLET (FP) PO SCH (21:00)
[2018-03-16] MEDS: QUEtiapine FUMARATE 300 MG TABLET PO SCH (21:00)
[2018-03-16] MEDS: THIAMINE HCL 100 MG TABLET (FP) PO SCH (21:01)
[2018-03-16] MEDS: ATORVASTATIN CA 40 MG TABLET (FP) PO SCH (21:01)
[2018-03-16] MEDS: INSULIN (LEVEMIR) 100 UNITS/ML UNITS SQ SCH (21:01)
[2018-03-17] MEDS: metFORMIN HCL 500 MG TABLET (FP) PO SCH ×2 (06:11→17:05)
[2018-03-17] MEDS: GABAPENTIN 400 MG CAPSULE (FP) PO SCH ×3 (06:11→21:31)
[2018-03-17] MEDS: INSULIN (NOVOLOG) ASPART 100 UNITS/ML 10ML VIAL SQ SCH ×3 (06:12→17:05)
[2018-03-17] MEDS: PRENATAL VITAMINS W/ FOLIC ACID TABLET (FP) PO SCH (10:23)
[2018-03-17] MEDS: RANITIDINE HCL 150 MG TABLET (FP) PO SCH ×2 (10:23→21:31)
[2018-03-17] MEDS: LISINOPRIL 10 MG TABLET (FP) PO SCH (10:23)
[2018-03-17] MEDS: HYDROCHLOROTHIAZIDE 25 MG TABLET (FP) PO SCH (10:23)
[2018-03-17] MEDS: DIVALPROEX SODIUM 500 MG TABLET E.C. PO SCH ×2 (10:23→21:31)
[2018-03-17] MEDS: IBUPROFEN 400 MG TABLET (FP) PO PRN (19:41)
[2018-03-17] MEDS: QUEtiapine FUMARATE 300 MG TABLET PO SCH (21:31)
[2018-03-17] MEDS: traZODone HCL 100 MG TABLET (FP) PO SCH (21:31)
[2018-03-17] MEDS: ATORVASTATIN CA 40 MG TABLET (FP) PO SCH (21:31)
[2018-03-17] MEDS: THIAMINE HCL 100 MG TABLET (FP) PO SCH (21:32)
[2018-03-17] MEDS: INSULIN (LEVEMIR) 100 UNITS/ML UNITS SQ SCH (21:33)
[2018-03-18] MEDS: GABAPENTIN 400 MG CAPSULE (FP) PO SCH ×3 (06:41→21:28)
[2018-03-18] MEDS: metFORMIN HCL 500 MG TABLET (FP) PO SCH ×2 (06:41→16:53)
[2018-03-18] MEDS: INSULIN (NOVOLOG) ASPART 100 UNITS/ML 10ML VIAL SQ SCH ×3 (06:44→16:53)
[2018-03-18] MEDS: PRENATAL VITAMINS W/ FOLIC ACID TABLET (FP) PO SCH (10:15)
[2018-03-18] MEDS: RANITIDINE HCL 150 MG TABLET (FP) PO SCH ×2 (10:16→21:28)
[2018-03-18] MEDS: LISINOPRIL 10 MG TABLET (FP) PO SCH (10:16)
[2018-03-18] MEDS: DIVALPROEX SODIUM 500 MG TABLET E.C. PO SCH ×2 (10:16→21:28)
[2018-03-18] MEDS: HYDROCHLOROTHIAZIDE 25 MG TABLET (FP) PO SCH (10:16)
[2018-03-18] MEDS: INSULIN (LEVEMIR) 100 UNITS/ML UNITS SQ SCH (21:28)
[2018-03-18] MEDS: traZODone HCL 100 MG TABLET (FP) PO SCH (21:28)
[2018-03-18] MEDS: THIAMINE HCL 100 MG TABLET (FP) PO SCH (21:28)
[2018-03-18] MEDS: ATORVASTATIN CA 40 MG TABLET (FP) PO SCH (21:28)
[2018-03-18] MEDS: QUEtiapine FUMARATE 300 MG TABLET PO SCH (21:28)
[2018-03-19] MEDS: GABAPENTIN 400 MG CAPSULE (FP) PO SCH ×3 (06:52→21:34)
[2018-03-19] MEDS: metFORMIN HCL 500 MG TABLET (FP) PO SCH ×2 (06:52→17:11)
[2018-03-19] MEDS: INSULIN (NOVOLOG) ASPART 100 UNITS/ML 10ML VIAL SQ SCH ×3 (07:36→17:12)
[2018-03-19] MEDS: LISINOPRIL 10 MG TABLET (FP) PO SCH (10:24)
[2018-03-19] MEDS: DIVALPROEX SODIUM 500 MG TABLET E.C. PO SCH ×2 (10:25→21:34)
[2018-03-19] MEDS: PRENATAL VITAMINS W/ FOLIC ACID TABLET (FP) PO SCH (10:25)
[2018-03-19] MEDS: HYDROCHLOROTHIAZIDE 25 MG TABLET (FP) PO SCH (10:25)
[2018-03-19] MEDS: RANITIDINE HCL 150 MG TABLET (FP) PO SCH ×2 (10:26→21:34)
[2018-03-19] MEDS: INSULIN (LEVEMIR) 100 UNITS/ML UNITS SQ SCH (21:32)
[2018-03-19] MEDS: THIAMINE HCL 100 MG TABLET (FP) PO SCH (21:33)
[2018-03-19] MEDS: QUEtiapine FUMARATE 300 MG TABLET PO SCH (21:34)
[2018-03-19] MEDS: traZODone HCL 100 MG TABLET (FP) PO SCH (21:34)
[2018-03-19] MEDS: ATORVASTATIN CA 40 MG TABLET (FP) PO SCH (21:34)
[2018-03-20] MEDS: GABAPENTIN 400 MG CAPSULE (FP) PO SCH ×3 (06:48→21:21)
[2018-03-20] MEDS: metFORMIN HCL 500 MG TABLET (FP) PO SCH ×2 (06:48→16:40)
[2018-03-20] MEDS: INSULIN (NOVOLOG) ASPART 100 UNITS/ML 10ML VIAL SQ SCH ×3 (07:00→16:40)
[2018-03-20] MEDS: DIVALPROEX SODIUM 500 MG TABLET E.C. PO SCH ×2 (10:19→21:21)
[2018-03-20] MEDS: PRENATAL VITAMINS W/ FOLIC ACID TABLET (FP) PO SCH (10:19)
[2018-03-20] MEDS: RANITIDINE HCL 150 MG TABLET (FP) PO SCH ×2 (10:19→21:21)
[2018-03-20] MEDS: HYDROCHLOROTHIAZIDE 25 MG TABLET (FP) PO SCH (10:19)
[2018-03-20] MEDS: LISINOPRIL 10 MG TABLET (FP) PO SCH (10:19)
[2018-03-20] MEDS ORDERED: INSULIN (NOVOLOG) ASPART 100 UNITS/ML 10ML VIAL ONE (12:06)
[2018-03-20] MEDS: INSULIN (LEVEMIR) 100 UNITS/ML UNITS SQ SCH (21:20)
[2018-03-20] MEDS: THIAMINE HCL 100 MG TABLET (FP) PO SCH (21:21)
[2018-03-20] MEDS: traZODone HCL 100 MG TABLET (FP) PO SCH (21:21)
[2018-03-20] MEDS: QUEtiapine FUMARATE 300 MG TABLET PO SCH (21:21)
[2018-03-20] MEDS: ATORVASTATIN CA 40 MG TABLET (FP) PO SCH (21:21)
[2018-03-21] MEDS: metFORMIN HCL 500 MG TABLET (FP) PO SCH ×2 (06:52→16:37)
[2018-03-21] MEDS: GABAPENTIN 400 MG CAPSULE (FP) PO SCH ×3 (06:52→22:11)
[2018-03-21] MEDS: INSULIN (NOVOLOG) ASPART 100 UNITS/ML 10ML VIAL SQ SCH ×3 (06:54→16:38)
[2018-03-21] MEDS: RANITIDINE HCL 150 MG TABLET (FP) PO SCH ×2 (10:08→22:11)
[2018-03-21] MEDS: DIVALPROEX SODIUM 500 MG TABLET E.C. PO SCH ×2 (10:08→22:11)
[2018-03-21] MEDS: LISINOPRIL 10 MG TABLET (FP) PO SCH (10:08)
[2018-03-21] MEDS: HYDROCHLOROTHIAZIDE 25 MG TABLET (FP) PO SCH (10:08)
[2018-03-21] MEDS: PRENATAL VITAMINS W/ FOLIC ACID TABLET (FP) PO SCH (10:09)
[2018-03-21] MEDS ORDERED: INSULIN (NOVOLOG) ASPART 100 UNITS/ML 10ML VIAL ONE (11:51)
[2018-03-21] MEDS: QUEtiapine FUMARATE 300 MG TABLET PO SCH (22:11)
[2018-03-21] MEDS: THIAMINE HCL 100 MG TABLET (FP) PO SCH (22:11)
[2018-03-21] MEDS: ATORVASTATIN CA 40 MG TABLET (FP) PO SCH (22:11)
[2018-03-21] MEDS: traZODone HCL 100 MG TABLET (FP) PO SCH (22:11)
[2018-03-21] MEDS: INSULIN (LEVEMIR) 100 UNITS/ML UNITS SQ SCH (22:17)
[2018-03-22] MEDS: GABAPENTIN 400 MG CAPSULE (FP) PO SCH ×3 (05:47→21:23)
[2018-03-22] MEDS: INSULIN (NOVOLOG) ASPART 100 UNITS/ML 10ML VIAL SQ SCH ×3 (07:06→16:40)
[2018-03-22] MEDS: metFORMIN HCL 500 MG TABLET (FP) PO SCH ×2 (07:06→16:41)
[2018-03-22] MEDS: DIVALPROEX SODIUM 500 MG TABLET E.C. PO SCH ×2 (09:53→21:23)
[2018-03-22] MEDS: PRENATAL VITAMINS W/ FOLIC ACID TABLET (FP) PO SCH (09:53)
[2018-03-22] MEDS: RANITIDINE HCL 150 MG TABLET (FP) PO SCH ×2 (09:53→21:23)
[2018-03-22] MEDS: HYDROCHLOROTHIAZIDE 25 MG TABLET (FP) PO SCH (09:53)
[2018-03-22] MEDS: LISINOPRIL 10 MG TABLET (FP) PO SCH (09:54)
[2018-03-22] MEDS: THIAMINE HCL 100 MG TABLET (FP) PO SCH (21:21)
[2018-03-22] MEDS: INSULIN (LEVEMIR) 100 UNITS/ML UNITS SQ SCH (21:21)
[2018-03-22] MEDS: traZODone HCL 100 MG TABLET (FP) PO SCH (21:23)
[2018-03-22] MEDS: QUEtiapine FUMARATE 300 MG TABLET PO SCH (21:23)
[2018-03-22] MEDS: ATORVASTATIN CA 40 MG TABLET (FP) PO SCH (21:23)
[2018-03-22] MEDS: IBUPROFEN 400 MG TABLET (FP) PO PRN (21:23)
[2018-03-23] MEDS: GABAPENTIN 400 MG CAPSULE (FP) PO SCH ×3 (05:57→21:38)
[2018-03-23] MEDS: MAG HYDROX/AL HYDROX/SIMETH 30 ML UNIT-DOSE CUP PO PRN ×2 (05:58→19:02)
[2018-03-23] MEDS: metFORMIN HCL 500 MG TABLET (FP) PO SCH ×2 (07:51→17:01)
[2018-03-23] MEDS: INSULIN (NOVOLOG) ASPART 100 UNITS/ML 10ML VIAL SQ SCH ×3 (07:52→17:01)
[2018-03-23] MEDS: DIVALPROEX SODIUM 500 MG TABLET E.C. PO SCH ×2 (10:30→21:39)
[2018-03-23] MEDS: RANITIDINE HCL 150 MG TABLET (FP) PO SCH ×2 (10:30→21:38)
[2018-03-23] MEDS: HYDROCHLOROTHIAZIDE 25 MG TABLET (FP) PO SCH (10:30)
[2018-03-23] MEDS: LISINOPRIL 10 MG TABLET (FP) PO SCH (10:31)
[2018-03-23] MEDS: PRENATAL VITAMINS W/ FOLIC ACID TABLET (FP) PO SCH (10:31)
[2018-03-23] MEDS: QUEtiapine FUMARATE 300 MG TABLET PO SCH (21:38)
[2018-03-23] MEDS: traZODone HCL 100 MG TABLET (FP) PO SCH (21:38)
[2018-03-23] MEDS: THIAMINE HCL 100 MG TABLET (FP) PO SCH (21:38)
[2018-03-23] MEDS: ATORVASTATIN CA 40 MG TABLET (FP) PO SCH (21:38)
[2018-03-23] MEDS: INSULIN (LEVEMIR) 100 UNITS/ML UNITS SQ SCH (21:40)
[2018-03-24] MEDS: GABAPENTIN 400 MG CAPSULE (FP) PO SCH ×3 (05:57→21:22)
[2018-03-24] MEDS: metFORMIN HCL 500 MG TABLET (FP) PO SCH ×2 (06:58→16:50)
[2018-03-24] MEDS: INSULIN (NOVOLOG) ASPART 100 UNITS/ML 10ML VIAL SQ SCH ×3 (08:18→16:51)
[2018-03-24] MEDS: RANITIDINE HCL 150 MG TABLET (FP) PO SCH ×2 (09:59→21:22)
[2018-03-24] MEDS: DIVALPROEX SODIUM 500 MG TABLET E.C. PO SCH ×2 (09:59→21:22)
[2018-03-24] MEDS: PRENATAL VITAMINS W/ FOLIC ACID TABLET (FP) PO SCH (09:59)
[2018-03-24] MEDS: LISINOPRIL 10 MG TABLET (FP) PO SCH (09:59)
[2018-03-24] MEDS: HYDROCHLOROTHIAZIDE 25 MG TABLET (FP) PO SCH (09:59)
[2018-03-24] MEDS: THIAMINE HCL 100 MG TABLET (FP) PO SCH (21:22)
[2018-03-24] MEDS: QUEtiapine FUMARATE 300 MG TABLET PO SCH (21:22)
[2018-03-24] MEDS: traZODone HCL 100 MG TABLET (FP) PO SCH (21:22)
[2018-03-24] MEDS: ATORVASTATIN CA 40 MG TABLET (FP) PO SCH (21:22)
[2018-03-24] MEDS: INSULIN (LEVEMIR) 100 UNITS/ML UNITS SQ SCH (21:23)
[2018-03-25] MEDS: GABAPENTIN 400 MG CAPSULE (FP) PO SCH (06:18)
[2018-03-25] MEDS: metFORMIN HCL 500 MG TABLET (FP) PO SCH (06:18)
[2018-03-25 06:46] VITALS: TEMP 97.6
[2018-03-25] MEDS: INSULIN (NOVOLOG) ASPART 100 UNITS/ML 10ML VIAL SQ SCH (07:54)
--- NOTE | 2018-03-25 09:59 | PN ---
[facility] Progress Note Note: Patient completed treatment today(early discharge).He has met his treatment goals partially.Patient will continue to address his issues on outpatient basis.He will continue current medications as per plan,scripts for 30 days provided. Patient is stable for discharge today.
[2018-03-25] MEDS: DIVALPROEX SODIUM 500 MG TABLET E.C. PO SCH (10:06)
[2018-03-25] MEDS: RANITIDINE HCL 150 MG TABLET (FP) PO SCH (10:06)
[2018-03-25] MEDS: HYDROCHLOROTHIAZIDE 25 MG TABLET (FP) PO SCH (10:06)
[2018-03-25] MEDS: LISINOPRIL 10 MG TABLET (FP) PO SCH (10:06)
[2018-03-25] MEDS: PRENATAL VITAMINS W/ FOLIC ACID TABLET (FP) PO SCH (10:06)
[2018-03-25 10:11] VITALS: BP 120/81; PULSE 77
== END 2018-03-25 10:55 | disposition home or self-care (01) | DRG 895 ==
LOC: YASAS 15:22 → Y5N 18:56
PROVIDERS: ADMIT Psychiatry & Neurology Psychiatry; ATTEND Psychiatry & Neurology Psychiatry
PROC: HZ42ZZZ Group Counseling for Substance Abuse Treatment, Cognitive-Behavioral (ICD-10-PCS; principal; 2018-03-02)
DX: F14.20 Cocaine dependence, uncomplicated (principal); F19.282 Other psychoactive substance dependence with psychoactive substance-induced sleep disorder; F31.81 Bipolar II disorder; F19.24 Other psychoactive substance dependence with psychoactive substance-induced mood disorder; F25.9 Schizoaffective disorder, unspecified; E11.9 Type 2 diabetes mellitus without complications; K21.9 Gastro-esophageal reflux disease without esophagitis; E78.5 Hyperlipidemia, unspecified; G62.9 Polyneuropathy, unspecified; Z91.013 Allergy to seafood; Z79.4 Long term (current) use of insulin
CPT/HCPCS: 36415; 80053; 80164; 81003; 82962; 85027; 86593; 93005; 93010

== ENCOUNTER 2018-08-28 12:02 | Inpatient (IN) | payer OTHER ==
[2018-08-28 12:25] VITALS: BMI 26.6
--- NOTE | 2018-08-28 16:49 | HP ---
"CIWA Score - Admission Criteria OASAS Guidelines: Admission for Medically Managed Detox: Requires at least one of the followin. CIWA greater than 12 2. Seizures within the past 24 hours 3. Delirium tremens within the past 24 hours 4. Hallucinations within the past 24 hours 5. Acute intervention needed for co occurring medical disorder 6. Acute intervention needed for co occurring psychiatric disorder 7. Severe withdrawal that cannot be handled at a lower level of care (continued vomiting, continued diarrhea, abnormal vital signs) requiring intravenous medication and/or fluids 8. Admission ROS [facility] Chief Complaint: Here for rehab for cocaine use disorder. Allergies/Adverse Reactions: Allergies Allergy/AdvReac Type Severity Reaction Status Date / Time Fish Containing Products Allergy Severe Hives Verified 08/28/18 14:17 shellfish derived Allergy Severe Hives Verified 08/28/18 14:17 No Known Drug Allergies Allergy Verified 08/28/18 14:17 History of Present Illness: Here for detox from rehab. Cocaine use since age 17. (Intranasal) Came from home. Has been trying to stop on own but unable to. Occ nose bleeds. Longest length of sobriety 5 years. (about 20 years ago. Hx: HTN and DM. Hx: Depressio and anxiety. Denies thoughts of harming self or others. On mental health medications. Continues to f/u w/ own MH provider. Search Terms: Grady Lugo, 1960 Search Date: 08/28/2018 05:02:20 PM The Drug Utilization Report below displays all of the controlled substance prescriptions, if any, that your patient has filled in the last twelve months. The information displayed on this report is compiled from pharmacy submissions to the Department, and accurately reflects the information as submitted by the pharmacies. This report was requested by: Jalyn Bradshaw | Reference #: [id number] There are no results for the search terms that you entered. Exam Limitations: No Limitations - Ebola screening Have you traveled outside of the country in the last 21 days: No Have you had contact with anyone from an Ebola affected area: No Have you been sick,other than usual withdrawal symptoms: No Do you have a fever: No - Review of Systems Constitutional: No Symptoms Reported EENT: reports: Blurred Vision, Nose Bleeding ([place].) Cardiac: reports: No Symptoms Reported GI: reports: No Symptoms Reported : reports: Frequency (4 x/ night nocturia. Denies burning, pain or blood w/ urination. Encouraged to f/u w/ provider on discharge) Musculoskeletal: reports: No Symptoms Reported Integumentary: reports: No Symptoms Reported Neuro: reports: No Symptoms reported Endocrine: reports: Increased Thirst Hematology: reports: No Symptoms Reported Psychiatric: reports: Judgement Intact, Orientated x3, Anxious, Depressed ( Denies thoughts of harming self or others. On mental health medications.) Patient History - Patient Medical History Hx Anemia: No Hx Asthma: No Hx Chronic Obstructive Pulmonary Disease (COPD): No Hx Cancer: No Hx Cardiac Disorders: No Hx Congestive Heart Failure: No Hx Hypertension: Yes (Compliant w/ meds) Hx Hypercholesterolemia: Yes Hx Pacemaker: No HX Cerebrovascular Accident: No Hx Seizures: No Hx Dementia: No Hx Diabetes: Yes Hx Gastrointestinal Disorders: Yes (acid reflux) Hx Liver Disease: No Hx Genitourinary Disorders: No Hx Sexually Transmitted Disorders: No Hx Renal Disease (ESRD): No Hx Thyroid Disease: No Hx Human Immunodeficiency Virus (HIV): No Hx Hepatitis C: No Hx Depression: Yes Hx Suicide Attempt: No Hx Bipolar Disorder: Yes Hx Schizophrenia: No - Patient Surgical History Past Surgical History: Yes Hx Neurologic Surgery: No Hx Cataract Extraction: No Hx Cardiac Surgery: No Hx Lung Surgery: No Hx Breast Surgery: No Hx Breast Biopsy: No Hx Abdominal Surgery: No Hx Appendectomy: No Hx Cholecystectomy: No Hx Genitourinary Surgery: No Hx Section: No Hx Orthopedic Surgery: Yes (L knee in 2004) Anesthesia Reaction: No - PPD History Previous Implant?: Yes Documented Results: Negative w/proof Implanted On Prior [facility] Admission?: Yes Date: 03/04/18 Results: 0 mm PPD to be Administered?: No - Smoking Cessation Smoking history: Never smoked Have you smoked in the past 12 months: No Aproximately how many cigarettes per day: 0 Cigars Per Day: 0 Hx Chewing Tobacco Use: No Initiated information on smoking cessation: No - Substance & Tx. History Hx Alcohol Use: No Hx Substance Use: Yes Substance Use Type: Cocaine Hx Substance Use Treatment: Yes (rehab) - Substances Abused Cocaine Route: Inhalation Frequency: Daily Amount used: $100 Age of first use: 17 Date of Last Use: 08/26/18 Family Disease History - Family Disease History Family Disease History: Diabetes: Brother (HTN), Other: Father (alcohol dependence) Admission Physical Exam [facility] - Vital Signs Vital Signs: Vital Signs - 24 hr 08/28/18 12:23 Temperature 98.2 F Pulse Rate 105 H Respiratory 18 Rate Blood Pressure 107/70 - Physical General Appearance: Yes: Nourished, Appropriately Dressed, Anxious HEENTM: Yes: EOMI, Hearing grossly Normal, DAGOBERTO, Pharynx Normal, Other (Dried blood in nasal cavity. 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 No significant changes from 06/05/17 EKG. (6) Bleeding from the nose Current Visit: Yes Status: Chronic Comment: Bleeding stopped. Thin nasal septum Cleared for Admission [facility] - Detox or Rehab Claeared for Rehab Admission: Yes [facility] Breath Alcohol Content Breath Alcohol Content: 0 Urine Drug Screen - Results Drug Screen Negative: No Urine Drug Screen Results: GALINA-Cocaine, BZO-Benzodiazepines Inpatient Rehab Admission - Initial Determination Are CD services needed?: Yes Free of communicable disease: Yes Not in need of hospitalization: Yes - Rehab Admission Criteria Previous failed treatment: Yes Poor recovery environment: Yes Comorbidities: Yes Lacks judgement: No Patient is meeting Inpatient Rehab admission criteria:: Yes"
[2018-08-28] MEDS ORDERED: MAGNESIUM HYDROX 2400MG/30ML ORAL SUSPENSION 30 ML CUP PO PRN (17:31)
[2018-08-28] MEDS ORDERED: hydrOXYzine PAMOATE 50 MG CAPSULE (FP) PO PRN (17:31)
[2018-08-28] MEDS ORDERED: MENTHOL/PHENOL 1 EACH UD MM PRN (17:31)
[2018-08-28] MEDS ORDERED: P-EPHED 60MG/TRIPROLIDI 2.5MG TABLET PO PRN (17:31)
[2018-08-28] MEDS ORDERED: MAGNESIUM CITRATE 300 ML BOTTLE PO PRN (17:31)
[2018-08-28] MEDS ORDERED: ACETAMINOPHEN 325 MG TABLET (FP) PO PRN (17:31)
[2018-08-28] MEDS ORDERED: LOPERAMIDE HCL 2 MG CAPSULE PO PRN (17:31)
[2018-08-28] MEDS: INSULIN (NOVOLOG) ASPART 100 UNITS/ML 10ML VIAL SQ SCH (18:00)
[2018-08-28] MEDS: QUEtiapine FUMARATE 300 MG TABLET PO SCH (21:19)
[2018-08-28] MEDS: GABAPENTIN 400 MG CAPSULE (FP) PO SCH (21:20)
[2018-08-28] MEDS: INSULIN (LEVEMIR) 100 UNITS/ML UNITS SQ SCH (21:22)
[2018-08-28] MEDS: THIAMINE HCL 100 MG TABLET (FP) PO SCH (21:24)
[2018-08-28] MEDS ORDERED: INSULIN DETEMIR 80 UNIT SQ SCH (22:00)
[2018-08-28] MEDS ORDERED: MELATONIN 5 MG TABLETS PO PRN (22:00)
[2018-08-28] MEDS ORDERED: INSULIN (NOVOLOG) ASPART 100 UNITS/ML 10ML VIAL ONE (22:04)
[2018-08-28] MEDS: traZODone HCL 50 MG TABLET (FP) PO SCH (22:10)
[2018-08-29] MEDS: GABAPENTIN 400 MG CAPSULE (FP) PO SCH ×3 (06:10→21:10)
[2018-08-29] MEDS: metFORMIN HCL 500 MG TABLET (FP) PO SCH ×2 (06:33→16:53)
[2018-08-29] MEDS: INSULIN (NOVOLOG) ASPART 100 UNITS/ML 10ML VIAL SQ SCH ×3 (07:39→16:54)
[2018-08-29] MEDS: PRENATAL VITAMINS W/ FOLIC ACID TABLET (FP) PO SCH (10:13)
[2018-08-29] MEDS: PANTOPRAZOLE 40 MG TABLET (FP) PO SCH (10:13)
[2018-08-29 10:37] LABS: HEMATOCRIT 37.3 % (35.4-49); HEMOGLOBIN 12.9 GM/dL (11.7-16.9); MCH 29.4 pg (25.7-33.7); MCHC 34.7 g/dl (32.0-35.9); MEAN CELL VOLUME 84.8 fl (80-96); MEAN PLT VOLUME 8.7 fl (7.5-11.1); PLATELET COUNT 122 K/MM3 (134-434); RDW 13.8 % (11.9-15.9); WHITE BLOOD COUNT 3.5 K/mm3 (4.0-10.0)
[2018-08-29 11:10] LABS: ALBUMIN 3.3 g/dl (3.4-5.0); ALK PHOS 58 U/L (45-117); ANION GAP 9 MMOL/L (8-16); BILIRUBIN,TOTAL 0.6 mg/dL (0.2-1); BLOOD UREA NITROGEN 17 mg/dL (7-18); CALCIUM 8.1 mg/dL (8.5-10.1); CHLORIDE 104 mmol/L (98-107); CO2 27 mmol/L (21-32); CREATININE 0.7 mg/dL (0.55-1.3); GLUCOSE,RANDOM 219 mg/dL (74-106); POTASSIUM 3.3 mmol/L (3.5-5.1); SGOT/AST 14 U/L (15-37); SGPT/ALT 23 U/L (13-61); SODIUM 140 mmol/L (136-145); TOT PROT 6.3 g/dl (6.4-8.2)
[2018-08-29 13:22] LABS: URINE APPEARANCE TURBID; URINE BILIRUBIN NEGATIVE (<2.0 mg/dL); URINE COLOR YELLOW; URINE GLUCOSE (UA) 3+ (NEGATIVE); URINE KETONE TRACE (NEGATIVE); URINE LEUK ESTERASE NEGATIVE (NEGATIVE); URINE NITRITE NEGATIVE (NEGATIVE); URINE PROTEIN 1+ (NEGATIVE); URINE UROBILINOGEN NEGATIVE mg/dL (0.2-1.0)
[2018-08-29 14:06] LABS: URINE BACTERIA RARE /hpf (NONE SEEN); URINE MUCUS MANY
--- NOTE | 2018-08-29 16:53 | EKG ---
Test Reason : Blood Pressure : / mmHG Vent. Rate : 089 BPM Atrial Rate : 089 BPM P-R Int : 154 ms QRS Dur : 106 ms QT Int : 382 ms P-R-T Axes : 054 -44 058 degrees QTc Int : 464 ms NORMAL SINUS RHYTHM LEFT AXIS DEVIATION INCOMPLETE RIGHT BUNDLE BRANCH BLOCK ABNORMAL ECG WHEN COMPARED WITH ECG OF 02-MAR-2018 20:59, INCOMPLETE RIGHT BUNDLE BRANCH BLOCK IS NOW PRESENT Confirmed by Shweta Lay ([id number]) on 08/29/2018 4:53:10 PM Referred By: Confirmed By:Shweta Lay
[2018-08-29] MEDS: traZODone HCL 50 MG TABLET (FP) PO SCH (21:10)
[2018-08-29] MEDS: THIAMINE HCL 100 MG TABLET (FP) PO SCH (21:10)
[2018-08-29] MEDS: QUEtiapine FUMARATE 300 MG TABLET PO SCH (21:10)
[2018-08-29] MEDS: INSULIN (LEVEMIR) 100 UNITS/ML UNITS SQ SCH (21:11)
[2018-08-30] MEDS: GABAPENTIN 400 MG CAPSULE (FP) PO SCH ×3 (06:07→21:04)
[2018-08-30] MEDS: INSULIN (NOVOLOG) ASPART 100 UNITS/ML 10ML VIAL SQ SCH ×3 (07:09→16:49)
[2018-08-30] MEDS: metFORMIN HCL 500 MG TABLET (FP) PO SCH ×2 (07:09→16:47)
[2018-08-30] MEDS: PRENATAL VITAMINS W/ FOLIC ACID TABLET (FP) PO SCH (09:48)
[2018-08-30] MEDS: PANTOPRAZOLE 40 MG TABLET (FP) PO SCH (09:48)
[2018-08-30] MEDS: traZODone HCL 50 MG TABLET (FP) PO SCH (21:04)
[2018-08-30] MEDS: THIAMINE HCL 100 MG TABLET (FP) PO SCH (21:04)
[2018-08-30] MEDS: QUEtiapine FUMARATE 300 MG TABLET PO SCH (21:04)
[2018-08-30] MEDS: INSULIN (LEVEMIR) 100 UNITS/ML UNITS SQ SCH (21:05)
[2018-08-31] MEDS: GABAPENTIN 400 MG CAPSULE (FP) PO SCH ×3 (06:22→22:02)
[2018-08-31] MEDS: metFORMIN HCL 500 MG TABLET (FP) PO SCH ×2 (06:22→16:30)
[2018-08-31] MEDS: INSULIN (NOVOLOG) ASPART 100 UNITS/ML 10ML VIAL SQ SCH ×3 (06:36→19:42)
--- NOTE | 2018-08-31 09:23 | CONSULT ---
[facility] Psychiatric Consult - Data Date of interview: 08/31/18 Admission source: Self-referred Identifying data: Mr Lugo is a 57 years ago male, father of a 26 years old daughter, unemployed on SSD, domiciled seeking detox treatment for cocaine Substance Abuse History: Reports history of cocaine use. He started using it at age 17, consumes $100 worth daily. Most recent use on 08/26/18. Refer to addiction counselor for further information Medical History: Significant for type 2 diabetes, hypertension, GERD, low back pain/sciatica, neuropathy and history of orthosurgery for injury to left knee ( 2004). Psychiatric History: Patient is well known to marketing writer from previous admissions to this facility. Reports that his first psychiatric contact was in 2006 when he was admitted to [facility] for mood dysregulation and SI. He was diagnosed with Schizoaffective Disorder and treated with Seroquel. Reports multiple subsequent admissions to various institutions notably [facility], [facility] and most recently in November [address] [facility] for depression. He was discharged on Depakote 500 mg po BID, Seroquel 300 mg po HS, Trazadone 150 mg po HS, Abilify 10 mg po daily and Zoloft 200 mg po daily and referred to [facility] for aftercare. Told marketing writer that he did not go to aftercare but has been getting med refills through ED, His primary care physician and during admission to inpatient detox/rehab. Prior to this current admission, he was admitted to inpatient rehab at [facility] in [facility] and he was discharged on 08/26/18 on Gabapentin 800 mg po TID, Seroquel 300 mg po HS and Trazaone 150 mg po HS. These medications were ordered by Dr Mendez on 08/28/18. Denies previous suicidal attempt. At present, reports feeling anxious and sleeping poorl Physical/Sexual Abuse/Trauma History: Denies history of emotional, physical or sexual abuse as well as DV relationsip. No service. Receives SSD as result of on the job injury to knee. Additional Comment: Reports history of one misdemeanor arrest Mental Status Exam - Mental Status Exam Alert and Oriented to: Time, Place, Person Cognitive Function: Fair Patient Appearance: Well Groomed Mood: Anxious Affect: Appropriate Patient Behavior: Cooperative Speech Pattern: Clear Voice Loudness: Normal Thought Process: Intact, Goal Oriented Thought Disorder: Not Present Hallucinations: Denies Suicidal Ideation: Denies Homicidal Ideation: Denies Insight/Judgement: Fair Sleep: Poorly Appetite: Good Muscle strength/Tone: Normal Gait/Station: Normal Psychiatric Findings - Problem List ([place] 1, 2,3) (1) Schizoaffective disorder Current Visit: No Status: Chronic Comment: Endorsed by the patient in this interview. (2) Substance-induced anxiety disorder Current Visit: Yes Status: Acute (3) Substance induced mood disorder Current Visit: No Status: Acute Comment: COMPLAINT OF HX/O DEPRESSION/ ANXIETY/BIPOLAR (4) Cocaine dependence Current Visit: Yes Status: Acute (5) DM Diabetes mellitus type 2 Current Visit: Yes Status: Chronic (6) Gastroesophageal reflux disease Current Visit: Yes Status: Chronic (7) Hyperlipidemia Current Visit: No Status: Chronic Qualifiers: Hyperlipidemia type: pure hypercholesterolemia Qualified Code(s): E78.00 - Pure hypercholesterolemia, unspecified; E78.0 - Pure hypercholesterolemia (8) Neuropathy Current Visit: No Status: Chronic - Initial Treatment Plan Initial Treatment Plan: 1) Continue Gabapentin 800 mg po TID, Seroquel 300 mg po HS and Trazadone 150 mg po HS. 2) Continue inpatient rehabilitation
[2018-08-31] MEDS ORDERED: MINERAL OIL/PETROLAT/WATER TOPICAL CREAM 454 GM JAR TP PRN (09:37)
[2018-08-31] MEDS: PRENATAL VITAMINS W/ FOLIC ACID TABLET (FP) PO SCH (10:07)
[2018-08-31] MEDS: PANTOPRAZOLE 40 MG TABLET (FP) PO SCH (10:08)
[2018-08-31] MEDS: IBUPROFEN 400 MG TABLET (FP) PO PRN (13:57)
[2018-08-31] MEDS ORDERED: PT OWN MED DRAWER 7, Y5N ONE (20:46)
[2018-08-31] MEDS: INSULIN (LEVEMIR) 100 UNITS/ML UNITS SQ SCH (22:02)
[2018-08-31] MEDS: THIAMINE HCL 100 MG TABLET (FP) PO SCH (22:02)
[2018-08-31] MEDS: QUEtiapine FUMARATE 300 MG TABLET PO SCH (22:02)
[2018-08-31] MEDS: traZODone HCL 50 MG TABLET (FP) PO SCH (22:02)
[2018-09-01] MEDS: GABAPENTIN 400 MG CAPSULE (FP) PO SCH ×3 (06:20→21:36)
[2018-09-01] MEDS: metFORMIN HCL 500 MG TABLET (FP) PO SCH ×2 (06:20→17:05)
[2018-09-01] MEDS: INSULIN (NOVOLOG) ASPART 100 UNITS/ML 10ML VIAL SQ SCH ×3 (06:21→17:06)
[2018-09-01] MEDS: PRENATAL VITAMINS W/ FOLIC ACID TABLET (FP) PO SCH (10:25)
[2018-09-01] MEDS: PANTOPRAZOLE 40 MG TABLET (FP) PO SCH (10:25)
[2018-09-01] MEDS: traZODone HCL 50 MG TABLET (FP) PO SCH (21:36)
[2018-09-01] MEDS: THIAMINE HCL 100 MG TABLET (FP) PO SCH (21:36)
[2018-09-01] MEDS: QUEtiapine FUMARATE 300 MG TABLET PO SCH (21:36)
[2018-09-01] MEDS: INSULIN (LEVEMIR) 100 UNITS/ML UNITS SQ SCH (21:37)
[2018-09-02] MEDS: GABAPENTIN 400 MG CAPSULE (FP) PO SCH ×3 (06:09→21:05)
[2018-09-02] MEDS: metFORMIN HCL 500 MG TABLET (FP) PO SCH ×2 (07:30→16:48)
[2018-09-02] MEDS: INSULIN (NOVOLOG) ASPART 100 UNITS/ML 10ML VIAL SQ SCH ×3 (07:30→16:48)
[2018-09-02] MEDS: PRENATAL VITAMINS W/ FOLIC ACID TABLET (FP) PO SCH (10:23)
[2018-09-02] MEDS: PANTOPRAZOLE 40 MG TABLET (FP) PO SCH (10:23)
[2018-09-02] MEDS ORDERED: INSULIN (NOVOLOG) ASPART 100 UNITS/ML 10ML VIAL ONE (11:56)
[2018-09-02] MEDS: INSULIN (LEVEMIR) 100 UNITS/ML UNITS SQ SCH (21:04)
[2018-09-02] MEDS: traZODone HCL 50 MG TABLET (FP) PO SCH (21:05)
[2018-09-02] MEDS: THIAMINE HCL 100 MG TABLET (FP) PO SCH (21:05)
[2018-09-02] MEDS: QUEtiapine FUMARATE 300 MG TABLET PO SCH (21:05)
[2018-09-03] MEDS: GABAPENTIN 400 MG CAPSULE (FP) PO SCH ×3 (06:27→21:12)
[2018-09-03] MEDS: metFORMIN HCL 500 MG TABLET (FP) PO SCH ×2 (07:02→16:48)
[2018-09-03] MEDS: INSULIN (NOVOLOG) ASPART 100 UNITS/ML 10ML VIAL SQ SCH ×3 (07:02→16:49)
[2018-09-03] MEDS: PRENATAL VITAMINS W/ FOLIC ACID TABLET (FP) PO SCH (09:56)
[2018-09-03] MEDS: PANTOPRAZOLE 40 MG TABLET (FP) PO SCH (09:56)
[2018-09-03] MEDS: INSULIN (LEVEMIR) 100 UNITS/ML UNITS SQ SCH (21:10)
[2018-09-03] MEDS: QUEtiapine FUMARATE 300 MG TABLET PO SCH (21:11)
[2018-09-03] MEDS: traZODone HCL 50 MG TABLET (FP) PO SCH (21:12)
[2018-09-03] MEDS: THIAMINE HCL 100 MG TABLET (FP) PO SCH (21:54)
[2018-09-04] MEDS: GABAPENTIN 400 MG CAPSULE (FP) PO SCH ×3 (06:15→21:46)
[2018-09-04] MEDS: metFORMIN HCL 500 MG TABLET (FP) PO SCH ×2 (06:23→16:29)
[2018-09-04] MEDS: INSULIN (NOVOLOG) ASPART 100 UNITS/ML 10ML VIAL SQ SCH ×3 (07:12→16:29)
[2018-09-04] MEDS: PRENATAL VITAMINS W/ FOLIC ACID TABLET (FP) PO SCH (10:07)
[2018-09-04] MEDS: PANTOPRAZOLE 40 MG TABLET (FP) PO SCH (10:07)
[2018-09-04] MEDS ORDERED: INSULIN (NOVOLOG) ASPART 100 UNITS/ML 10ML VIAL ONE (11:49)
[2018-09-04] MEDS: IBUPROFEN 400 MG TABLET (FP) PO PRN (14:14)
[2018-09-04] MEDS: THIAMINE HCL 100 MG TABLET (FP) PO SCH (21:46)
[2018-09-04] MEDS: traZODone HCL 50 MG TABLET (FP) PO SCH (21:47)
[2018-09-04] MEDS: QUEtiapine FUMARATE 300 MG TABLET PO SCH (21:47)
[2018-09-04] MEDS: INSULIN (LEVEMIR) 100 UNITS/ML UNITS SQ SCH (21:50)
[2018-09-05] MEDS: metFORMIN HCL 500 MG TABLET (FP) PO SCH ×2 (06:40→17:01)
[2018-09-05] MEDS: INSULIN (NOVOLOG) ASPART 100 UNITS/ML 10ML VIAL SQ SCH ×3 (06:41→17:02)
[2018-09-05] MEDS: GABAPENTIN 400 MG CAPSULE (FP) PO SCH ×3 (06:41→22:16)
[2018-09-05] MEDS ORDERED: INSULIN (NOVOLOG) ASPART 100 UNITS/ML 10ML VIAL ONE ×2 (06:46→17:00)
[2018-09-05] MEDS: PANTOPRAZOLE 40 MG TABLET (FP) PO SCH (10:20)
[2018-09-05] MEDS: PRENATAL VITAMINS W/ FOLIC ACID TABLET (FP) PO SCH (10:20)
[2018-09-05] MEDS: INSULIN (LEVEMIR) 100 UNITS/ML UNITS SQ SCH (22:15)
[2018-09-05] MEDS: THIAMINE HCL 100 MG TABLET (FP) PO SCH (22:16)
[2018-09-05] MEDS: QUEtiapine FUMARATE 300 MG TABLET PO SCH (22:16)
[2018-09-05] MEDS: traZODone HCL 50 MG TABLET (FP) PO SCH (22:16)
[2018-09-06] MEDS: GABAPENTIN 400 MG CAPSULE (FP) PO SCH ×3 (06:09→21:59)
[2018-09-06] MEDS: metFORMIN HCL 500 MG TABLET (FP) PO SCH ×2 (06:10→17:12)
[2018-09-06] MEDS: INSULIN (NOVOLOG) ASPART 100 UNITS/ML 10ML VIAL SQ SCH ×3 (06:12→17:11)
[2018-09-06] MEDS: PRENATAL VITAMINS W/ FOLIC ACID TABLET (FP) PO SCH (09:44)
[2018-09-06] MEDS: PANTOPRAZOLE 40 MG TABLET (FP) PO SCH (09:44)
[2018-09-06] MEDS ORDERED: PT OWN MED DRAWER 7, Y5N ONE (20:41)
[2018-09-06] MEDS: QUEtiapine FUMARATE 300 MG TABLET PO SCH (21:59)
[2018-09-06] MEDS: traZODone HCL 50 MG TABLET (FP) PO SCH (21:59)
[2018-09-06] MEDS: THIAMINE HCL 100 MG TABLET (FP) PO SCH (21:59)
[2018-09-06] MEDS: INSULIN (LEVEMIR) 100 UNITS/ML UNITS SQ SCH (22:08)
[2018-09-07] MEDS: GABAPENTIN 400 MG CAPSULE (FP) PO SCH ×3 (06:32→21:44)
[2018-09-07] MEDS: INSULIN (NOVOLOG) ASPART 100 UNITS/ML 10ML VIAL SQ SCH ×3 (06:47→16:43)
[2018-09-07] MEDS: metFORMIN HCL 500 MG TABLET (FP) PO SCH ×2 (06:47→16:41)
[2018-09-07] MEDS: PRENATAL VITAMINS W/ FOLIC ACID TABLET (FP) PO SCH (10:23)
[2018-09-07] MEDS: PANTOPRAZOLE 40 MG TABLET (FP) PO SCH (10:23)
[2018-09-07] MEDS ORDERED: INSULIN (NOVOLOG) ASPART 100 UNITS/ML 10ML VIAL ONE ×2 (11:56→16:29)
[2018-09-07] MEDS: QUEtiapine FUMARATE 300 MG TABLET PO SCH (21:43)
[2018-09-07] MEDS: THIAMINE HCL 100 MG TABLET (FP) PO SCH (21:43)
[2018-09-07] MEDS: traZODone HCL 50 MG TABLET (FP) PO SCH (21:44)
[2018-09-07] MEDS: INSULIN (LEVEMIR) 100 UNITS/ML UNITS SQ SCH (21:51)
[2018-09-08] MEDS: GABAPENTIN 400 MG CAPSULE (FP) PO SCH ×3 (05:55→21:06)
[2018-09-08] MEDS: metFORMIN HCL 500 MG TABLET (FP) PO SCH ×2 (07:25→16:54)
[2018-09-08] MEDS: INSULIN (NOVOLOG) ASPART 100 UNITS/ML 10ML VIAL SQ SCH ×3 (07:25→16:30)
[2018-09-08] MEDS: PANTOPRAZOLE 40 MG TABLET (FP) PO SCH (09:41)
[2018-09-08] MEDS: PRENATAL VITAMINS W/ FOLIC ACID TABLET (FP) PO SCH (09:42)
[2018-09-08] MEDS ORDERED: INSULIN (NOVOLOG) ASPART 100 UNITS/ML 10ML VIAL ONE (11:54)
[2018-09-08] MEDS: QUEtiapine FUMARATE 300 MG TABLET PO SCH (21:05)
[2018-09-08] MEDS: THIAMINE HCL 100 MG TABLET (FP) PO SCH (21:05)
[2018-09-08] MEDS: traZODone HCL 50 MG TABLET (FP) PO SCH (21:06)
[2018-09-08] MEDS: INSULIN (LEVEMIR) 100 UNITS/ML UNITS SQ SCH (22:06)
[2018-09-09] MEDS: GABAPENTIN 400 MG CAPSULE (FP) PO SCH ×3 (06:06→21:46)
[2018-09-09] MEDS: metFORMIN HCL 500 MG TABLET (FP) PO SCH ×2 (07:11→16:37)
[2018-09-09] MEDS: INSULIN (NOVOLOG) ASPART 100 UNITS/ML 10ML VIAL SQ SCH ×3 (07:12→16:37)
[2018-09-09] MEDS: PANTOPRAZOLE 40 MG TABLET (FP) PO SCH (09:44)
[2018-09-09] MEDS: PRENATAL VITAMINS W/ FOLIC ACID TABLET (FP) PO SCH (09:44)
[2018-09-09] MEDS: THIAMINE HCL 100 MG TABLET (FP) PO SCH (21:44)
[2018-09-09] MEDS: traZODone HCL 50 MG TABLET (FP) PO SCH (21:46)
[2018-09-09] MEDS: QUEtiapine FUMARATE 300 MG TABLET PO SCH (21:46)
[2018-09-09] MEDS: INSULIN (LEVEMIR) 100 UNITS/ML UNITS SQ SCH (21:46)
[2018-09-10] MEDS: GABAPENTIN 400 MG CAPSULE (FP) PO SCH ×3 (06:14→22:09)
[2018-09-10] MEDS: metFORMIN HCL 500 MG TABLET (FP) PO SCH ×2 (06:14→16:47)
[2018-09-10] MEDS: INSULIN (NOVOLOG) ASPART 100 UNITS/ML 10ML VIAL SQ SCH ×3 (06:15→16:48)
[2018-09-10] MEDS: PRENATAL VITAMINS W/ FOLIC ACID TABLET (FP) PO SCH (10:18)
[2018-09-10] MEDS: PANTOPRAZOLE 40 MG TABLET (FP) PO SCH (10:19)
[2018-09-10] MEDS ORDERED: INSULIN (NOVOLOG) ASPART 100 UNITS/ML 10ML VIAL ONE (11:52)
[2018-09-10] MEDS: MAG HYDROX/AL HYDROX/SIMETH 30 ML UNIT-DOSE CUP PO PRN (19:59)
[2018-09-10] MEDS: QUEtiapine FUMARATE 300 MG TABLET PO SCH (22:09)
[2018-09-10] MEDS: THIAMINE HCL 100 MG TABLET (FP) PO SCH (22:09)
[2018-09-10] MEDS: INSULIN (LEVEMIR) 100 UNITS/ML UNITS SQ SCH (22:09)
[2018-09-10] MEDS: traZODone HCL 50 MG TABLET (FP) PO SCH (22:10)
[2018-09-11] MEDS: GABAPENTIN 400 MG CAPSULE (FP) PO SCH ×3 (05:58→21:02)
[2018-09-11] MEDS: metFORMIN HCL 500 MG TABLET (FP) PO SCH ×2 (07:27→16:39)
[2018-09-11] MEDS: INSULIN (NOVOLOG) ASPART 100 UNITS/ML 10ML VIAL SQ SCH ×3 (07:28→16:38)
[2018-09-11] MEDS: PANTOPRAZOLE 40 MG TABLET (FP) PO SCH (10:30)
[2018-09-11] MEDS: PRENATAL VITAMINS W/ FOLIC ACID TABLET (FP) PO SCH (10:30)
[2018-09-11] MEDS: traZODone HCL 50 MG TABLET (FP) PO SCH (21:01)
[2018-09-11] MEDS: QUEtiapine FUMARATE 300 MG TABLET PO SCH (21:01)
[2018-09-11] MEDS: THIAMINE HCL 100 MG TABLET (FP) PO SCH (21:01)
[2018-09-11] MEDS: INSULIN (LEVEMIR) 100 UNITS/ML UNITS SQ SCH (21:02)
[2018-09-12] MEDS: GABAPENTIN 400 MG CAPSULE (FP) PO SCH ×3 (06:21→21:03)
[2018-09-12] MEDS: metFORMIN HCL 500 MG TABLET (FP) PO SCH ×2 (07:19→16:40)
[2018-09-12] MEDS: INSULIN (NOVOLOG) ASPART 100 UNITS/ML 10ML VIAL SQ SCH ×3 (07:20→16:41)
[2018-09-12] MEDS: PRENATAL VITAMINS W/ FOLIC ACID TABLET (FP) PO SCH (10:10)
[2018-09-12] MEDS: PANTOPRAZOLE 40 MG TABLET (FP) PO SCH (10:10)
[2018-09-12] MEDS: INSULIN (LEVEMIR) 100 UNITS/ML UNITS SQ SCH (21:01)
[2018-09-12] MEDS: THIAMINE HCL 100 MG TABLET (FP) PO SCH (21:02)
[2018-09-12] MEDS: traZODone HCL 50 MG TABLET (FP) PO SCH (21:03)
[2018-09-12] MEDS: QUEtiapine FUMARATE 300 MG TABLET PO SCH (21:03)
[2018-09-13] MEDS: GABAPENTIN 400 MG CAPSULE (FP) PO SCH ×3 (05:54→21:09)
[2018-09-13] MEDS: metFORMIN HCL 500 MG TABLET (FP) PO SCH ×2 (07:17→16:30)
[2018-09-13] MEDS: INSULIN (NOVOLOG) ASPART 100 UNITS/ML 10ML VIAL SQ SCH ×3 (07:18→16:31)
[2018-09-13] MEDS: PANTOPRAZOLE 40 MG TABLET (FP) PO SCH (10:22)
[2018-09-13] MEDS: PRENATAL VITAMINS W/ FOLIC ACID TABLET (FP) PO SCH (10:22)
[2018-09-13] MEDS ORDERED: INSULIN (NOVOLOG) ASPART 100 UNITS/ML 10ML VIAL ONE (11:51)
[2018-09-13] MEDS: THIAMINE HCL 100 MG TABLET (FP) PO SCH (21:09)
[2018-09-13] MEDS: QUEtiapine FUMARATE 300 MG TABLET PO SCH (21:10)
[2018-09-13] MEDS: traZODone HCL 50 MG TABLET (FP) PO SCH (21:10)
[2018-09-13] MEDS: INSULIN (LEVEMIR) 100 UNITS/ML UNITS SQ SCH (22:11)
[2018-09-14] MEDS: GABAPENTIN 400 MG CAPSULE (FP) PO SCH ×3 (05:58→21:01)
[2018-09-14] MEDS: metFORMIN HCL 500 MG TABLET (FP) PO SCH ×2 (07:16→16:40)
[2018-09-14] MEDS: INSULIN (NOVOLOG) ASPART 100 UNITS/ML 10ML VIAL SQ SCH ×3 (07:17→16:41)
[2018-09-14] MEDS ORDERED: PT OWN MED DRAWER 7, Y5N ONE (09:10)
[2018-09-14] MEDS: PRENATAL VITAMINS W/ FOLIC ACID TABLET (FP) PO SCH (10:28)
[2018-09-14] MEDS: PANTOPRAZOLE 40 MG TABLET (FP) PO SCH (10:28)
[2018-09-14] MEDS: THIAMINE HCL 100 MG TABLET (FP) PO SCH (21:02)
[2018-09-14] MEDS: QUEtiapine FUMARATE 300 MG TABLET PO SCH (21:02)
[2018-09-14] MEDS: traZODone HCL 50 MG TABLET (FP) PO SCH (21:02)
[2018-09-14] MEDS: INSULIN (LEVEMIR) 100 UNITS/ML UNITS SQ SCH (21:03)
[2018-09-15] MEDS: metFORMIN HCL 500 MG TABLET (FP) PO SCH ×2 (06:23→16:50)
[2018-09-15] MEDS: GABAPENTIN 400 MG CAPSULE (FP) PO SCH ×3 (06:24→21:05)
[2018-09-15] MEDS: INSULIN (NOVOLOG) ASPART 100 UNITS/ML 10ML VIAL SQ SCH ×3 (06:25→16:48)
[2018-09-15] MEDS: PRENATAL VITAMINS W/ FOLIC ACID TABLET (FP) PO SCH (09:46)
[2018-09-15] MEDS: PANTOPRAZOLE 40 MG TABLET (FP) PO SCH (09:46)
[2018-09-15] MEDS ORDERED: INSULIN (NOVOLOG) ASPART 100 UNITS/ML 10ML VIAL ONE (11:51)
[2018-09-15] MEDS: IBUPROFEN 400 MG TABLET (FP) PO PRN (16:44)
[2018-09-15] MEDS: THIAMINE HCL 100 MG TABLET (FP) PO SCH (21:05)
[2018-09-15] MEDS: QUEtiapine FUMARATE 300 MG TABLET PO SCH (21:05)
[2018-09-15] MEDS: traZODone HCL 50 MG TABLET (FP) PO SCH (21:05)
[2018-09-15] MEDS: INSULIN (LEVEMIR) 100 UNITS/ML UNITS SQ SCH (21:07)
[2018-09-16] MEDS: metFORMIN HCL 500 MG TABLET (FP) PO SCH ×2 (06:18→16:31)
[2018-09-16] MEDS: GABAPENTIN 400 MG CAPSULE (FP) PO SCH ×3 (06:18→21:45)
[2018-09-16] MEDS: INSULIN (NOVOLOG) ASPART 100 UNITS/ML 10ML VIAL SQ SCH ×3 (06:19→16:32)
[2018-09-16] MEDS: PRENATAL VITAMINS W/ FOLIC ACID TABLET (FP) PO SCH (09:52)
[2018-09-16] MEDS: PANTOPRAZOLE 40 MG TABLET (FP) PO SCH (09:52)
[2018-09-16] MEDS: QUEtiapine FUMARATE 300 MG TABLET PO SCH (21:45)
[2018-09-16] MEDS: THIAMINE HCL 100 MG TABLET (FP) PO SCH (21:45)
[2018-09-16] MEDS: traZODone HCL 50 MG TABLET (FP) PO SCH (21:45)
[2018-09-16] MEDS: INSULIN (LEVEMIR) 100 UNITS/ML UNITS SQ SCH (21:47)
[2018-09-17] MEDS: GABAPENTIN 400 MG CAPSULE (FP) PO SCH ×3 (05:52→21:07)
[2018-09-17] MEDS: metFORMIN HCL 500 MG TABLET (FP) PO SCH ×2 (07:14→16:31)
[2018-09-17] MEDS: INSULIN (NOVOLOG) ASPART 100 UNITS/ML 10ML VIAL SQ SCH ×3 (07:16→16:30)
[2018-09-17] MEDS: PANTOPRAZOLE 40 MG TABLET (FP) PO SCH (10:48)
[2018-09-17] MEDS: PRENATAL VITAMINS W/ FOLIC ACID TABLET (FP) PO SCH (10:48)
[2018-09-17] MEDS ORDERED: INSULIN (NOVOLOG) ASPART 100 UNITS/ML 10ML VIAL ONE (11:56)
[2018-09-17] MEDS: THIAMINE HCL 100 MG TABLET (FP) PO SCH (21:07)
[2018-09-17] MEDS: QUEtiapine FUMARATE 300 MG TABLET PO SCH (21:07)
[2018-09-17] MEDS: traZODone HCL 50 MG TABLET (FP) PO SCH (21:07)
[2018-09-17] MEDS: INSULIN (LEVEMIR) 100 UNITS/ML UNITS SQ SCH (21:09)
[2018-09-18] MEDS: GABAPENTIN 400 MG CAPSULE (FP) PO SCH ×3 (05:47→21:20)
[2018-09-18] MEDS: metFORMIN HCL 500 MG TABLET (FP) PO SCH ×2 (07:02→16:56)
[2018-09-18] MEDS: INSULIN (NOVOLOG) ASPART 100 UNITS/ML 10ML VIAL SQ SCH ×3 (07:04→16:58)
[2018-09-18] MEDS: PRENATAL VITAMINS W/ FOLIC ACID TABLET (FP) PO SCH (10:15)
[2018-09-18] MEDS: PANTOPRAZOLE 40 MG TABLET (FP) PO SCH (10:15)
[2018-09-18] MEDS: INSULIN (LEVEMIR) 100 UNITS/ML UNITS SQ SCH (21:18)
[2018-09-18] MEDS: traZODone HCL 50 MG TABLET (FP) PO SCH (21:20)
[2018-09-18] MEDS: QUEtiapine FUMARATE 300 MG TABLET PO SCH (21:20)
[2018-09-18] MEDS: THIAMINE HCL 100 MG TABLET (FP) PO SCH (21:20)
[2018-09-19] MEDS: metFORMIN HCL 500 MG TABLET (FP) PO SCH ×2 (06:05→16:39)
[2018-09-19] MEDS: GABAPENTIN 400 MG CAPSULE (FP) PO SCH ×3 (06:08→21:27)
[2018-09-19] MEDS: INSULIN (NOVOLOG) ASPART 100 UNITS/ML 10ML VIAL SQ SCH ×3 (06:09→16:39)
[2018-09-19] MEDS: PANTOPRAZOLE 40 MG TABLET (FP) PO SCH (10:10)
[2018-09-19] MEDS: PRENATAL VITAMINS W/ FOLIC ACID TABLET (FP) PO SCH (10:10)
[2018-09-19] MEDS: THIAMINE HCL 100 MG TABLET (FP) PO SCH (21:26)
[2018-09-19] MEDS: traZODone HCL 50 MG TABLET (FP) PO SCH (21:27)
[2018-09-19] MEDS: QUEtiapine FUMARATE 300 MG TABLET PO SCH (21:28)
[2018-09-19] MEDS: INSULIN (LEVEMIR) 100 UNITS/ML UNITS SQ SCH (21:28)
[2018-09-20] MEDS: metFORMIN HCL 500 MG TABLET (FP) PO SCH ×2 (06:07→16:11)
[2018-09-20] MEDS: GABAPENTIN 400 MG CAPSULE (FP) PO SCH ×3 (06:07→21:24)
[2018-09-20] MEDS: INSULIN (NOVOLOG) ASPART 100 UNITS/ML 10ML VIAL SQ SCH ×3 (06:08→16:10)
[2018-09-20] MEDS: PANTOPRAZOLE 40 MG TABLET (FP) PO SCH (10:56)
[2018-09-20] MEDS: PRENATAL VITAMINS W/ FOLIC ACID TABLET (FP) PO SCH (10:56)
[2018-09-20] MEDS: THIAMINE HCL 100 MG TABLET (FP) PO SCH (21:23)
[2018-09-20] MEDS: INSULIN (LEVEMIR) 100 UNITS/ML UNITS SQ SCH (21:24)
[2018-09-20] MEDS: traZODone HCL 50 MG TABLET (FP) PO SCH (21:24)
[2018-09-20] MEDS: QUEtiapine FUMARATE 300 MG TABLET PO SCH (21:24)
[2018-09-21] MEDS: GABAPENTIN 400 MG CAPSULE (FP) PO SCH ×3 (05:50→22:01)
[2018-09-21] MEDS: metFORMIN HCL 500 MG TABLET (FP) PO SCH ×2 (07:11→16:35)
[2018-09-21] MEDS: INSULIN (NOVOLOG) ASPART 100 UNITS/ML 10ML VIAL SQ SCH ×3 (07:12→16:40)
[2018-09-21] MEDS: PRENATAL VITAMINS W/ FOLIC ACID TABLET (FP) PO SCH (09:40)
[2018-09-21] MEDS: PANTOPRAZOLE 40 MG TABLET (FP) PO SCH (09:40)
[2018-09-21] MEDS: QUEtiapine FUMARATE 300 MG TABLET PO SCH (22:01)
[2018-09-21] MEDS: THIAMINE HCL 100 MG TABLET (FP) PO SCH (22:01)
[2018-09-21] MEDS: INSULIN (LEVEMIR) 100 UNITS/ML UNITS SQ SCH (22:01)
[2018-09-21] MEDS: traZODone HCL 50 MG TABLET (FP) PO SCH (22:01)
[2018-09-22] MEDS: GABAPENTIN 400 MG CAPSULE (FP) PO SCH ×3 (05:50→21:02)
[2018-09-22] MEDS: metFORMIN HCL 500 MG TABLET (FP) PO SCH ×2 (06:27→16:29)
[2018-09-22] MEDS: INSULIN (NOVOLOG) ASPART 100 UNITS/ML 10ML VIAL SQ SCH ×3 (06:28→16:29)
[2018-09-22] MEDS: PANTOPRAZOLE 40 MG TABLET (FP) PO SCH (10:34)
[2018-09-22] MEDS: PRENATAL VITAMINS W/ FOLIC ACID TABLET (FP) PO SCH (10:34)
[2018-09-22] MEDS ORDERED: INSULIN (NOVOLOG) ASPART 100 UNITS/ML 10ML VIAL ONE (11:36)
[2018-09-22] MEDS: THIAMINE HCL 100 MG TABLET (FP) PO SCH (21:01)
[2018-09-22] MEDS: traZODone HCL 50 MG TABLET (FP) PO SCH (21:02)
[2018-09-22] MEDS: QUEtiapine FUMARATE 300 MG TABLET PO SCH (21:03)
[2018-09-22] MEDS: INSULIN (LEVEMIR) 100 UNITS/ML UNITS SQ SCH (21:04)
[2018-09-23] MEDS: MAG HYDROX/AL HYDROX/SIMETH 30 ML UNIT-DOSE CUP PO PRN (05:46)
[2018-09-23] MEDS: GABAPENTIN 400 MG CAPSULE (FP) PO SCH (07:00)
[2018-09-23] MEDS: metFORMIN HCL 500 MG TABLET (FP) PO SCH (07:00)
[2018-09-23 07:05] VITALS: BP 133/86; PULSE 83; TEMP 97.9
[2018-09-23] MEDS: INSULIN (NOVOLOG) ASPART 100 UNITS/ML 10ML VIAL SQ SCH (07:06)
--- NOTE | 2018-09-23 08:39 | PN ---
[facility] Progress Note Note: Patient is discharged today. Scripts for 30 day supply of Seroquel 30 mg po HS, Gabapentin 800 mg po TID and Trazadone 150 mhg po HS were electronically transmitted to [facility] at [address] [place] [address]
--- NOTE | 2018-09-23 08:54 | PN ---
S Progress Note Note: REHAB DISCHARGE NOTE: PATIENT SCHEDULED FOR DISCHARGE TODAY. PATIENT STATES HE ACHIEVED ALL REHAB GOALS AND IS SCHEDULED FOR FOLLOW UP WITH [facility]. PATIENT IS MEDICALLY STABLE AND DENIES SI/HI. PATIENT ENCOURAGED TO ATTEND GROUP MEETINGS TO PREVENT RELAPSE AND TO FOLLOW UP WITH PCP WITHIN ONE WEEK OF DISCHARGE TO CONTINUE MEDICAL MANAGEMENT. DIABETIC MEDICATIONS SENT TO PREFERRED PHARMACY. Vital Signs Temperature 97.9 F 09/23/18 07:05 Pulse Rate 83 09/23/18 07:05 Respiratory Rate 18 09/23/18 07:05 Blood Pressure 133/86 09/23/18 07:05 O2 Sat by Pulse Oximetry (%)
== END 2018-09-23 09:10 | disposition home or self-care (01) | DRG 897 ==
LOC: YASAS 12:02 → Y3W 17:25
PROVIDERS: ADMIT Psychiatry & Neurology Psychiatry; ATTEND Psychiatry & Neurology Psychiatry
PROC: HZ2ZZZZ Detoxification Services for Substance Abuse Treatment (ICD-10-PCS; principal; 2018-08-28)
DX: F14.20 Cocaine dependence, uncomplicated (principal); F19.24 Other psychoactive substance dependence with psychoactive substance-induced mood disorder; F25.9 Schizoaffective disorder, unspecified; G62.9 Polyneuropathy, unspecified; I10 Essential (primary) hypertension; E78.00 Pure hypercholesterolemia, unspecified; K21.9 Gastro-esophageal reflux disease without esophagitis; E11.9 Type 2 diabetes mellitus without complications; Z79.84 Long term (current) use of oral hypoglycemic drugs; R35.1 Nocturia; R04.0 Epistaxis; R94.31 Abnormal electrocardiogram [ECG] [EKG]; Z91.013 Allergy to seafood
CPT/HCPCS: 36415; 80053; 81003; 81015; 82962; 84132; 85027; 93005; 93010

== ENCOUNTER 2019-04-09 11:27 | Inpatient (IN) | payer OTHER ==
[2019-04-09 12:20] VITALS: BMI 26.3
--- NOTE | 2019-04-09 13:11 | HP ---
CIWA Score Nausea/Vomitin-No Nausea/No Vomiting Muscle Tremors: None Anxiety: 2 Agitation: 1-Slight > Activity Paroxysmal Sweats: 1-Minimal Palms Moist Orientation: 0-Oriented Tacttile Disturbances: 0-None Auditory Disturbances: 0-None Visual Disturbances: 0-None Headache: 0-None Present CIWA-Ar Total Score: 4 - Admission Criteria OASAS Guidelines: Admission for Medically Managed Detox: Requires at least one of the followin. CIWA greater than 12 2. Seizures within the past 24 hours 3. Delirium tremens within the past 24 hours 4. Hallucinations within the past 24 hours 5. Acute intervention needed for co occurring medical disorder 6. Acute intervention needed for co occurring psychiatric disorder 7. Severe withdrawal that cannot be handled at a lower level of care (continued vomiting, continued diarrhea, abnormal vital signs) requiring intravenous medication and/or fluids 8. Admission ROS [facility] Allergies/Adverse Reactions: Allergies Allergy/AdvReac Type Severity Reaction Status Date / Time Fish Containing Products Allergy Severe Hives Verified 04/09/19 12:04 shellfish derived Allergy Severe Hives Verified 04/09/19 12:04 No Known Drug Allergies Allergy Verified 04/09/19 12:04 History of Present Illness: 58 y.o. male w/ etoh and cocaine use , reports relapsed since mid-February , current daily use 4 x 6-pk beer daily , latest use 1 week ago " I stopped on my own " , cocaine : latest use Wednesday 04/04 , 300 $ via inhalation , 3-4 x /week since February 2019 , previously sober after d/c from this facility has been going to [facility] since outpt , latest 03/28/19 . tobacco : denies PMHX : dm II , gerd , htn PShx : denies Psych : bipolar d/o , depression , denies SI / HI . Exam Limitations: No Limitations - Ebola screening Have you traveled outside of the country in the last 21 days: No Have you had contact with anyone from an Ebola affected area: No Do you have a fever: No - Review of Systems Constitutional: No Symptoms Reported EENT: reports: No Symptoms Reported Respiratory: reports: No Symptoms reported Cardiac: reports: No Symptoms Reported GI: reports: No Symptoms Reported : reports: Frequency Musculoskeletal: reports: No Symptoms Reported Integumentary: reports: No Symptoms Reported Neuro: reports: No Symptoms reported Endocrine: reports: See HPI Psychiatric: reports: Orientated x3, Anxious Patient History - Patient Medical History Hx Anemia: No Hx Asthma: No Hx Chronic Obstructive Pulmonary Disease (COPD): No Hx Cancer: No Hx Cardiac Disorders: No Hx Congestive Heart Failure: No Hx Hypertension: Yes (Compliant w/ meds) Hx Hypercholesterolemia: Yes Hx Pacemaker: No HX Cerebrovascular Accident: No Hx Seizures: No Hx Dementia: No Hx Diabetes: Yes Hx Gastrointestinal Disorders: Yes (acid reflux) Hx Liver Disease: No Hx Genitourinary Disorders: No Hx Sexually Transmitted Disorders: No Hx Renal Disease (ESRD): No Hx Thyroid Disease: No Hx Human Immunodeficiency Virus (HIV): No Hx Hepatitis C: No Hx Depression: Yes Hx Suicide Attempt: No Hx Bipolar Disorder: Yes Hx Schizophrenia: No - Patient Surgical History Past Surgical History: Yes Hx Neurologic Surgery: No Hx Cataract Extraction: No Hx Cardiac Surgery: No Hx Lung Surgery: No Hx Breast Surgery: No Hx Breast Biopsy: No Hx Abdominal Surgery: No Hx Appendectomy: No Hx Cholecystectomy: No Hx Genitourinary Surgery: No Hx Section: No Hx Orthopedic Surgery: Yes (L knee in 2004) Anesthesia Reaction: No - PPD History Date: 03/04/18 Results: 0 mm - Smoking Cessation Smoking history: Never smoked Have you smoked in the past 12 months: No Aproximately how many cigarettes per day: 0 Cigars Per Day: 0 Hx Chewing Tobacco Use: No - Substances abused Cocaine Substance route: Inhalation Frequency: 1-2 times per week Amount used: 300 hundred dollars Age of first use: 17 Date of last use: 04/05/19 Alcohol Substance route: Oral Frequency: Daily Amount used: half a case of beer' Age of first use: 17 Date of last use: 03/31/19 Family Disease History - Family Disease History Family Disease History: Diabetes: Brother (HTN), Other: Father (alcohol dependence) Admission Physical Exam [facility] - Vital Signs Vital Signs: Vital Signs - 24 hr 04/09/19 12:03 Temperature 96.9 F L Pulse Rate 99 H Respiratory 20 Rate Blood Pressure 168/98 - Physical General Appearance: Yes: Anxious HEENTM: Yes: Hearing grossly Normal, Normal Voice Respiratory: Yes: Chest Non-Tender, Lungs Clear, Normal Breath Sounds, No Respiratory Distress, No Accessory Muscle Use Neck: Yes: No masses,lesions,Nodules, Trachea in good position Cardiology: Yes: Regular Rhythm, Regular Rate, S1, S2, Tachycardia Abdominal: Yes: Normal Bowel Sounds, Non Tender, Soft Musculoskeletal: Yes: Gait Steady Extremities: Yes: Normal Range of Motion, Non-Tender Neurological: Yes: Fully Oriented, Alert, Motor Strength 5/5 Integumentary: Yes: Warm - Diagnostic (1) Alcohol dependence Current Visit: Yes Status: Acute Qualifiers: Substance use status: uncomplicated Qualified Code(s): F10.20 - Alcohol dependence, uncomplicated (2) Cocaine dependence Current Visit: No Status: Suspected Breathalyzer - Breathalyzer Breathalyzer: 0 Urine Drug Screen - Test Device Lot number: [id number] Expiration date: 12/25/20 - Control Is test valid?: Yes - Results Drug screen NEGATIVE: Yes Inpatient Rehab Admission - Rehab Decision to Admit Inpatient rehab admission?: Yes - Initial Determination Are CD services needed?: Yes Free of communicable disease: No Not in need of hospitalization: No - Rehab Admission Criteria Previous failed treatment: Yes Poor recovery environment: No Comorbidities: No Lacks judgement: Yes Patient is meeting Inpatient Rehab admission criteria:: Yes
[2019-04-09] MEDS ORDERED: ACETAMINOPHEN 325 MG TABLET (FP) PO PRN (13:21)
[2019-04-09] MEDS ORDERED: MAGNESIUM HYDROX 2400MG/30ML ORAL SUSPENSION 30 ML CUP PO PRN (13:21)
[2019-04-09] MEDS ORDERED: MAGNESIUM CITRATE 300 ML BOTTLE PO PRN (13:21)
[2019-04-09] MEDS ORDERED: MAG HYDROX/AL HYDROX/SIMETH 30 ML UNIT-DOSE CUP PO PRN (13:21)
[2019-04-09] MEDS ORDERED: guaiFENesin 200 MG/10 ML 10 ML UNIT-DOSE CUPS PO PRN (13:21)
[2019-04-09] MEDS ORDERED: P-EPHED 60MG/TRIPROLIDI 2.5MG TABLET PO PRN (13:21)
[2019-04-09] MEDS ORDERED: MENTHOL/PHENOL 1 EACH UD MM PRN (13:21)
[2019-04-09] MEDS ORDERED: metFORMIN HCL 500 MG TABLET (FP) PO SCH (16:30)
[2019-04-09] MEDS: PANTOPRAZOLE 20 MG TABLET (FP) PO SCH (16:39)
[2019-04-09] MEDS: metFORMIN HCL 500 MG TABLET (FP) PO SCH (16:39)
[2019-04-09] MEDS: INSULIN SLIDING SCALE (NOVOLOG) 1 VIAL SQ SCH ×2 (16:39→21:14)
[2019-04-09] MEDS: INSULIN (NOVOLOG) ASPART 100 UNITS/ML 10ML VIAL SQ SCH (17:22)
[2019-04-09 17:31] LABS: HEMATOCRIT 45.1 % (35.4-49); HEMOGLOBIN 15.2 GM/dL (11.7-16.9); MCH 29.1 pg (25.7-33.7); MCHC 33.8 g/dl (32.0-35.9); MEAN CELL VOLUME 86.1 fl (80-96); MEAN PLT VOLUME 9.8 fl (7.5-11.1); PLATELET COUNT 232 K/MM3 (134-434); RBC 5.24 M/mm3 (4.00-5.60); RDW 13.7 % (11.9-15.9); WHITE BLOOD COUNT 3.8 K/mm3 (4.0-10.0)
[2019-04-09 17:45] LABS: BILIRUBIN,TOTAL 0.4 mg/dL (0.2-1); BLOOD UREA NITROGEN 20.2 mg/dL (7-18); CALCIUM 9.8 mg/dL (8.5-10.1); CREATININE 1.1 mg/dL (0.55-1.3); POTASSIUM 5.1 mmol/L (3.5-5.1); TOT PROT 8.2 g/dl (6.4-8.2)
--- NOTE | 2019-04-09 18:09 | CONSULT ---
[facility] Psychiatric Consult - Data Date of interview: 04/09/19 Admission source: [facility] Identifying data: Patient is a 58 year old male, father of three, domiciled and retired (receives a pension). This is one of multiple admissions for patient. Patient admitted to for alcohol dependence. Substance Abuse History: - Smoking Cessation. Smoking history: Never smoked. Have you smoked in the past 12 months: No. Aproximately how many cigarettes per day: 0. Cigars Per Day: 0. Hx Chewing Tobacco Use: No. - Substances abused. Cocaine. Substance route: Inhalation. Frequency: 1-2 times per week. Amount used: 300 hundred dollars. Age of first use: 17. Date of last use: 04/05/19. Alcohol. Substance route: Oral. Frequency: Daily. Amount used: half a case of beer'. Age of first use: 17. Date of last use: 03/31/19 Medical History: Significant for type 2 diabetes, hypertension, GERD, low back pain/sciatica, neuropathy and history of orthosurgery for injury to left knee ( 2004). Psychiatric History: Patients first psychiatric contact was in 2006 after he was admitted to [facility] for depression. States he was diagnosed with Bipolar disorder and prescribed psychotropic medications. Mr. Lugo reports additional hospitalizations at [facility], [facility], and [facility]. Mr. Lugo most recent psychiatric hospitalization occured at [facility] in 2014 after he reported feeling depressed. He was discharged with seroquel 300mg HS + Depakote 500mg BID + Trazodone 150mg. He reports past diagnosis of schizoaffective disorder. States that he becomes paranoid when he is off his medications. Reports feeling as if people are watching him. Stated that his family have made him aware that he becomes extremely paranoid when off his medications. is currently provided outpatient psychiatric care at [facility] and is prescribed Seroquel 300mg HS + Depakote 500mg BID + Trazodone 150mg HS. Patient reports medication compliance. Patient denies h/o suicide attempt. At present, patient denies auditory/visual hallucinations, paranoid ideation, and suicidal/homicidal ideation. Physical/Sexual Abuse/Trauma History: denies. Mental Status Exam - Mental Status Exam Alert and Oriented to: Time, Place, Person Cognitive Function: Good Patient Appearance: Well Groomed Mood: Euthymic Affect: Mood Congruent Patient Behavior: Cooperative Speech Pattern: Appropriate Voice Loudness: Normal Thought Process: Goal Oriented Thought Disorder: Not Present Hallucinations: Denies Suicidal Ideation: Denies Homicidal Ideation: Denies Insight/Judgement: Poor Sleep: Poorly Appetite: Fair Muscle strength/Tone: Normal Gait/Station: Normal Psychiatric Findings - Problem List (Cameron 1, 2,3) (1) Alcohol dependence Current Visit: Yes Status: Acute Qualifiers: Substance use status: uncomplicated Qualified Code(s): F10.20 - Alcohol dependence, uncomplicated (2) Schizoaffective disorder Current Visit: Yes Status: Chronic Comment: Endorsed by the patient in this interview. - Initial Treatment Plan Initial Treatment Plan: Psychoeducation provided. Rehab in progress. Will order Seroquel 300mg HS + Depakote 500mg BID + Trazodone 150mg HS. Liver enzymes within normal limit. Will order Valproic acid level for tomorrow (04/10/19). Benefits and side effects discussed. Verbal consent given.
[2019-04-09] MEDS: INSULIN (LEVEMIR) 100 UNITS/ML UNITS SQ SCH (21:13)
[2019-04-09] MEDS: THIAMINE HCL 100 MG TABLET (FP) PO SCH (21:15)
[2019-04-09] MEDS: traZODone HCL 50 MG TABLET (FP) PO SCH (21:15)
[2019-04-09] MEDS: DIVALPROEX SODIUM 500 MG TABLET E.C. PO SCH (21:15)
[2019-04-09] MEDS: LISINOPRIL 10 MG TABLET (FP) PO SCH (21:15)
[2019-04-09] MEDS: QUEtiapine FUMARATE 300 MG TABLET PO SCH (21:15)
[2019-04-09] MEDS ORDERED: INSULIN (NOVOLOG) ASPART 100 UNITS/ML 10ML VIAL ONE (21:32)
[2019-04-09] MEDS ORDERED: MELATONIN 5 MG TABLETS PO PRN (22:00)
[2019-04-10] MEDS: GABAPENTIN 400 MG CAPSULE (FP) PO SCH ×4 (05:50→21:49)
[2019-04-10] MEDS ORDERED: INSULIN (NOVOLOG) ASPART 100 UNITS/ML 10ML VIAL ONE (06:52)
[2019-04-10] MEDS: metFORMIN HCL 500 MG TABLET (FP) PO SCH ×2 (06:53→16:24)
[2019-04-10] MEDS: INSULIN SLIDING SCALE (NOVOLOG) 1 VIAL SQ SCH ×4 (06:53→21:53)
[2019-04-10] MEDS: INSULIN (NOVOLOG) ASPART 100 UNITS/ML 10ML VIAL SQ SCH ×3 (07:48→16:26)
[2019-04-10] MEDS: PRENATAL VITAMINS W/ FOLIC ACID TABLET (FP) PO SCH (09:53)
[2019-04-10] MEDS: DIVALPROEX SODIUM 500 MG TABLET E.C. PO SCH ×2 (09:54→21:48)
[2019-04-10] MEDS: PANTOPRAZOLE 20 MG TABLET (FP) PO SCH (09:54)
[2019-04-10] MEDS ORDERED: INSULIN (NOVOLOG) ASPART 100 UNITS/ML 10ML VIAL SQ ONE (12:10)
--- NOTE | 2019-04-10 12:27 | PN ---
S Progress Note Note: bm 523 ,will give novolog 5 units extra,bgm monitoring with insulin coverage
[2019-04-10 18:35] LABS: PH,URINE 5.5 (5.0-8.0); URINE APPEARANCE CLEAR; URINE BILIRUBIN NEGATIVE (NEGATIVE); URINE COLOR YELLOW; URINE GLUCOSE (UA) 3+ (NEGATIVE); URINE KETONE NEGATIVE (NEGATIVE); URINE LEUK ESTERASE NEGATIVE (NEGATIVE); URINE NITRITE NEGATIVE (NEGATIVE); URINE PROTEIN NEGATIVE (NEGATIVE); URINE UROBILINOGEN 0.2 mg/dL (0.2-1.0)
[2019-04-10] MEDS: LISINOPRIL 10 MG TABLET (FP) PO SCH (21:47)
[2019-04-10] MEDS: traZODone HCL 50 MG TABLET (FP) PO SCH (21:47)
[2019-04-10] MEDS: QUEtiapine FUMARATE 300 MG TABLET PO SCH (21:48)
[2019-04-10] MEDS: THIAMINE HCL 100 MG TABLET (FP) PO SCH (21:48)
[2019-04-10] MEDS: INSULIN (LEVEMIR) 100 UNITS/ML UNITS SQ SCH (21:53)
[2019-04-11] MEDS: GABAPENTIN 400 MG CAPSULE (FP) PO SCH ×4 (06:35→21:11)
[2019-04-11] MEDS: metFORMIN HCL 500 MG TABLET (FP) PO SCH ×2 (06:35→16:59)
[2019-04-11] MEDS: INSULIN SLIDING SCALE (NOVOLOG) 1 VIAL SQ SCH ×4 (06:35→21:10)
[2019-04-11] MEDS: INSULIN (NOVOLOG) ASPART 100 UNITS/ML 10ML VIAL SQ SCH ×3 (07:46→16:59)
[2019-04-11] MEDS: PANTOPRAZOLE 20 MG TABLET (FP) PO SCH (10:22)
[2019-04-11] MEDS: PRENATAL VITAMINS W/ FOLIC ACID TABLET (FP) PO SCH (10:23)
[2019-04-11] MEDS: DIVALPROEX SODIUM 500 MG TABLET E.C. PO SCH ×2 (10:23→21:11)
[2019-04-11] MEDS ORDERED: INSULIN (NOVOLOG) ASPART 100 UNITS/ML 10ML VIAL ONE (11:49)
[2019-04-11] MEDS: INSULIN (LEVEMIR) 100 UNITS/ML UNITS SQ SCH (21:07)
[2019-04-11] MEDS: traZODone HCL 50 MG TABLET (FP) PO SCH (21:11)
[2019-04-11] MEDS: LISINOPRIL 10 MG TABLET (FP) PO SCH (21:12)
[2019-04-11] MEDS: QUEtiapine FUMARATE 300 MG TABLET PO SCH (21:12)
[2019-04-11] MEDS: THIAMINE HCL 100 MG TABLET (FP) PO SCH (21:12)
[2019-04-12] MEDS: metFORMIN HCL 500 MG TABLET (FP) PO SCH ×2 (06:15→16:31)
[2019-04-12] MEDS: GABAPENTIN 400 MG CAPSULE (FP) PO SCH ×3 (06:18→21:21)
[2019-04-12] MEDS ORDERED: INSULIN (NOVOLOG) ASPART 100 UNITS/ML 10ML VIAL ONE ×2 (06:21→11:58)
[2019-04-12] MEDS: INSULIN (NOVOLOG) ASPART 100 UNITS/ML 10ML VIAL SQ SCH ×3 (07:34→17:20)
[2019-04-12] MEDS: INSULIN SLIDING SCALE (NOVOLOG) 1 VIAL SQ SCH ×4 (07:34→21:25)
[2019-04-12] MEDS: DIVALPROEX SODIUM 500 MG TABLET E.C. PO SCH ×2 (10:05→21:21)
[2019-04-12] MEDS: PRENATAL VITAMINS W/ FOLIC ACID TABLET (FP) PO SCH (10:05)
[2019-04-12] MEDS: PANTOPRAZOLE 20 MG TABLET (FP) PO SCH (10:05)
[2019-04-12] MEDS: THIAMINE HCL 100 MG TABLET (FP) PO SCH (21:21)
[2019-04-12] MEDS: QUEtiapine FUMARATE 300 MG TABLET PO SCH (21:21)
[2019-04-12] MEDS: LISINOPRIL 10 MG TABLET (FP) PO SCH (21:21)
[2019-04-12] MEDS: traZODone HCL 50 MG TABLET (FP) PO SCH (21:21)
[2019-04-12] MEDS: INSULIN (LEVEMIR) 100 UNITS/ML UNITS SQ SCH (21:24)
[2019-04-13] MEDS: GABAPENTIN 400 MG CAPSULE (FP) PO SCH ×3 (06:05→21:02)
[2019-04-13] MEDS: metFORMIN HCL 500 MG TABLET (FP) PO SCH ×2 (06:56→16:36)
[2019-04-13] MEDS ORDERED: INSULIN (NOVOLOG) ASPART 100 UNITS/ML 10ML VIAL ONE (06:57)
[2019-04-13] MEDS: INSULIN SLIDING SCALE (NOVOLOG) 1 VIAL SQ SCH ×4 (06:57→21:01)
[2019-04-13] MEDS: DIVALPROEX SODIUM 500 MG TABLET E.C. PO SCH ×2 (10:09→21:03)
[2019-04-13] MEDS: PANTOPRAZOLE 20 MG TABLET (FP) PO SCH (10:09)
[2019-04-13] MEDS: PRENATAL VITAMINS W/ FOLIC ACID TABLET (FP) PO SCH (10:09)
[2019-04-13] MEDS: INSULIN (NOVOLOG) ASPART 100 UNITS/ML 10ML VIAL SQ SCH ×2 (11:34→17:47)
[2019-04-13] MEDS: IBUPROFEN 400 MG TABLET (FP) PO PRN (13:32)
[2019-04-13] MEDS: INSULIN (LEVEMIR) 100 UNITS/ML UNITS SQ SCH (21:01)
[2019-04-13] MEDS: QUEtiapine FUMARATE 300 MG TABLET PO SCH (21:03)
[2019-04-13] MEDS: traZODone HCL 50 MG TABLET (FP) PO SCH (21:03)
[2019-04-13] MEDS: THIAMINE HCL 100 MG TABLET (FP) PO SCH (21:03)
[2019-04-13] MEDS: LISINOPRIL 10 MG TABLET (FP) PO SCH (21:03)
[2019-04-14] MEDS: GABAPENTIN 400 MG CAPSULE (FP) PO SCH ×3 (06:00→21:31)
[2019-04-14] MEDS ORDERED: INSULIN (NOVOLOG) ASPART 100 UNITS/ML 10ML VIAL ONE ×2 (07:17→11:40)
[2019-04-14] MEDS: metFORMIN HCL 500 MG TABLET (FP) PO SCH ×2 (07:17→16:36)
[2019-04-14] MEDS: INSULIN SLIDING SCALE (NOVOLOG) 1 VIAL SQ SCH ×4 (07:17→21:30)
[2019-04-14] MEDS: INSULIN (NOVOLOG) ASPART 100 UNITS/ML 10ML VIAL SQ SCH ×4 (07:26→17:20)
[2019-04-14] MEDS: PRENATAL VITAMINS W/ FOLIC ACID TABLET (FP) PO SCH (10:13)
[2019-04-14] MEDS: PANTOPRAZOLE 20 MG TABLET (FP) PO SCH (10:13)
[2019-04-14] MEDS: DIVALPROEX SODIUM 500 MG TABLET E.C. PO SCH ×2 (10:13→21:31)
--- NOTE | 2019-04-14 12:41 | PN ---
[facility] Progress Note (SOAP) Subjective: patient with elevated Blood glucose, 423. asymptomatic Objective: General: no apparent distress Lungs: clear Heart: s1 s2 audible ABD; +BS. neuro: Cn 2-12 intact. 04/14/19 12:39 Assessment: DM2, uncontrolled, elevated BGM 04/14/19 12:40 Plan: Sliding scale dose increased by 2 units for each increment.
[2019-04-14] MEDS: IBUPROFEN 400 MG TABLET (FP) PO PRN (15:24)
[2019-04-14] MEDS: INSULIN (LEVEMIR) 100 UNITS/ML UNITS SQ SCH (21:30)
[2019-04-14] MEDS: traZODone HCL 50 MG TABLET (FP) PO SCH (21:31)
[2019-04-14] MEDS: QUEtiapine FUMARATE 300 MG TABLET PO SCH (21:31)
[2019-04-14] MEDS: LISINOPRIL 10 MG TABLET (FP) PO SCH (21:31)
[2019-04-14] MEDS: THIAMINE HCL 100 MG TABLET (FP) PO SCH (21:31)
[2019-04-15] MEDS: GABAPENTIN 400 MG CAPSULE (FP) PO SCH ×3 (06:09→21:42)
[2019-04-15] MEDS ORDERED: INSULIN (NOVOLOG) ASPART 100 UNITS/ML 10ML VIAL ONE ×3 (06:09→20:55)
[2019-04-15] MEDS: metFORMIN HCL 500 MG TABLET (FP) PO SCH ×2 (06:10→16:41)
[2019-04-15] MEDS: INSULIN SLIDING SCALE (NOVOLOG) 1 VIAL SQ SCH ×4 (07:06→21:43)
[2019-04-15] MEDS: INSULIN (NOVOLOG) ASPART 100 UNITS/ML 10ML VIAL SQ SCH ×3 (08:11→16:41)
[2019-04-15] MEDS: PANTOPRAZOLE 20 MG TABLET (FP) PO SCH (10:04)
[2019-04-15] MEDS: DIVALPROEX SODIUM 500 MG TABLET E.C. PO SCH ×2 (10:04→21:43)
[2019-04-15] MEDS: PRENATAL VITAMINS W/ FOLIC ACID TABLET (FP) PO SCH (10:04)
[2019-04-15] MEDS: IBUPROFEN 400 MG TABLET (FP) PO PRN (14:19)
[2019-04-15] MEDS: THIAMINE HCL 100 MG TABLET (FP) PO SCH (21:42)
[2019-04-15] MEDS: traZODone HCL 50 MG TABLET (FP) PO SCH (21:42)
[2019-04-15] MEDS: LISINOPRIL 10 MG TABLET (FP) PO SCH (21:43)
[2019-04-15] MEDS: INSULIN (LEVEMIR) 100 UNITS/ML UNITS SQ SCH (21:43)
[2019-04-15] MEDS: QUEtiapine FUMARATE 300 MG TABLET PO SCH (21:44)
[2019-04-16] MEDS: GABAPENTIN 400 MG CAPSULE (FP) PO SCH ×3 (06:07→21:00)
[2019-04-16] MEDS: INSULIN SLIDING SCALE (NOVOLOG) 1 VIAL SQ SCH ×4 (07:14→21:00)
[2019-04-16] MEDS: metFORMIN HCL 500 MG TABLET (FP) PO SCH ×2 (07:14→16:36)
[2019-04-16] MEDS: INSULIN (NOVOLOG) ASPART 100 UNITS/ML 10ML VIAL SQ SCH ×3 (07:41→17:30)
[2019-04-16] MEDS: PRENATAL VITAMINS W/ FOLIC ACID TABLET (FP) PO SCH (09:45)
[2019-04-16] MEDS: DIVALPROEX SODIUM 500 MG TABLET E.C. PO SCH ×2 (09:45→21:00)
[2019-04-16] MEDS: PANTOPRAZOLE 20 MG TABLET (FP) PO SCH (09:45)
[2019-04-16] MEDS ORDERED: INSULIN (NOVOLOG) ASPART 100 UNITS/ML 10ML VIAL ONE (11:51)
[2019-04-16] MEDS: traZODone HCL 50 MG TABLET (FP) PO SCH (21:00)
[2019-04-16] MEDS: LISINOPRIL 10 MG TABLET (FP) PO SCH (21:00)
[2019-04-16] MEDS: QUEtiapine FUMARATE 300 MG TABLET PO SCH (21:01)
[2019-04-16] MEDS: INSULIN (LEVEMIR) 100 UNITS/ML UNITS SQ SCH (21:01)
[2019-04-16] MEDS: THIAMINE HCL 100 MG TABLET (FP) PO SCH (21:01)
[2019-04-17] MEDS: GABAPENTIN 400 MG CAPSULE (FP) PO SCH ×3 (06:11→21:42)
[2019-04-17] MEDS: metFORMIN HCL 500 MG TABLET (FP) PO SCH ×2 (06:11→16:32)
[2019-04-17] MEDS: INSULIN (NOVOLOG) ASPART 100 UNITS/ML 10ML VIAL SQ SCH ×3 (07:27→16:58)
[2019-04-17] MEDS: INSULIN SLIDING SCALE (NOVOLOG) 1 VIAL SQ SCH ×4 (07:27→21:42)
[2019-04-17] MEDS: DIVALPROEX SODIUM 500 MG TABLET E.C. PO SCH ×2 (09:50→21:42)
[2019-04-17] MEDS: PANTOPRAZOLE 20 MG TABLET (FP) PO SCH (09:50)
[2019-04-17] MEDS: PRENATAL VITAMINS W/ FOLIC ACID TABLET (FP) PO SCH (09:50)
[2019-04-17] MEDS ORDERED: INSULIN (NOVOLOG) ASPART 100 UNITS/ML 10ML VIAL ONE (12:00)
[2019-04-17] MEDS: INSULIN (LEVEMIR) 100 UNITS/ML UNITS SQ SCH (21:41)
[2019-04-17] MEDS: QUEtiapine FUMARATE 300 MG TABLET PO SCH (21:42)
[2019-04-17] MEDS: THIAMINE HCL 100 MG TABLET (FP) PO SCH (21:42)
[2019-04-17] MEDS: traZODone HCL 50 MG TABLET (FP) PO SCH (21:42)
[2019-04-17] MEDS: LISINOPRIL 10 MG TABLET (FP) PO SCH (21:42)
[2019-04-18] MEDS: GABAPENTIN 400 MG CAPSULE (FP) PO SCH ×3 (06:14→21:08)
[2019-04-18] MEDS: metFORMIN HCL 500 MG TABLET (FP) PO SCH ×2 (06:14→16:48)
[2019-04-18] MEDS: INSULIN SLIDING SCALE (NOVOLOG) 1 VIAL SQ SCH ×4 (07:26→21:10)
[2019-04-18] MEDS: INSULIN (NOVOLOG) ASPART 100 UNITS/ML 10ML VIAL SQ SCH ×3 (07:27→17:17)
[2019-04-18] MEDS: DIVALPROEX SODIUM 500 MG TABLET E.C. PO SCH ×2 (09:33→21:08)
[2019-04-18] MEDS: PANTOPRAZOLE 20 MG TABLET (FP) PO SCH (09:33)
[2019-04-18] MEDS: PRENATAL VITAMINS W/ FOLIC ACID TABLET (FP) PO SCH (09:33)
[2019-04-18] MEDS ORDERED: INSULIN (NOVOLOG) ASPART 100 UNITS/ML 10ML VIAL ONE ×2 (11:24→11:28)
[2019-04-18] MEDS: LISINOPRIL 10 MG TABLET (FP) PO SCH (21:08)
[2019-04-18] MEDS: INSULIN (LEVEMIR) 100 UNITS/ML UNITS SQ SCH (21:09)
[2019-04-18] MEDS: traZODone HCL 50 MG TABLET (FP) PO SCH (21:09)
[2019-04-18] MEDS: QUEtiapine FUMARATE 300 MG TABLET PO SCH (21:09)
[2019-04-18] MEDS: THIAMINE HCL 100 MG TABLET (FP) PO SCH (21:09)
[2019-04-19] MEDS: GABAPENTIN 400 MG CAPSULE (FP) PO SCH ×3 (06:18→21:48)
[2019-04-19] MEDS: metFORMIN HCL 500 MG TABLET (FP) PO SCH ×2 (06:18→17:24)
[2019-04-19] MEDS: INSULIN SLIDING SCALE (NOVOLOG) 1 VIAL SQ SCH ×4 (07:39→21:54)
[2019-04-19] MEDS: INSULIN (NOVOLOG) ASPART 100 UNITS/ML 10ML VIAL SQ SCH ×3 (07:39→17:27)
[2019-04-19] MEDS: PRENATAL VITAMINS W/ FOLIC ACID TABLET (FP) PO SCH (09:49)
[2019-04-19] MEDS: PANTOPRAZOLE 20 MG TABLET (FP) PO SCH (09:49)
[2019-04-19] MEDS: DIVALPROEX SODIUM 500 MG TABLET E.C. PO SCH ×2 (09:49→21:50)
[2019-04-19] MEDS ORDERED: INSULIN (NOVOLOG) ASPART 100 UNITS/ML 10ML VIAL ONE ×3 (11:38→22:11)
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
[2019-04-19] MEDS: THIAMINE HCL 100 MG TABLET (FP) PO SCH (21:48)
[2019-04-19] MEDS: LISINOPRIL 10 MG TABLET (FP) PO SCH (21:49)
[2019-04-19] MEDS: traZODone HCL 50 MG TABLET (FP) PO SCH (21:50)
[2019-04-19] MEDS: BACITRACIN 15 GM TUBE TOPICAL OINTMENT TP SCH (21:50)
[2019-04-19] MEDS: QUEtiapine FUMARATE 300 MG TABLET PO SCH (21:50)
[2019-04-19] MEDS: INSULIN (LEVEMIR) 100 UNITS/ML UNITS SQ SCH (21:52)
[2019-04-20] MEDS: GABAPENTIN 400 MG CAPSULE (FP) PO SCH ×3 (06:08→21:02)
[2019-04-20] MEDS: metFORMIN HCL 500 MG TABLET (FP) PO SCH ×2 (06:08→16:21)
[2019-04-20] MEDS ORDERED: INSULIN (NOVOLOG) ASPART 100 UNITS/ML 10ML VIAL ONE ×2 (06:41→11:43)
[2019-04-20] MEDS: INSULIN (NOVOLOG) ASPART 100 UNITS/ML 10ML VIAL SQ SCH ×3 (07:44→17:59)
[2019-04-20] MEDS: INSULIN SLIDING SCALE (NOVOLOG) 1 VIAL SQ SCH ×4 (07:44→21:01)
[2019-04-20] MEDS: DIVALPROEX SODIUM 500 MG TABLET E.C. PO SCH ×2 (09:47→21:02)
[2019-04-20] MEDS: PRENATAL VITAMINS W/ FOLIC ACID TABLET (FP) PO SCH (09:47)
[2019-04-20] MEDS: PANTOPRAZOLE 20 MG TABLET (FP) PO SCH (09:47)
[2019-04-20] MEDS: BACITRACIN 15 GM TUBE TOPICAL OINTMENT TP SCH ×2 (09:48→21:03)
[2019-04-20] MEDS: INSULIN (LEVEMIR) 100 UNITS/ML UNITS SQ SCH (21:01)
[2019-04-20] MEDS: LISINOPRIL 10 MG TABLET (FP) PO SCH (21:02)
[2019-04-20] MEDS: THIAMINE HCL 100 MG TABLET (FP) PO SCH (21:02)
[2019-04-20] MEDS: traZODone HCL 50 MG TABLET (FP) PO SCH (21:02)
[2019-04-20] MEDS: QUEtiapine FUMARATE 300 MG TABLET PO SCH (21:03)
[2019-04-21] MEDS: metFORMIN HCL 500 MG TABLET (FP) PO SCH ×2 (06:00→16:51)
[2019-04-21] MEDS: GABAPENTIN 400 MG CAPSULE (FP) PO SCH ×3 (06:00→21:49)
[2019-04-21] MEDS: PRENATAL VITAMINS W/ FOLIC ACID TABLET (FP) PO SCH (10:02)
[2019-04-21] MEDS: BACITRACIN 15 GM TUBE TOPICAL OINTMENT TP SCH ×2 (10:02→21:49)
[2019-04-21] MEDS: PANTOPRAZOLE 20 MG TABLET (FP) PO SCH (10:02)
[2019-04-21] MEDS: DIVALPROEX SODIUM 500 MG TABLET E.C. PO SCH ×2 (10:02→21:49)
[2019-04-21] MEDS: INSULIN SLIDING SCALE (NOVOLOG) 1 VIAL SQ SCH ×4 (10:47→21:50)
[2019-04-21] MEDS: INSULIN (NOVOLOG) ASPART 100 UNITS/ML 10ML VIAL SQ SCH ×3 (10:48→17:27)
[2019-04-21] MEDS ORDERED: INSULIN (NOVOLOG) ASPART 100 UNITS/ML 10ML VIAL ONE (11:49)
[2019-04-21] MEDS: LISINOPRIL 10 MG TABLET (FP) PO SCH (21:49)
[2019-04-21] MEDS: THIAMINE HCL 100 MG TABLET (FP) PO SCH (21:49)
[2019-04-21] MEDS: INSULIN (LEVEMIR) 100 UNITS/ML UNITS SQ SCH (21:49)
[2019-04-21] MEDS: traZODone HCL 50 MG TABLET (FP) PO SCH (21:49)
[2019-04-21] MEDS: QUEtiapine FUMARATE 300 MG TABLET PO SCH (21:50)
[2019-04-22] MEDS: metFORMIN HCL 500 MG TABLET (FP) PO SCH ×2 (06:05→16:39)
[2019-04-22] MEDS: GABAPENTIN 400 MG CAPSULE (FP) PO SCH ×3 (06:05→21:00)
[2019-04-22] MEDS ORDERED: INSULIN (NOVOLOG) ASPART 100 UNITS/ML 10ML VIAL ONE ×2 (06:35→11:53)
[2019-04-22] MEDS: INSULIN SLIDING SCALE (NOVOLOG) 1 VIAL SQ SCH ×4 (07:38→21:01)
[2019-04-22] MEDS: INSULIN (NOVOLOG) ASPART 100 UNITS/ML 10ML VIAL SQ SCH ×3 (07:39→17:40)
[2019-04-22] MEDS: DIVALPROEX SODIUM 500 MG TABLET E.C. PO SCH ×2 (09:31→21:00)
[2019-04-22] MEDS: PRENATAL VITAMINS W/ FOLIC ACID TABLET (FP) PO SCH (09:31)
[2019-04-22] MEDS: BACITRACIN 15 GM TUBE TOPICAL OINTMENT TP SCH ×2 (09:31→21:01)
[2019-04-22] MEDS: PANTOPRAZOLE 20 MG TABLET (FP) PO SCH (09:32)
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
[2019-04-22] MEDS ORDERED: PT OWN MED DRAWER 7, Y5N ONE (12:05)
[2019-04-22] MEDS: LISINOPRIL 10 MG TABLET (FP) PO SCH (21:00)
[2019-04-22] MEDS: QUEtiapine FUMARATE 300 MG TABLET PO SCH (21:00)
[2019-04-22] MEDS: traZODone HCL 50 MG TABLET (FP) PO SCH (21:00)
[2019-04-22] MEDS: THIAMINE HCL 100 MG TABLET (FP) PO SCH (21:00)
[2019-04-22] MEDS: INSULIN (LEVEMIR) 100 UNITS/ML UNITS SQ SCH (21:01)
[2019-04-23] MEDS: metFORMIN HCL 500 MG TABLET (FP) PO SCH ×2 (06:08→16:31)
[2019-04-23] MEDS: GABAPENTIN 400 MG CAPSULE (FP) PO SCH ×3 (06:08→21:32)
[2019-04-23] MEDS ORDERED: INSULIN (NOVOLOG) ASPART 100 UNITS/ML 10ML VIAL ONE (06:28)
[2019-04-23] MEDS: INSULIN SLIDING SCALE (NOVOLOG) 1 VIAL SQ SCH ×4 (06:33→21:30)
[2019-04-23] MEDS: INSULIN (NOVOLOG) ASPART 100 UNITS/ML 10ML VIAL SQ SCH ×3 (07:37→17:21)
[2019-04-23] MEDS: PANTOPRAZOLE 20 MG TABLET (FP) PO SCH (09:31)
[2019-04-23] MEDS: DIVALPROEX SODIUM 500 MG TABLET E.C. PO SCH ×2 (09:31→21:32)
[2019-04-23] MEDS: PRENATAL VITAMINS W/ FOLIC ACID TABLET (FP) PO SCH (09:31)
[2019-04-23] MEDS: BACITRACIN 15 GM TUBE TOPICAL OINTMENT TP SCH ×2 (09:32→21:32)
[2019-04-23] MEDS: INSULIN (LEVEMIR) 100 UNITS/ML UNITS SQ SCH (21:30)
[2019-04-23] MEDS: LISINOPRIL 10 MG TABLET (FP) PO SCH (21:31)
[2019-04-23] MEDS: traZODone HCL 50 MG TABLET (FP) PO SCH (21:31)
[2019-04-23] MEDS: THIAMINE HCL 100 MG TABLET (FP) PO SCH (21:31)
[2019-04-23] MEDS: QUEtiapine FUMARATE 300 MG TABLET PO SCH (21:32)
[2019-04-24] MEDS: GABAPENTIN 400 MG CAPSULE (FP) PO SCH ×3 (06:05→21:06)
[2019-04-24] MEDS: metFORMIN HCL 500 MG TABLET (FP) PO SCH ×2 (06:09→16:59)
[2019-04-24] MEDS ORDERED: INSULIN (NOVOLOG) ASPART 100 UNITS/ML 10ML VIAL ONE ×4 (06:10→21:11)
[2019-04-24] MEDS: INSULIN SLIDING SCALE (NOVOLOG) 1 VIAL SQ SCH ×4 (06:33→21:12)
[2019-04-24] MEDS: INSULIN (NOVOLOG) ASPART 100 UNITS/ML 10ML VIAL SQ SCH ×3 (07:33→17:00)
[2019-04-24] MEDS: PRENATAL VITAMINS W/ FOLIC ACID TABLET (FP) PO SCH (09:38)
[2019-04-24] MEDS: DIVALPROEX SODIUM 500 MG TABLET E.C. PO SCH ×2 (09:38→21:06)
[2019-04-24] MEDS: PANTOPRAZOLE 20 MG TABLET (FP) PO SCH (09:38)
[2019-04-24] MEDS: BACITRACIN 15 GM TUBE TOPICAL OINTMENT TP SCH ×2 (10:28→21:07)
[2019-04-24] MEDS ORDERED: PT OWN MED DRAWER 7, Y5N ONE (20:26)
[2019-04-24] MEDS: LISINOPRIL 10 MG TABLET (FP) PO SCH (21:07)
[2019-04-24] MEDS: traZODone HCL 50 MG TABLET (FP) PO SCH (21:07)
[2019-04-24] MEDS: THIAMINE HCL 100 MG TABLET (FP) PO SCH (21:07)
[2019-04-24] MEDS: QUEtiapine FUMARATE 300 MG TABLET PO SCH (21:07)
[2019-04-24] MEDS: INSULIN (LEVEMIR) 100 UNITS/ML UNITS SQ SCH (21:11)
[2019-04-25] MEDS: GABAPENTIN 400 MG CAPSULE (FP) PO SCH ×3 (05:54→21:06)
[2019-04-25] MEDS: metFORMIN HCL 500 MG TABLET (FP) PO SCH ×2 (07:08→16:28)
[2019-04-25] MEDS: INSULIN SLIDING SCALE (NOVOLOG) 1 VIAL SQ SCH ×4 (07:10→21:07)
[2019-04-25] MEDS ORDERED: INSULIN (NOVOLOG) ASPART 100 UNITS/ML 10ML VIAL ONE ×2 (07:10→11:33)
[2019-04-25] MEDS: INSULIN (NOVOLOG) ASPART 100 UNITS/ML 10ML VIAL SQ SCH ×3 (07:11→16:29)
[2019-04-25] MEDS: PANTOPRAZOLE 20 MG TABLET (FP) PO SCH (09:40)
[2019-04-25] MEDS: BACITRACIN 15 GM TUBE TOPICAL OINTMENT TP SCH ×2 (09:40→21:06)
[2019-04-25] MEDS: PRENATAL VITAMINS W/ FOLIC ACID TABLET (FP) PO SCH (09:40)
[2019-04-25] MEDS: DIVALPROEX SODIUM 500 MG TABLET E.C. PO SCH ×2 (09:40→21:06)
[2019-04-25] MEDS: THIAMINE HCL 100 MG TABLET (FP) PO SCH (21:04)
[2019-04-25] MEDS: QUEtiapine FUMARATE 300 MG TABLET PO SCH (21:06)
[2019-04-25] MEDS: LISINOPRIL 10 MG TABLET (FP) PO SCH (21:06)
[2019-04-25] MEDS: traZODone HCL 50 MG TABLET (FP) PO SCH (21:06)
[2019-04-25] MEDS: INSULIN (LEVEMIR) 100 UNITS/ML UNITS SQ SCH (21:07)
[2019-04-26] MEDS: GABAPENTIN 400 MG CAPSULE (FP) PO SCH ×3 (05:58→21:11)
[2019-04-26] MEDS: metFORMIN HCL 500 MG TABLET (FP) PO SCH ×2 (06:00→16:44)
[2019-04-26] MEDS: INSULIN (NOVOLOG) ASPART 100 UNITS/ML 10ML VIAL SQ SCH ×3 (07:26→17:44)
[2019-04-26] MEDS: INSULIN SLIDING SCALE (NOVOLOG) 1 VIAL SQ SCH ×4 (07:26→21:10)
[2019-04-26] MEDS ORDERED: INSULIN (NOVOLOG) ASPART 100 UNITS/ML 10ML VIAL ONE ×2 (07:27→11:45)
[2019-04-26] MEDS: PRENATAL VITAMINS W/ FOLIC ACID TABLET (FP) PO SCH (09:39)
[2019-04-26] MEDS: BACITRACIN 15 GM TUBE TOPICAL OINTMENT TP SCH (09:39)
[2019-04-26] MEDS: DIVALPROEX SODIUM 500 MG TABLET E.C. PO SCH ×2 (09:39→21:11)
[2019-04-26] MEDS: PANTOPRAZOLE 20 MG TABLET (FP) PO SCH (09:39)
--- NOTE | 2019-04-26 09:54 | PN ---
[facility] Progress Note Note: Patient is scheduled for discharge tomorrow. Scripts for 30 days supply of medications(Seroquel 300 mg/hs, Depakote 500 mg/bid, Trazadone 150 mg/hs) will be electronically transmitted to [facility] at [address] [place] [address]
--- NOTE | 2019-04-26 11:41 | PN ---
[facility] Progress Note Note: Patient scheduled for discharge 04/27/19 at 9am. Patient's home meds sent to preferred pharmacy except for Insulin as he has medication in personal property. Patient has aftercare arranged for [facility] on 04/28/19 at 10am. Vital Signs Period Temp Pulse Resp BP Sys/[place] Pulse Ox Last 24 Hr 98 F 89-89 18-18 125-136/77-83 Laboratory Tests 04/09/19 04/09/19 04/09/19 14:00 14:37 14:37 WBC 3.8 L RBC 5.24 Hgb 15.2 Hct 45.1 D MCV 86.1 MCH 29.1 MCHC 33.8 RDW 13.7 Plt Count 232 D MPV 9.8 D Sodium 128 L Potassium 5.1 Chloride 92 L Carbon Dioxide 28 Anion Gap 8 BUN 20.2 H Creatinine 1.1 Est GFR (CKD-EPI)AfAm 86.52 Est GFR (CKD-EPI)NonAf 74.65 POC Glucometer > 600 Random Glucose 830 H* Calcium 9.8 Total Bilirubin 0.4 AST 16 ALT 35 Alkaline Phosphatase 117 Total Protein 8.2 Albumin 4.0 Urine Color Urine Appearance Urine pH Ur Specific [place] Urine Protein Urine Glucose (UA) Urine Ketones Urine Blood Urine Nitrite Urine Bilirubin Urine Urobilinogen Ur Leukocyte Esterase Valproic Acid RPR Titer 04/09/19 04/09/19 04/09/19 14:37 16:35 17:21 WBC RBC Hgb Hct MCV MCH MCHC RDW Plt Count MPV Sodium Potassium Chloride Carbon Dioxide Anion Gap BUN Creatinine Est GFR (CKD-EPI)AfAm Est GFR (CKD-EPI)NonAf POC Glucometer > 600 > 600 Random Glucose Calcium Total Bilirubin AST ALT Alkaline Phosphatase Total Protein Albumin Urine Color Urine Appearance Urine pH Ur Specific [place] Urine Protein Urine Glucose (UA) Urine Ketones Urine Blood Urine Nitrite Urine Bilirubin Urine Urobilinogen Ur Leukocyte Esterase Valproic Acid RPR Titer Nonreactive 04/09/19 04/10/19 04/10/19 21:10 05:47 06:00 WBC RBC Hgb Hct MCV MCH MCHC RDW Plt Count MPV Sodium Potassium Chloride Carbon Dioxide Anion Gap BUN Creatinine Est GFR (CKD-EPI)AfAm Est GFR (CKD-EPI)NonAf POC Glucometer [phone] Random Glucose Calcium Total Bilirubin AST ALT Alkaline Phosphatase Total Protein Albumin Urine Color Urine Appearance Urine pH Ur Specific [place] Urine Protein Urine Glucose (UA) Urine Ketones Urine Blood Urine Nitrite Urine Bilirubin Urine Urobilinogen Ur Leukocyte Esterase Valproic Acid 6.6 L RPR Titer 04/10/19 04/10/19 04/10/19 11:56 15:45 16:20 WBC RBC Hgb Hct MCV MCH MCHC RDW Plt Count MPV Sodium Potassium Chloride Carbon Dioxide Anion Gap BUN Creatinine Est GFR (CKD-EPI)AfAm Est GFR (CKD-EPI)NonAf POC Glucometer [phone] Random Glucose Calcium Total Bilirubin AST ALT Alkaline Phosphatase Total Protein Albumin Urine Color Yellow Urine Appearance Clear Urine pH 5.5 Ur Specific [place] 1.039 H Urine Protein Negative Urine Glucose (UA) 3+ H Urine Ketones Negative Urine Blood Negative Urine Nitrite Negative Urine Bilirubin Negative Urine Urobilinogen 0.2 Ur Leukocyte Esterase Negative Valproic Acid RPR Titer 04/10/19 04/10/19 04/11/19 16:22 21:51 06:31 WBC RBC Hgb Hct MCV MCH MCHC RDW Plt Count MPV Sodium Potassium Chloride Carbon Dioxide Anion Gap BUN Creatinine Est GFR (CKD-EPI)AfAm Est GFR (CKD-EPI)NonAf POC Glucometer > [phone] Random Glucose Calcium Total Bilirubin AST ALT Alkaline Phosphatase Total Protein Albumin Urine Color Urine Appearance Urine pH Ur Specific [place] Urine Protein Urine Glucose (UA) Urine Ketones Urine Blood Urine Nitrite Urine Bilirubin Urine Urobilinogen Ur Leukocyte Esterase Valproic Acid RPR Titer 04/11/19 04/11/19 04/11/19 11:47 16:57 20:39 WBC RBC Hgb Hct MCV MCH MCHC RDW Plt Count MPV Sodium Potassium Chloride Carbon Dioxide Anion Gap BUN Creatinine Est GFR (CKD-EPI)AfAm Est GFR (CKD-EPI)NonAf POC Glucometer [phone] Random Glucose Calcium Total Bilirubin AST ALT Alkaline Phosphatase Total Protein Albumin Urine Color Urine Appearance Urine pH Ur Specific [place] Urine Protein Urine Glucose (UA) Urine Ketones Urine Blood Urine Nitrite Urine Bilirubin Urine Urobilinogen Ur Leukocyte Esterase Valproic Acid RPR Titer 04/12/19 04/12/19 04/12/19 06:17 11:53 16:32 WBC RBC Hgb Hct MCV MCH MCHC RDW Plt Count MPV Sodium Potassium Chloride Carbon Dioxide Anion Gap BUN Creatinine Est GFR (CKD-EPI)AfAm Est GFR (CKD-EPI)NonAf POC Glucometer [phone] Random Glucose Calcium Total Bilirubin AST ALT Alkaline Phosphatase Total Protein Albumin Urine Color Urine Appearance Urine pH Ur Specific [place] Urine Protein Urine Glucose (UA) Urine Ketones Urine Blood Urine Nitrite Urine Bilirubin Urine Urobilinogen Ur Leukocyte Esterase Valproic Acid RPR Titer 04/12/19 04/12/19 04/13/19 17:07 21:23 06:04 WBC RBC Hgb Hct MCV MCH MCHC RDW Plt Count MPV Sodium Potassium Chloride Carbon Dioxide Anion Gap BUN Creatinine Est GFR (CKD-EPI)AfAm Est GFR (CKD-EPI)NonAf POC Glucometer [phone] Random Glucose Calcium Total Bilirubin AST ALT Alkaline Phosphatase Total Protein Albumin Urine Color Urine Appearance Urine pH Ur Specific [place] Urine Protein Urine Glucose (UA) Urine Ketones Urine Blood Urine Nitrite Urine Bilirubin Urine Urobilinogen Ur Leukocyte Esterase Valproic Acid RPR Titer 04/13/19 04/13/19 04/13/19 11:28 16:37 20:59 WBC RBC Hgb Hct MCV MCH MCHC RDW Plt Count MPV Sodium Potassium Chloride Carbon Dioxide Anion Gap BUN Creatinine Est GFR (CKD-EPI)AfAm Est GFR (CKD-EPI)NonAf POC Glucometer [phone] Random Glucose Calcium Total Bilirubin AST ALT Alkaline Phosphatase Total Protein Albumin Urine Color Urine Appearance Urine pH Ur Specific [place] Urine Protein Urine Glucose (UA) Urine Ketones Urine Blood Urine Nitrite Urine Bilirubin Urine Urobilinogen Ur Leukocyte Esterase Valproic Acid RPR Titer 04/14/19 04/14/19 04/14/19 05:56 11:38 16:36 WBC RBC Hgb Hct MCV MCH MCHC RDW Plt Count MPV Sodium Potassium Chloride Carbon Dioxide Anion Gap BUN Creatinine Est GFR (CKD-EPI)AfAm Est GFR (CKD-EPI)NonAf POC Glucometer [phone] Random Glucose Calcium Total Bilirubin AST ALT Alkaline Phosphatase Total Protein Albumin Urine Color Urine Appearance Urine pH Ur Specific [place] Urine Protein Urine Glucose (UA) Urine Ketones Urine Blood Urine Nitrite Urine Bilirubin Urine Urobilinogen Ur Leukocyte Esterase Valproic Acid RPR Titer 04/14/19 04/15/19 04/15/19 21:28 06:06 11:38 WBC RBC Hgb Hct MCV MCH MCHC RDW Plt Count MPV Sodium Potassium Chloride Carbon Dioxide Anion Gap BUN Creatinine Est GFR (CKD-EPI)AfAm Est GFR (CKD-EPI)NonAf POC Glucometer [phone] Random Glucose Calcium Total Bilirubin AST ALT Alkaline Phosphatase Total Protein Albumin Urine Color Urine Appearance Urine pH Ur Specific [place] Urine Protein Urine Glucose (UA) Urine Ketones Urine Blood Urine Nitrite Urine Bilirubin Urine Urobilinogen Ur Leukocyte Esterase Valproic Acid RPR Titer 04/15/19 04/15/19 04/16/19 16:36 20:24 06:05 WBC RBC Hgb Hct MCV MCH MCHC RDW Plt Count MPV Sodium Potassium Chloride Carbon Dioxide Anion Gap BUN Creatinine Est GFR (CKD-EPI)AfAm Est GFR (CKD-EPI)NonAf POC Glucometer [phone] Random Glucose Calcium Total Bilirubin AST ALT Alkaline Phosphatase Total Protein Albumin Urine Color Urine Appearance Urine pH Ur Specific [place] Urine Protein Urine Glucose (UA) Urine Ketones Urine Blood Urine Nitrite Urine Bilirubin Urine Urobilinogen Ur Leukocyte Esterase Valproic Acid RPR Titer 04/16/19 04/16/19 04/16/19 11:48 16:36 20:53 WBC RBC Hgb Hct MCV MCH MCHC RDW Plt Count MPV Sodium Potassium Chloride Carbon Dioxide Anion Gap BUN Creatinine Est GFR (CKD-EPI)AfAm Est GFR (CKD-EPI)NonAf POC Glucometer [phone] Random Glucose Calcium Total Bilirubin AST ALT Alkaline Phosphatase Total Protein Albumin Urine Color Urine Appearance Urine pH Ur Specific [place] Urine Protein Urine Glucose (UA) Urine Ketones Urine Blood Urine Nitrite Urine Bilirubin Urine Urobilinogen Ur Leukocyte Esterase Valproic Acid RPR Titer 04/17/19 04/17/19 04/17/19 06:10 11:58 16:33 WBC RBC Hgb Hct MCV MCH MCHC RDW Plt Count MPV Sodium Potassium Chloride Carbon Dioxide Anion Gap BUN Creatinine Est GFR (CKD-EPI)AfAm Est GFR (CKD-EPI)NonAf POC Glucometer [phone] Random Glucose Calcium Total Bilirubin AST ALT Alkaline Phosphatase Total Protein Albumin Urine Color Urine Appearance Urine pH Ur Specific [place] Urine Protein Urine Glucose (UA) Urine Ketones Urine Blood Urine Nitrite Urine Bilirubin Urine Urobilinogen Ur Leukocyte Esterase Valproic Acid RPR Titer 04/17/19 04/18/19 04/18/19 21:39 06:13 11:23 WBC RBC Hgb Hct MCV MCH MCHC RDW Plt Count MPV Sodium Potassium Chloride Carbon Dioxide Anion Gap BUN Creatinine Est GFR (CKD-EPI)AfAm Est GFR (CKD-EPI)NonAf POC Glucometer [phone] Random Glucose Calcium Total Bilirubin AST ALT Alkaline Phosphatase Total Protein Albumin Urine Color Urine Appearance Urine pH Ur Specific [place] Urine Protein Urine Glucose (UA) Urine Ketones Urine Blood Urine Nitrite Urine Bilirubin Urine Urobilinogen Ur Leukocyte Esterase Valproic Acid RPR Titer 04/18/19 04/18/19 04/19/19 16:49 21:05 06:18 WBC RBC Hgb Hct MCV MCH MCHC RDW Plt Count MPV Sodium Potassium Chloride Carbon Dioxide Anion Gap BUN Creatinine Est GFR (CKD-EPI)AfAm Est GFR (CKD-EPI)NonAf POC Glucometer [phone] Random Glucose Calcium Total Bilirubin AST ALT Alkaline Phosphatase Total Protein Albumin Urine Color Urine Appearance Urine pH Ur Specific [place] Urine Protein Urine Glucose (UA) Urine Ketones Urine Blood Urine Nitrite Urine Bilirubin Urine Urobilinogen Ur Leukocyte Esterase Valproic Acid RPR Titer 04/19/19 04/19/19 04/19/19 11:36 16:48 21:46 WBC RBC Hgb Hct MCV MCH MCHC RDW Plt Count MPV Sodium Potassium Chloride Carbon Dioxide Anion Gap BUN Creatinine Est GFR (CKD-EPI)AfAm Est GFR (CKD-EPI)NonAf POC Glucometer [phone] Random Glucose Calcium Total Bilirubin AST ALT Alkaline Phosphatase Total Protein Albumin Urine Color Urine Appearance Urine pH Ur Specific [place] Urine Protein Urine Glucose (UA) Urine Ketones Urine Blood Urine Nitrite Urine Bilirubin Urine Urobilinogen Ur Leukocyte Esterase Valproic Acid RPR Titer 04/20/19 04/20/19 04/20/19 06:07 11:40 16:19 WBC RBC Hgb Hct MCV MCH MCHC RDW Plt Count MPV Sodium Potassium Chloride Carbon Dioxide Anion Gap BUN Creatinine Est GFR (CKD-EPI)AfAm Est GFR (CKD-EPI)NonAf POC Glucometer [phone] Random Glucose Calcium Total Bilirubin AST ALT Alkaline Phosphatase Total Protein Albumin Urine Color Urine Appearance Urine pH Ur Specific [place] Urine Protein Urine Glucose (UA) Urine Ketones Urine Blood Urine Nitrite Urine Bilirubin Urine Urobilinogen Ur Leukocyte Esterase Valproic Acid RPR Titer 04/20/19 04/21/19 04/21/19 20:59 05:59 11:46 WBC RBC Hgb Hct MCV MCH MCHC RDW Plt Count MPV Sodium Potassium Chloride Carbon Dioxide Anion Gap BUN Creatinine Est GFR (CKD-EPI)AfAm Est GFR (CKD-EPI)NonAf POC Glucometer [phone] Random Glucose Calcium Total Bilirubin AST ALT Alkaline Phosphatase Total Protein Albumin Urine Color Urine Appearance Urine pH Ur Specific [place] Urine Protein Urine Glucose (UA) Urine Ketones Urine Blood Urine Nitrite Urine Bilirubin Urine Urobilinogen Ur Leukocyte Esterase Valproic Acid RPR Titer 04/21/19 04/21/19 04/22/19 16:49 21:47 06:04 WBC RBC Hgb Hct MCV MCH MCHC RDW Plt Count MPV Sodium Potassium Chloride Carbon Dioxide Anion Gap BUN Creatinine Est GFR (CKD-EPI)AfAm Est GFR (CKD-EPI)NonAf POC Glucometer [phone] Random Glucose Calcium Total Bilirubin AST ALT Alkaline Phosphatase Total Protein Albumin Urine Color Urine Appearance Urine pH Ur Specific [place] Urine Protein Urine Glucose (UA) Urine Ketones Urine Blood Urine Nitrite Urine Bilirubin Urine Urobilinogen Ur Leukocyte Esterase Valproic Acid RPR Titer 04/22/19 04/22/19 04/22/19 11:51 16:41 20:55 WBC RBC Hgb Hct MCV MCH MCHC RDW Plt Count MPV Sodium Potassium Chloride Carbon Dioxide Anion Gap BUN Creatinine Est GFR (CKD-EPI)AfAm Est GFR (CKD-EPI)NonAf POC Glucometer [phone] Random Glucose Calcium Total Bilirubin AST ALT Alkaline Phosphatase Total Protein Albumin Urine Color Urine Appearance Urine pH Ur Specific [place] Urine Protein Urine Glucose (UA) Urine Ketones Urine Blood Urine Nitrite Urine Bilirubin Urine Urobilinogen Ur Leukocyte Esterase Valproic Acid RPR Titer 04/23/19 04/23/19 04/23/19 06:07 11:46 16:32 WBC RBC Hgb Hct MCV MCH MCHC RDW Plt Count MPV Sodium Potassium Chloride Carbon Dioxide Anion Gap BUN Creatinine Est GFR (CKD-EPI)AfAm Est GFR (CKD-EPI)NonAf POC Glucometer [phone] Random Glucose Calcium Total Bilirubin AST ALT Alkaline Phosphatase Total Protein Albumin Urine Color Urine Appearance Urine pH Ur Specific [place] Urine Protein Urine Glucose (UA) Urine Ketones Urine Blood Urine Nitrite Urine Bilirubin Urine Urobilinogen Ur Leukocyte Esterase Valproic Acid RPR Titer 04/23/19 04/24/19 04/24/19 21:27 06:07 11:38 WBC RBC Hgb Hct MCV MCH MCHC RDW Plt Count MPV Sodium Potassium Chloride Carbon Dioxide Anion Gap BUN Creatinine Est GFR (CKD-EPI)AfAm Est GFR (CKD-EPI)NonAf POC Glucometer [phone] Random Glucose Calcium Total Bilirubin AST ALT Alkaline Phosphatase Total Protein Albumin Urine Color Urine Appearance Urine pH Ur Specific [place] Urine Protein Urine Glucose (UA) Urine Ketones Urine Blood Urine Nitrite Urine Bilirubin Urine Urobilinogen Ur Leukocyte Esterase Valproic Acid RPR Titer 04/24/19 04/24/19 04/25/19 16:23 21:05 05:56 WBC RBC Hgb Hct MCV MCH MCHC RDW Plt Count MPV Sodium Potassium Chloride Carbon Dioxide Anion Gap BUN Creatinine Est GFR (CKD-EPI)AfAm Est GFR (CKD-EPI)NonAf POC Glucometer [phone] Random Glucose Calcium Total Bilirubin AST ALT Alkaline Phosphatase Total Protein Albumin Urine Color Urine Appearance Urine pH Ur Specific [place] Urine Protein Urine Glucose (UA) Urine Ketones Urine Blood Urine Nitrite Urine Bilirubin Urine Urobilinogen Ur Leukocyte Esterase Valproic Acid RPR Titer 04/25/19 04/25/19 04/25/19 11:31 16:27 21:05 WBC RBC Hgb Hct MCV MCH MCHC RDW Plt Count MPV Sodium Potassium Chloride Carbon Dioxide Anion Gap BUN Creatinine Est GFR (CKD-EPI)AfAm Est GFR (CKD-EPI)NonAf POC Glucometer [phone] Random Glucose Calcium Total Bilirubin AST ALT Alkaline Phosphatase Total Protein Albumin Urine Color Urine Appearance Urine pH Ur Specific [place] Urine Protein Urine Glucose (UA) Urine Ketones Urine Blood Urine Nitrite Urine Bilirubin Urine Urobilinogen Ur Leukocyte Esterase Valproic Acid RPR Titer 04/26/19 05:57 WBC RBC Hgb Hct MCV MCH MCHC RDW Plt Count MPV Sodium Potassium Chloride Carbon Dioxide Anion Gap BUN Creatinine Est GFR (CKD-EPI)AfAm Est GFR (CKD-EPI)NonAf POC Glucometer 250 Random Glucose Calcium Total Bilirubin AST ALT Alkaline Phosphatase Total Protein Albumin Urine Color Urine Appearance Urine pH Ur Specific [place] Urine Protein Urine Glucose (UA) Urine Ketones Urine Blood Urine Nitrite Urine Bilirubin Urine Urobilinogen Ur Leukocyte Esterase Valproic Acid RPR Titer
[2019-04-26] MEDS: INSULIN (LEVEMIR) 100 UNITS/ML UNITS SQ SCH (21:10)
[2019-04-26] MEDS: QUEtiapine FUMARATE 300 MG TABLET PO SCH (21:11)
[2019-04-26] MEDS: traZODone HCL 50 MG TABLET (FP) PO SCH (21:11)
[2019-04-26] MEDS: LISINOPRIL 10 MG TABLET (FP) PO SCH (21:11)
[2019-04-26] MEDS: THIAMINE HCL 100 MG TABLET (FP) PO SCH (21:11)
[2019-04-27] MEDS ORDERED: INSULIN (NOVOLOG) ASPART 100 UNITS/ML 10ML VIAL ONE ×2 (06:00→06:31)
[2019-04-27] MEDS: GABAPENTIN 400 MG CAPSULE (FP) PO SCH (06:03)
[2019-04-27] MEDS: metFORMIN HCL 500 MG TABLET (FP) PO SCH (06:03)
[2019-04-27 07:08] VITALS: BP 118/72; PULSE 92; TEMP 98.2
[2019-04-27] MEDS: INSULIN SLIDING SCALE (NOVOLOG) 1 VIAL SQ SCH (07:57)
[2019-04-27] MEDS: INSULIN (NOVOLOG) ASPART 100 UNITS/ML 10ML VIAL SQ SCH (07:57)
[2019-04-27] MEDS: PRENATAL VITAMINS W/ FOLIC ACID TABLET (FP) PO SCH (09:00)
[2019-04-27] MEDS: PANTOPRAZOLE 20 MG TABLET (FP) PO SCH (09:00)
[2019-04-27] MEDS: DIVALPROEX SODIUM 500 MG TABLET E.C. PO SCH (09:00)
== END 2019-04-27 09:18 | disposition home or self-care (01) | DRG 895 ==
LOC: YASAS 11:27 → Y3W 14:27
PROVIDERS: ADMIT Neuromusculoskeletal Medicine & OMM; ATTEND Neuromusculoskeletal Medicine & OMM
PROC: HZ42ZZZ Group Counseling for Substance Abuse Treatment, Cognitive-Behavioral (ICD-10-PCS; principal; 2019-04-09)
DX: F19.20 Other psychoactive substance dependence, uncomplicated (principal); F14.20 Cocaine dependence, uncomplicated; F10.20 Alcohol dependence, uncomplicated; F25.9 Schizoaffective disorder, unspecified; I10 Essential (primary) hypertension; E11.65 Type 2 diabetes mellitus with hyperglycemia; K21.9 Gastro-esophageal reflux disease without esophagitis; G62.9 Polyneuropathy, unspecified; M54.40 Lumbago with sciatica, unspecified side; R00.0 Tachycardia, unspecified; S20.319A Abrasion of unspecified front wall of thorax, initial encounter; Y04.0XXA Assault by unarmed brawl or fight, initial encounter; Y93.9 Activity, unspecified; Y92.239 Unspecified place in hospital as the place of occurrence of the external cause; Z91.013 Allergy to seafood
CPT/HCPCS: 36415; 71046-TC-FY; 80053; 80164; 81003; 82962; 85027; 86593

== ENCOUNTER 2020-12-21 10:20 | Inpatient (IN) | payer OTHER ==
[2020-12-21 10:57] VITALS: BMI 26.2
[2020-12-21] MEDS ORDERED: P-EPHED 60MG/TRIPROLIDI 2.5MG TABLET PO PRN (12:50)
[2020-12-21] MEDS ORDERED: ACETAMINOPHEN 325 MG TABLET (FP) PO PRN (12:50)
[2020-12-21] MEDS ORDERED: LOPERAMIDE HCL 2 MG CAPSULE PO PRN (12:50)
[2020-12-21] MEDS ORDERED: guaiFENesin 200 MG/10 ML 10 ML UNIT-DOSE CUPS PO PRN (12:50)
[2020-12-21] MEDS ORDERED: MAGNESIUM CITRATE 300 ML BOTTLE PO PRN (12:50)
[2020-12-21] MEDS ORDERED: MAGNESIUM HYDROX 2400MG/30ML ORAL SUSPENSION 30 ML CUP PO PRN (12:50)
[2020-12-21] MEDS ORDERED: hydrOXYzine PAMOATE 25 MG CAPSULE (FP) PO SCH (14:00)
[2020-12-21] MEDS ORDERED: INSULIN (NOVOLOG) ASPART 100 UNITS/ML 10ML VIAL SQ ONE (15:06)
[2020-12-21] MEDS: PRENATAL VITAMINS W/ FOLIC ACID TABLET (FP) PO SCH (15:47)
[2020-12-21] MEDS: GABAPENTIN 400 MG CAPSULE PO SCH ×2 (15:49→22:12)
[2020-12-21] MEDS: IBUPROFEN 400 MG TABLET (FP) PO PRN ×2 (15:50→22:14)
[2020-12-21] MEDS ORDERED: hydrOXYzine PAMOATE 25 MG CAPSULE (FP) PO PRN (16:02)
[2020-12-21] MEDS: INSULIN (NOVOLOG) ASPART 100 UNITS/ML 10ML VIAL SQ SCH ×2 (16:12→22:17)
[2020-12-21] MEDS: metFORMIN HCL 500 MG TABLET (FP) PO SCH (17:28)
[2020-12-21] MEDS: MAG HYDROX/AL HYDROX/SIMETH 30 ML UNIT-DOSE CUP PO PRN (19:23)
[2020-12-21] MEDS ORDERED: INSULIN (NOVOLOG) ASPART 100 UNITS/ML 10ML VIAL ONE (22:10)
[2020-12-21] MEDS ORDERED: MASKS NR ONE (22:11)
[2020-12-21] MEDS: LISINOPRIL 10 MG TABLET PO SCH (22:13)
[2020-12-21] MEDS: ATORVASTATIN CA 40 MG TABLET (FP) PO SCH (22:13)
[2020-12-21] MEDS: MELATONIN 5 MG TABLETS PO SCH (22:14)
[2020-12-21] MEDS: THIAMINE HCL 100 MG TABLET (FP) PO SCH (22:14)
[2020-12-21] MEDS: INSULIN (LEVEMIR) 100 UNITS/ML UNITS SQ SCH (22:17)
[2020-12-22] MEDS: metFORMIN HCL 500 MG TABLET (FP) PO SCH ×2 (06:06→16:39)
[2020-12-22] MEDS: GABAPENTIN 400 MG CAPSULE PO SCH ×3 (06:06→21:03)
[2020-12-22] MEDS: INSULIN (NOVOLOG) ASPART 100 UNITS/ML 10ML VIAL SQ SCH ×2 (06:06→16:42)
[2020-12-22] MEDS: ESCITALOPRAM OXALATE 10 MG TABLET PO SCH (10:38)
[2020-12-22] MEDS: PRENATAL VITAMINS W/ FOLIC ACID TABLET (FP) PO SCH (10:38)
[2020-12-22] MEDS: PANTOPRAZOLE 20 MG TABLET PO SCH (10:38)
[2020-12-22] MEDS: IBUPROFEN 400 MG TABLET (FP) PO PRN (12:00)
[2020-12-22 12:08] LABS: CHLORIDE 101 mmol/L (98-107); SODIUM 133 mmol/L (136-145)
[2020-12-22 12:14] LABS: HEMATOCRIT 41.7 % (35.4-49); HEMOGLOBIN 14.3 GM/dL (11.7-16.9); MCH 29.6 pg (25.7-33.7); MCHC 34.4 g/dl (32.0-35.9); MEAN CELL VOLUME 86.2 fl (80-96); MEAN PLT VOLUME 9.7 fl (7.5-11.1); PLATELET COUNT 174 K/MM3 (134-434); RBC 4.83 M/mm3 (4.00-5.60); WHITE BLOOD COUNT 3.5 K/mm3 (4.0-10.0)
[2020-12-22 12:16] LABS: ALBUMIN 3.8 g/dl (3.4-5.0); ANION GAP 8 MMOL/L (8-16); BLOOD UREA NITROGEN 9.7 mg/dL (7-18); CALCIUM 8.5 mg/dL (8.5-10.1); CO2 24 mmol/L (21-32)
[2020-12-22 12:17] LABS: SGPT/ALT 55 U/L (13-61)
[2020-12-22 12:18] LABS: SGOT/AST 26 U/L (15-37)
[2020-12-22] MEDS ORDERED: INSULIN (NOVOLOG) ASPART 100 UNITS/ML 10ML VIAL SQ ONE (12:18)
[2020-12-22 12:19] LABS: BILIRUBIN,TOTAL 0.4 mg/dL (0.2-1); CREATININE 1.1 mg/dL (0.55-1.3); TOT PROT 7.3 g/dl (6.4-8.2)
[2020-12-22 12:20] LABS: ALK PHOS 94 U/L (45-117)
[2020-12-22 12:22] LABS: GLUCOSE,RANDOM 472 mg/dL (74-106)
[2020-12-22 13:02] LABS: HIV INTERPRETATION NEGATIVE (NEGATIVE)
[2020-12-22] MEDS ORDERED: INSULIN (NOVOLOG) ASPART 100 UNITS/ML 10ML VIAL ONE ×2 (13:54→16:39)
[2020-12-22 14:35] LABS: URINE APPEARANCE CLEAR; URINE BILIRUBIN NEGATIVE (NEGATIVE); URINE COLOR YELLOW; URINE GLUCOSE (UA) >=1000 (NEGATIVE); URINE KETONE NEGATIVE (NEGATIVE)
[2020-12-22 14:36] LABS: EPI CELLS 0.8 /uL (0-25.1); HYALINE CASTS 0.38 /uL (0-3.1); URINE BACTERIA 17.2 /uL (0-1359); URINE LEUK ESTERASE NEGATIVE (NEGATIVE); URINE NITRITE NEGATIVE (NEGATIVE); URINE PROTEIN NEGATIVE (NEGATIVE); URINE RBC 3.7 /uL (0-23.9); URINE UROBILINOGEN 0.2 mg/dL (0.2-1.0)
[2020-12-22] MEDS: INSULIN SLIDING SCALE (NOVOLOG) 1 VIAL SQ SCH ×2 (16:42→21:07)
[2020-12-22] MEDS: MAG HYDROX/AL HYDROX/SIMETH 30 ML UNIT-DOSE CUP PO PRN (18:41)
[2020-12-22] MEDS: MELATONIN 5 MG TABLETS PO SCH (21:03)
[2020-12-22] MEDS: THIAMINE HCL 100 MG TABLET (FP) PO SCH (21:03)
[2020-12-22] MEDS: LISINOPRIL 10 MG TABLET PO SCH (21:03)
[2020-12-22] MEDS: ATORVASTATIN CA 40 MG TABLET (FP) PO SCH (21:03)
[2020-12-22] MEDS: QUEtiapine FUMARATE 200 MG TABLET PO SCH (21:04)
[2020-12-22] MEDS: traZODone HCL 100 MG TABLET (FP) PO SCH (21:04)
[2020-12-22] MEDS: INSULIN (LEVEMIR) 100 UNITS/ML UNITS SQ SCH (21:06)
[2020-12-23] MEDS: GABAPENTIN 400 MG CAPSULE PO SCH ×3 (06:15→21:06)
[2020-12-23] MEDS: metFORMIN HCL 500 MG TABLET (FP) PO SCH ×2 (06:15→16:38)
[2020-12-23] MEDS: IBUPROFEN 400 MG TABLET (FP) PO PRN ×2 (06:20→16:40)
[2020-12-23] MEDS: INSULIN (NOVOLOG) ASPART 100 UNITS/ML 10ML VIAL SQ SCH ×3 (06:22→16:42)
[2020-12-23] MEDS: INSULIN SLIDING SCALE (NOVOLOG) 1 VIAL SQ SCH ×4 (06:24→21:07)
[2020-12-23] MEDS: ESCITALOPRAM OXALATE 10 MG TABLET PO SCH (09:33)
[2020-12-23] MEDS: PANTOPRAZOLE 20 MG TABLET PO SCH (09:33)
[2020-12-23] MEDS: PRENATAL VITAMINS W/ FOLIC ACID TABLET (FP) PO SCH (09:33)
[2020-12-23] MEDS ORDERED: INSULIN (NOVOLOG) ASPART 100 UNITS/ML 10ML VIAL ONE (11:41)
[2020-12-23] MEDS: THIAMINE HCL 100 MG TABLET (FP) PO SCH (21:06)
[2020-12-23] MEDS: LISINOPRIL 10 MG TABLET PO SCH (21:06)
[2020-12-23] MEDS: traZODone HCL 100 MG TABLET (FP) PO SCH (21:06)
[2020-12-23] MEDS: ATORVASTATIN CA 40 MG TABLET (FP) PO SCH (21:06)
[2020-12-23] MEDS: MELATONIN 5 MG TABLETS PO SCH (21:06)
[2020-12-23] MEDS: QUEtiapine FUMARATE 200 MG TABLET PO SCH (21:06)
[2020-12-23] MEDS: INSULIN (LEVEMIR) 100 UNITS/ML UNITS SQ SCH (21:07)
[2020-12-24] MEDS: INSULIN (NOVOLOG) ASPART 100 UNITS/ML 10ML VIAL SQ SCH ×3 (06:11→16:26)
[2020-12-24] MEDS: GABAPENTIN 400 MG CAPSULE PO SCH ×2 (06:11→14:21)
[2020-12-24] MEDS: metFORMIN HCL 500 MG TABLET (FP) PO SCH ×2 (06:11→16:24)
[2020-12-24] MEDS ORDERED: INSULIN (NOVOLOG) ASPART 100 UNITS/ML 10ML VIAL ONE ×3 (06:40→16:27)
[2020-12-24 07:09] VITALS: BP 146/84; PULSE 83; TEMP 97.7
[2020-12-24] MEDS: INSULIN SLIDING SCALE (NOVOLOG) 1 VIAL SQ SCH ×3 (07:27→16:26)
[2020-12-24] MEDS: PANTOPRAZOLE 20 MG TABLET PO SCH (09:20)
[2020-12-24] MEDS: ESCITALOPRAM OXALATE 10 MG TABLET PO SCH (09:20)
[2020-12-24] MEDS: PRENATAL VITAMINS W/ FOLIC ACID TABLET (FP) PO SCH (09:20)
[2020-12-24] MEDS: IBUPROFEN 400 MG TABLET (FP) PO PRN (14:22)
[2020-12-25 10:11] LABS: SARS-CoV-2 NAA Not Detected (Not Detected)
== END 2020-12-24 17:08 | disposition left against medical advice (07) | DRG 894 ==
LOC: YASAS 10:20 → Y3W 15:12
PROVIDERS: ADMIT Allergy & Immunology; ATTEND Allergy & Immunology
PROC: HZ42ZZZ Group Counseling for Substance Abuse Treatment, Cognitive-Behavioral (ICD-10-PCS; principal; 2020-12-21)
DX: F14.20 Cocaine dependence, uncomplicated (principal); F19.282 Other psychoactive substance dependence with psychoactive substance-induced sleep disorder; F31.81 Bipolar II disorder; F11.21 Opioid dependence, in remission; F10.21 Alcohol dependence, in remission; G62.9 Polyneuropathy, unspecified; I10 Essential (primary) hypertension; K21.9 Gastro-esophageal reflux disease without esophagitis; E78.5 Hyperlipidemia, unspecified; E11.9 Type 2 diabetes mellitus without complications; Z79.4 Long term (current) use of insulin; M54.30 Sciatica, unspecified side; G89.29 Other chronic pain; Z91.018 Allergy to other foods
CPT/HCPCS: 36415; 80053; 81003; 82962; 85027; 86780; 87389; C9803; U0003; U0005